=== PATIENT | female | born 1975 | race Caucasian/White ===

== ENCOUNTER 2021-12-07 13:02 | Inpatient (IN) | payer OTHER, BC ==
--- OUTSIDE RECORDS SUMMARY | 2021-12-07 13:08 | XMS REPORT | Continuity of Care Document ---
:1975 Author Organization [facility] t Address [address] [place] [address] Dr. Johnson [address] [place] [address] Care Team Providers Name Role Phone Harriet Cortney Primary Care Physician ROMI LANE Attending Clinician Unavailable Romi Lane DO Attending Clinician CATHRYN GARSIA Attending Clinician Unavailable Cathryn Malloy Attending Clinician Doctor Unassigned, [facility] Attending Clinician Unavailable Radiology Attending Clinician Unavailable RADIOLOGY Attending Clinician Unavailable Lorri KHANNA, Magdalena García Attending Clinician Delilah Gresham MD Attending Clinician MELBA ARROYO Attending Clinician Unavailable YONNY HUERTA Admitting Clinician Unavailable Mp SMALL, Delilah Boykin Admitting Clinician MELBA ARROYO Admitting Clinician Unavailable Payers Payer Name Policy Type Policy Number Effective Date Expiration Date S liliana OPEN ACCESS AETNA [id number] 2012 00:00:00 [employer] EPO AET[employer] HMO [id number] 2014 00:00:00 [facility] [place] [facility] - [id number] 2018 00:00:00 OUT OF STATE Problems Condition Condition Condition Status Onset Resolution Last Treating Co mments Source Name Details Category Date Date Treatment Clinician Date Stroke-lik Stroke-lik Disease Active U nivers e symptoms e symptoms 3 it y of 00:00: [place] [facility] Obesity Obesity Disease Active Univers (BMI (BMI 3- ity of 30-39.9) 30-39.9) 00:00: [place] [address] Medical Branch Migraine Migraine Disease Active Unive rs syndrome syndrome 06-02 ity of 00:00: [place] [address] Medical Branch Allergies, Adverse Reactions, Alerts Allergy Allergy Status Severity Reaction(s) Onset Inactive Treating Comm ents Source Name Type Date Date Clinician No Known DA Active U [facility] 8-15 [facility] [address] [place] [address] NO KNOWN Drug Active [facility] ALLERGIE Class ity of [facility] [place] [facility] Social History Social Habit Start Date Stop Date Quantity Comments Source Exposure to 2021-11-26 2021-12-06 Not sure [facility] SARS-CoV-2 (event) 00:00:00 15:28:00 Medica l Branch Sex Ass[birth year] At [birth year] [facility] 00:00:00 00:00:00 Medical Branch Smoking Status Start Date Stop Date Source Tobacco smoking consumption [facility] Branch Medications Ordered Filled Start Stop Current Ordering Indication Dosage Frequency Signature Comments Components Source Medication Medication Date Date Medication? Clinician (SIG) Name Name ketorolac 10mg 10 mg, Unive rs (TORADOL) 12-06 Oral, ity of tablet 10 23:00: 22:18 ONCE, 1 [place] mg [place] :00 dose, On Medical Mon Branch 12/06/21 at 1800, JOE polyethylen Yes [id number] 17g Take 17 g Univers e glycol 9-12 by mouth ity of 3350 17 00:00: in the [place] gram/dose 00 morning. Medica l powder Branch hydrocortis Yes [id number] 1{appli Insert 1 Univers one-pramovi 12-06 cator} Applicator ity of ne 00:00: into [place] (PROCTOFOAM 00 rectum in Med ical HC) rectal the Branch foam morning and 1 Applicator in the evening. LORazepam 2021- No 1mg 1 mg, Univer s (ATIVAN) 16 03-16 Oral, ity of tablet 1 mg 22:45: 22:12 [place]CE[place] 1 [place] :[place] dose, On Medical Mon Branch 06/09/21 at 1745, JOE amoxicillin 2020-03 Yes 1{tbl} 1 tablet, Univers -clavulanat 2-02 Oral, ity of e 14:00: Q12H, [place] (AUGMENTIN) 00 First dose Me dical 875-125 mg on Michelle Branch per tablet 02/25/21 at 1 tablet 0800, Until Discontinu ed, Routine
Reason for Anti-Infec tive: Documented Infection< br>Documen winston Infection Site: HEENT
D uration of Therapy: 10 days NaCl 0.9% 2020-03- No 1000mL at 999 Uni vers (NS) bolus 04-28-02 mL/hr, ity of infusion 00:00: 02:41 1,000 mL, [place] 1,000 mL 00 :00 IV Medical Infusion, Branch ONCE, 1 dose, On Mon02/24/21 at 1800, STAT acetaminoph 2020-03- No 1000mg 1,000 mg, Univers en 2 12-02 Oral, ity of (TYLENOL) 00:00: 00:34 ONCE, 1 [place] tablet 00 :00 dose, On Medical 1,000 mg Mon Branch 02/24/21 at 1800, Routine amoxicillin 2020-03 Yes [id number] 1{tbl} Take 1 Univers -clavulanat 2-01 tablet by ity of e 875-125 00:00: mouth [place] mg per 00 every 12 Medical tablet (twelve) Branch hours. codeine-gua 2020-03 Yes [id number] 5mL Take 5 mL U nivers ifenesin 2-01 by mouth ity of 10-100 mg/5 00:00: every 6 [place] mL oral 00 (six) Medical solution hours as Branch needed for Cough. Indication s: acute pain amoxicillin 2020-03 Yes [id number] 1{tbl} Take 1 Univers -clavulanat 2-01 tablet by ity of e 875-125 00:00: mouth [place] mg per 00 every 12 Medical tablet (twelve) Branch hours. codeine-gua 2020-03 Yes [id number] 5mL Take 5 mL U nivers ifenesin 2-01 by mouth ity of 10-100 mg/5 00:00: every 6 [place] mL oral 00 (six) Medical solution hours as Branch needed for Cough. Indication s: acute pain amoxicillin 2020-03 Yes [id number] 1{tbl} Take 1 Univers -clavulanat 2-01 tablet by ity of e 875-125 00:00: mouth [place] mg per 00 every 12 Medical tablet (twelve) Branch hours. codeine-gua 2020-03 Yes [id number] 5mL Take 5 mL U nivers ifenesin 2-01 by mouth ity of 10-100 mg/5 00:00: every 6 [place] mL oral 00 (six) Medical solution hours as Branch needed for Cough. Indication s: acute pain amoxicillin 2020-03 Yes [id number] 1{tbl} Take 1 Univers -clavulanat 2-01 tablet by ity of e 875-125 00:00: mouth [place] mg per 00 every 12 Medical tablet (twelve) Branch hours. codeine-gua 2020-03 Yes [id number] 5mL Take 5 mL U nivers ifenesin 2-01 by mouth ity of 10-100 mg/5 00:00: every 6 [place] mL oral 00 (six) Medical solution hours as Branch needed for Cough. Indication s: acute pain aspirin Yes 81mg 81 mg, Univers chewable 3-10 Oral, ity of tablet 81 15:00: DAILY, [place] mg 00 First dose Medical on Mon Branch 06/03/20 at 0900, Until Discontinu ed, Routine atorvastati Yes 20mg 20 mg, Univ ers n (LIPITOR) 3-10 Oral, QHS, it y of tablet 20 03:00: First dose [place] mg 00 on [facility] 06/02/20 at Branch 2100, Until Discontinu ed, Routine aspirin 81 0 Yes [id number] 81mg Take 1 Univers mg chewable 3-10 tablet by ity of tablet 00:00: mouth [place] 00 daily. [facility] aspirin 81 2020-0 Yes [id number] 81mg Take 1 Univers mg chewable 3-10 tablet by ity of tablet 00:00: mouth [place] 00 daily. [facility] aspirin 81 2020-0 Yes [id number] 81mg Take 1 Univers mg chewable 3-10 tablet by ity of tablet 00:00: mouth [place] 00 daily. [facility] aspirin 81 2020-0 Yes [id number] 81mg Take 1 Univers mg chewable 3-10 tablet by ity of tablet 00:00: mouth [place] 00 daily. [facility] aspirin 81 0 Yes [id number] 81mg Take 1 Univers mg chewable 3-10 tablet by ity of tablet 00:00: mouth [place] 00 daily. [facility] aspirin 81 0 Yes [id number] 81mg Take 1 Univers mg chewable 3-10 tablet by ity of tablet 00:00: mouth [place] 00 daily. [facility] aspirin 81 0 Yes [id number] 81mg Take 1 Univers mg chewable 3-10 tablet by ity of tablet 00:00: mouth [place] 00 daily. [facility] paroxetine Yes 10mg Take 10 mg U nivers 10 mg 3-09 by mouth ity of tablet 21:20: daily. [address] paroxetine 0 Yes 10mg Take 10 mg U nivers 10 mg 3-09 by mouth ity of tablet 21:20: daily. [address] paroxetine 0 Yes 10mg Take 10 mg U nivers 10 mg 3-09 by mouth ity of tablet 21:20: daily. [address] perflutren 2020- No [id number] 2mL 2 mL, IV Univers lipid 06-02 03-09 Push, ity of microsphere 21:00: 16:28 ONCE, 1 [place] 00 :00 dose, [facility] (DEFINITY) 06/02/20 at [facility] ch injection 2 1500, mL Routine Saline Yes [id number] 6mL 6 mL, Unive rs Bubble 3 Injection, ity of Study 20:47: SEE-INSTRU [place] 02 CTIONS, Medical Starting Branch [facility] 06/02/20 at 1447, Until Discontinu ed, Routine paroxetine Yes 10mg Take 10 mg U nivers 10 mg -09 by mouth ity of tablet 15:20: daily. [address] paroxetine Yes 10mg Take 10 mg U nivers 10 mg - by mouth ity of tablet 15:20: daily. [address] paroxetine Yes 10mg Take 10 mg U nivers 10 mg -09 by mouth ity of tablet 15:20: daily. [address] paroxetine Yes 10mg Take 10 mg U nivers 10 mg - by mouth ity of tablet 15:20: daily. [address] Sliding Yes Subcutaneo Univ ers Scale 3-09 us, TID ity of Insulin - 14:00: MEALS+HS, [place] Lispro 00 First dose Medical (HumaLOG) + on [facility] 06/02/20 at Testing 0800, Until Discontinu ed, Routine famotidine Yes 20mg 20 [facility], [facility] 3 Oral, BID, it y of tablet 20 14:00: First dose [place] mg 00 on [facility] 06/02/20 at Branch 0800, Until Discontinu ed, Routine heparin Yes 5000U 5,000 Univers (porcine) 06-02 Units, ity of injection 14:00: Subcutaneo [place] 5,000 Units 00 us, Q12H, Med ical First dose Branch on [facility] 06/02/20 at 0800, Until Discontinu ed, Routine aspirin 0 2020- No 325mg 325 mg, [facility] rs E.C. 06-02 Oral, ONCE ity of (ECOTRIN) 07:45: 10:15 NOW, 1 [place] tablet 325 00 :00 dose, [facility] alexa mg 06/02/20 at Branch 0145, STAT LORazepam 0 2020- No 1mg 1 mg, Slow U nivers (ATIVAN) 06-02 IV Push, ity of injection 1 04:45: 04:00 ONCE, 1 [place] mg 00 :00 dose, Mon Medical 06/01/20 at Branch 2245, STAT iohexol 2020-0 2020- No [id number] 100mL 100 mL, U nivers (OMNIPAQUE 06-02-09 Intravenou it y of 350 03:00: 02:49 s, ONCE, 1 [place] BULK-100 00 :00 dose, Mon Medica l mL) 06/01/20 at Branch injection 2100, 100 mL Routine paroxetine 2018-0 Yes 10mg Take 10 mg U nivers 10 mg 9-04 by mouth ity of tablet 23:20: daily. [address] Branch naproxen 2018-0 Yes 500mg Take 1 Univer s (NAPROSYN) 9-04 tablet by ity of 500 mg 00:00: mouth 2 [place] tablet 00 (two) Medical times Branch daily with meals. naproxen 2018-0 Yes 500mg Take 1 Univer s (NAPROSYN) 9-04 tablet by ity of 500 mg 00:00: mouth 2 [place] tablet 00 (two) Medical times Branch daily with meals. naproxen 2018-0 Yes 500mg Take 1 Univer s (NAPROSYN) 9-04 tablet by ity of 500 mg 00:00: mouth 2 [place] tablet 00 (two) Medical times Branch daily with meals. naproxen 2018-0 Yes 500mg Take 1 Univer s (NAPROSYN) 9-04 tablet by ity of 500 mg 00:00: mouth 2 [place] tablet 00 (two) Medical times Branch daily with meals. naproxen 2018-0 Yes 500mg Take 1 Univer s (NAPROSYN) 9-04 tablet by ity of 500 mg 00:00: mouth 2 [place] tablet 00 (two) Medical times Branch daily with meals. naproxen 2018-0 Yes 500mg Take 1 Univer s (NAPROSYN) 9-04 tablet by ity of 500 mg 00:00: mouth 2 [place] tablet 00 (two) Medical times Branch daily with meals. naproxen 2018-0 Yes 500mg Take 1 Univer s (NAPROSYN) 9-04 tablet by ity of 500 mg 00:00: mouth 2 [place] tablet 00 (two) Medical times Branch daily with meals. naproxen 2018-0 Yes 500mg Take 1 Univer s (NAPROSYN) 9-04 tablet by ity of 500 mg 00:00: mouth 2 [place] tablet 00 (two) Medical times Branch daily with meals. Vital Signs Vital Name Observation Time Observation Value Comments Source Systolic blood 2021-12-06 22:20:00 107 mm[Hg] Univer sity of pressure [place] [facility] Diastolic blood 2021-12-06 22:20:00 78 mm[Hg] Unive rsity of pressure [place] [facility] Heart rate 2021-12-06 22:20:00 105 /min Universi ty of [place] [facility] Respiratory rate 2021-12-06 22:20:00 17 /min Univ ersity of [place] [facility] Oxygen saturation in 2021-12-06 22:20:00 98 /min University of Arterial blood by [facility] Pulse oximetry Branch Body temperature 2021-12-06 20:29:00 36.56 Alexandra [facility] ersity of [place] [facility] Body height 2021-12-06 20:29:00 167.6 cm Universi ty of [place] [facility] Body weight 2021-12-06 20:29:00 83.915 kg Universi ty of [place] [facility] BMI 2021-12-06 20:29:00 29.86 kg/m2 Universi ty of [place] [facility] Systolic blood 2021-06-09 22:45:00 120 mm[Hg] Univer sity of pressure [place] [facility] Diastolic blood 2021-06-09 22:45:00 86 mm[Hg] Unive rsity of pressure [place] [facility] Heart rate 2021-06-09 22:45:00 67 /min Universi ty of [place] [facility] Respiratory rate 2021-06-09 22:45:00 18 /min Univ ersity of [place] [facility] Oxygen saturation in 2021-06-09 22:45:00 100 /min University of Arterial blood by [place] [employer] alexa Pulse oximetry Branch Body temperature 2021-06-09 18:42:00 37.11 Alexandra [facility] ersity of [place] [facility] Body height 2021-06-09 18:42:00 167.6 cm Universi ty of [place] [facility] Body weight 2021-06-09 18:42:00 90.719 kg Universi ty of [place] [facility] BMI 2021-06-09 18:42:00 32.28 kg/m2 Universi ty of [place] [facility] Systolic blood 2021-02-25 02:00:00 127 mm[Hg] Univer sity of pressure [place] [facility] Diastolic blood 2021-02-25 02:00:00 85 mm[Hg] Unive rsity of pressure [place] [facility] Heart rate 2021-02-25 02:00:00 104 /min Universi ty of [place] [facility] [place] Body temperature 2021-02-25 02:00:00 37.44 Alexandra Univ ersity of [place] [facility] [place] Respiratory rate 2021-02-25 02:00:00 21 /min Univ ersity of [place] [facility] Oxygen saturation in 2021-02-25 02:00:00 94 /min University of Arterial blood by [place] [employer] alexa Pulse oximetry Branch Body height 2021-02-24 21:34:00 165.1 cm Universi ty of [place] [facility] [place] Body weight 2021-02-24 21:34:00 92.987 kg Universi ty of [place] [facility] [place] BMI 2021-02-24 21:34:00 34.11 kg/m2 Universi ty of [place] [facility] Systolic blood 2020-06-02 17:44:00 125 mm[Hg] Univer sity of pressure [place] [facility] Diastolic blood 2020-06-02 17:44:00 73 mm[Hg] Unive rsity of pressure [place] [facility] [place] Heart rate 2020-06-02 17:44:00 69 /min Universi ty of [place] [facility] [place] Body temperature 2020-06-02 17:44:00 36.94 Alexandra Univ ersity of [place] [facility] Oxygen saturation in 2020-06-02 17:44:00 97 /min University of Arterial blood by [place] [employer] alexa Pulse oximetry Branch Respiratory rate 2020-06-02 13:30:00 15 /min Univ ersity of [place] [facility] Body height 2020-06-02 07:07:00 167.6 cm Universi ty of [place] [facility] Body weight 2020-06-02 07:07:00 92.08 kg Universi ty [facility] [place] [facility] BMI 2020-06-02 07:07:00 32.77 kg/m2 [facility]i ty [facility] [place] [facility] Procedures Procedure Date / Time Performing Source Performed Clinician VILLA FARLEY 2021-12-[address] [facility] 21:01:00 Medical Branch CONSENT/REFUSAL FOR DIAGNOSIS 2021-12-06 Doctor Unassigned, [facility] AND TREATMENT 20:03:29 [facility] [place] POCT TEST 2021-06-09 Singer [facility] 19:19:00 Medical Branch XR CHEST 1 VW 2021-06-09 Singer [facility] [place] 19:15:07 Medical Branch LIPASE 2021-06-09 Singer [facility] [place] 18:57:00 Medical Branch TROPONIN I 2021-06-09 Singer [facility] [place] 18:57:00 Medical Branch COMP. METABOLIC PANEL ([id number]) 2021-06-09 Yonny Huerta [facility] 18:57:00 Medical Branch CBC WITH DIFF 2021-06-09 Singer [facility] [place] 18:57:00 Medical Branch PROTHROMBIN TIME / INR 2021-06-09 [facility] 18:57:00 Medical Branch ACTIVATED PARTIAL THRMPLAS 2021-06-09 Singer Yonny [facility] [place] 18:57:00 Medical Branch HB ECG ROUTINE & RHYTHM STRIP 2021-06-09 [facility] 18:49[facility]53 Medical Branch NOTICE OF PRIVACY PRACTICES 2021-06-09 Doctor Unasspavel, [facility] 18:40:08 [facility] [place] CONSENT/REFUSAL FOR DIAGNOSIS 2021-06-09 Doctor Unassigned, [facility] AND TREATMENT 18:38:49 [facility] [place] BASIC METABOLIC PANEL (NA, K, 2021-02-25 Cathryn Garsia [facility] CL, CO2, GLUCOSE, BUN, 00:25:00 Medical B ran CREATININE, CA) CBC WITH DIFF 2021-02-25 Cathryn Garsia [facility] 00:25:00 Medical Branch D-DIMER 2021-02-25 Cathryn Garsia [facility] 00:25:00 Medical Branch XR CHEST 2 VW 2021-02-24 Singer [facility] [place] 21:56:15 Medical Branch COVID-19 (ID NOW RAPID 2021-02-24 Singer [facility] TESTING) 21:40:00 Medical Branch CONSENT/REFUSAL FOR DIAGNOSIS 2021-02-24 Doctor Unassigned, [facility] AND TREATMENT 21:21:56 [facility] Medical Branch ASSIGNMENT OF BENEFITS 2020-08-11 Doctor Unassigned, [facility] 21:10:39 [facility] POCT GLUCOSE (AUTOMATED) 2020-06-02 Delilah Gresham [facility] 19:11:00 [facility] TRANSTHORACIC ECHO (TTE) 2020-06-02 [facility] COMPLETE W/ CONTRAST 16:35:00 [facility] POCT GLUCOSE (AUTOMATED) 2020-06-02 Delilah Gresham [facility] 15:45:00 [facility] MR STROKE BRAIN WO CONTRAST 2020-06-02 [facility] 11:33:13 [facility] VITAMIN B12, LEVEL 2020-06-02 [facility] 10:22:00 [facility] TEST, SERUM 2020-06-02 [facility] 10:22:00 [facility] FREE T4 2020-06-02 [facility] 10:22:00 [facility] LIPID PANEL ([id number])(TOTAL 2020-06-02 [facility] CHOLESTEROL, TRIGLYCERIDES, 10:22:00 [facility] HDL) ANTI-NUCLEAR ANTIBODY SCREEN 2020-06-02 [facility] 10:22:00 [facility] HOMOCYSTEINE 2020-06-02 [facility] 10:22:00 [facility] FACTOR 5 LEIDEN 2020-06-02 [facility] 10:22:00 [facility] COVID-19 (ID NOW RAPID 2020-06-02 Magdalena Blackmon [facility] TESTING) 03:31:[address] [facility] [address] STROKE ANGIOGRAM HEAD 2020-06-02 Magdalena Blackmon [facility] 02:59:[address] [facility] [address] STROKE ANGIOGRAM NECK 2020-06-02 Magdalena Blackmon [facility] 02:59:[address] [facility] [address] STROKE HEAD WO CONTRAST 2020-06-02 Magdalena Blackmon [facility] 02:41:00 [facility] Branch POCT TEST 2020-06-02 Lorri [facility] [address] 02:26:00 [facility] POCT GLUCOSE (AUTOMATED) 2020-06-02 Magdalena Blackmon [facility] 02:21:00 Medical Branch LIPASE 2020-06-02 Magdalena Blackmon [facility] [place]as 01:40:00 [facility] TROPONIN I 2020-06-02 Zena Blackmonala [facility] ex 01:40:00 [facility] THYROID STIMULATING HORMONE 2020-06-02 Magdalena Blackmon [facility] 01:40:00 [facility] HEPATIC FUNCTION PANEL 2020-06-02 Magdalena Blackmon [facility] ([id number]) (ALB,T.PRO,BILI 01:40:00 [facility] Branch T,BU/BC,ALT,AST,ALK PHOS) BASIC METABOLIC PANEL (NA, K, 2020-06-02 Magdalena Blackmon [facility] CL, CO2, GLUCOSE, BUN, 01:40:00 [facility] ranch CREATININE, [place]) CBC WITH DIFF 2020-06-02 [facility] 01:40:00 [facility] GLYCOSYLATED HEMOGLOBIN (A1C) 2020-06-02 [facility] 01:40:00 [facility] PROTHROMBIN TIME / INR 2020-06-02 Magdalena Blackmon [facility] 01:40:00 [facility] Branch D-DIMER 2020-06-02 [facility] 01:40:00 [facility] Branch ACTIVATED PARTIAL THRMPLAS 2020-06-02 Magdalena Blackmon [facility] ELENITA 01:40:00 [facility] Branch URINALYSIS 2020-06-02 [facility] [place] 01:40:00 [facility] N-TERMINAL PRO-BNP 2020-06-02 Zena Blackmonala Teresita [facility] 01:40:00 [facility] ADC / LCC - DRUG SCREEN 2020-06-02 Magdalena Blackmon [facility] TRIAGE 01:40:00 [facility] HB ECG ROUTINE & RHYTHM STRIP 2020-06-02 Magdalena Blackmon [facility] 01:34:59 Medical Branch CONSENT/REFUSAL FOR DIAGNOSIS 2020-06-02 Doctor Unassigned, [facility] AND TREATMENT 01:17:58 [facility] ELECTROENCEPHALOGRAM 2020-06-02 Shayan Cespedes, [facility] 00:00:00 [facility] AGREEMENTS AUTHORIZATIONS AND 2020-06-01 Doctor Unasspavel, [facility] IRREVOCABLE ASSIGNMENTS (FORM 06:01:00 [facility] Wi dical Branch 2000) HOSPITAL ADMISSION 2020-06-01 Doctor Unassigned, [facility] 06:01:00 [facility] XR CHEST 2 VW COVID 2020-04-07 Requisition, Paper [facility] 20:02:22 Medical Branch Encounters Start End Encounter Admission Attending Care Care Encounter Source Date/Time Date/Time Type Type Clinicians Facility Department ID 2021-07-15 Outpatient [facility] [id number] [place] 09:44:36 [id number] [facility] 2021-01-[address] [facility] [id number] Univers 04:18:07 ity [facility] 2021-12-06 2021-12-06 Emergency [facility] [id number] Univers 15:32:00 17:39:00 ROMI [facility] 2021-12-06 2021-12-06 Emergency [facility] [id number] Univers 15:32:00 17:39:00 Romi GOODWIN [id number] i ty of [place] [id number] [facility] [id number] [address] 2021-06-09 2021-06-09 Emergency X [facility] [id number] Univers 13:46:00 18:36:00 CATHRYN ity [facility] 2021-06-09 2021-06-09 Emergency [facility] [id number] Univers 13:46:00 18:36:00 Cathryn Velázquez BUDDY [id number] i ty of [place] [id number] [facility] [id number] [address] 2021-06-09 2021-06-09 Orders Doctor BRAVO [id number] Univers 00:00:00 00:00:00 Only Unassigned, [place] [id number] ity of [facility]amo [facility] [id number] [place] [id number] [address] 2021-02-24 2021-02-24 Emergency X [facility] ERT [id number] Univers 15:46:00 20:45:00 CATHRYN ity [facility] 2021-02-24 2021-02-24 Emergency [facility] [id number] Univers 15:46:00 20:45:00 Cathryn S BUDDY [id number] i ty [facility] [id number] [facility] [id number] [facility] 084 [place] 2020-08-11 2020-08-11 Hospital Radiology [facility] [id number] Univers 16:12:09 23:59:00 Encounter Buddy [id number] ity [facility] [id number] [facility] [id number] [facility] 807 Branch 2020-08-11 2020-08-[address] [facility] [id number] Univers 16:15:00 16:15:[id number] [facility] 2020-08-11 2020-08-[address] [facility] [id number] Univers 00:00:00 00:00:[address] [facility] 2020-08-11 2020-08-11 Orders Doctor BRAVO [id number] Univers 00:00:00 00:00:00 Only UnassignedFEDERICO [id number] ity of Vamo [facility] [id number] [place] as [id number] [address] 2020-06-01 2020-06-02 [facility] Magdalena Blackmon [id number] Univers 19:27:00 15:00:00 Encounter Delilah Gresham [id number] ity of Hospital [id number] [facility] [id number] [facility] 098 Branch 2020-05-05 2020-05-05 Emergency X ADY [facility] ERT [id number] Univers 12:19:00 12:19:00 CATHRYN [facility] 2020-04-07 2020-04-07 Hospital Radiology [facility] [id number] Univers 13:50:35 23:59:00 Encounter Buddy [id number] [facility] [id number] [facility] [id number] [facility] 807 Branch 2020-04-07 2020-04-[address] [facility] [id number] [facility] 00:00[facility]00 00:00:00 [facility] 2020-01-23 2020-01-24 Outpatient E [facility] MED [address] [facility] 10:33:00 12:44:00 PETER Results Test Description Test Time Test Comments Results Result Comments Source TROPONIN I 2021-06-09 19:59:02 Test Item Value Reference Range Interpretation Comme nts TROPONIN I (test code = 0.001 ng/mL See_Comment [Au tomated message] The 5203338212) system which ge nerated this result tra nsmitted reference range : <=0.034. The reference r belkis was not used to int erpret this result as normal/abnormal . MARIAM (test code = MARIAM) Reference (Normal) Range (defined by the 99th percentile reference limit): <= 0.034 ng/mL Note: Cardiac troponin begins to rise 3-4 hours after the onset of ischemia. Repeat in 4-6 hours if the sample was drawn within 3-4 hours of the onset of the symptom and found normal. Diagnosis of myocardial injury is made with acute changes in cTn concentrations with at least one serial sample above the 99th percentile upper reference limit (URL), taken together with the patient's clinical presentation. Biotin has been reported to cause a negative bias, interpret results relative to patient's use of biotin. Lab Interpretation Normal (test code = 30783-3) [facility]OL[facility] (88127)2021-06-09 19:48:18 Test Item Value Reference Range Interpretation Comments NA (test code = 138 mmol/L 135-145 1062928221) K (test code = 4.1 mmol/L 3.5-5.0 1375346875) CL (test code = 102 mmol/L 98-108 7584842099) CO2 TOTAL (test code 27 mmol/L 23-31 = 2338473146) AGAP (test code = 2-16 8673491430) BUN (test code = 10 mg/dL 7-23 1438324095) GLUCOSE (test code = 83 mg/dL 70-110 6738543104) CREATININE (test code 0.71 mg/dL 0.50-1.04 = 1213804149) TOTAL BILI (test code 0.5 mg/dL 0.1-1.1 = 7738464726) CALCIUM (test code = 9.1 mg/dL 8.6-10.6 3591609251) T PROTEIN (test code 7.4 g/dL 6.3-8.2 = 4621222780) ALBUMIN (test code = 4.6 g/dL 3.5-5.0 7277154227) ALK PHOS (test code = 78 U/L 34-122 7155317610) ALTv (test code = 14 U/L 5-35 1742-6) AST(SGOT) (test code 23 U/L 13-40 = 4865986857) eGFR (test code = mL/min/1.73m2 4316770078) MARIAM (test code = MARIAM) Association of Glomerular Filtration Rate (GFR) and Staging of Kidney Disease* + + +- +| GFR (mL/min/1.73 m2) ?| With Kidney Damage ?| ?Without Kidney Damage+ ------+ ----+ ------+| ?>90 ?| ?Stage one ?| ? Normal ?+ -+ + -+| ?60-89 ?| ?Stage two ?| ? Decreased GFR ? + + +- +| ?30-59 ?| ?Stage three ?| ? Stage three ? + + +- +| ?15-29 ?| ?Stage four ? | ? Stage four ?+ -+ + -+| ?<15 (or dialysis) ? ?| ?Stage five ? | ? Stage five ?+ -+ + -+ *Each stage assumes the associated GFR level has been in effect for at least three months. ?Stages 1 to 5, with or without kidney disease, indicate chronic kidney disease. Notes: Determination of stages one and two (with eGFR >59mL/min/1.73 m2) requires estimation of kidney damage for at least three months as defined by structural or functional abnormalities of the kidney, manifested by either:Pathological abnormalities or Markers of kidney damage (including abnormalities in the composition of the blood or urine or abnormalities in imaging tests). [facility] CenterLIPASE, [id number] 19:47:42 Test Item Value Reference Range Interpretation Comments LIPASE (test code = 2147655517) 83 U/L 0-220 Lab Interpretation (test code = Normal 17195-6) [facility]eraPTT2022-[facility]-16 19:45:01 Test Item Value Reference Range Interpretation Comments APTT Patient (test See_Comment [Automat ed code = 3173-2) message] The system which generated this result transmitted reference range : 23 - 38 Seconds . The reference range was not used to interpr et this result as normal/abnormal . MARIAM (test code = MARIAM) The [facility] patient population mean normal value for aPTT is 30 seconds. Lab Interpretation Normal (test code = 04439-1) [facility] CenterPROTHROMBIN TIME / [id number] 19:42:59 Test Item Value Reference Range Interpretation Comments PROTIME PATIENT (test See_Comment [Auto mated message] code = 5964-2) The system [facility] generated this result transmitted ref erence range: 12.0 - 1 4.7 Seconds. The re ference range was not u sed to interpret this result as normal/abnor mal. INR (test code = 6301-6) Nor mal INR <1.1; Warfarin Therap eutic range 2.0 to 3. 0 or 2.5 to 3.5, dep ending upon the indica tions. Lab Interpretation (test Normal code = 17083-0) [facility] CenterCBC WITH [id number] 19:35:16 Test Item Value Reference Range Interpretation Comments WBC (test code = See_Comment [Automated message] 6690-2) The system whic h generated this result transmitted ref erence range: 4.30 - 1 1.10 10*3/?L. The re ference range was not u sed to interpret this result as normal/abnor mal. RBC (test code = See_Comment [Automated message] 789-8) The system [employer] generated this result transmitted ref erence range: 3.93 - 5 .25 10*6/?L. The re ference range was not u sed to interpret this result as normal/abnor mal. HGB (test code = 12.4 g/dL 11.6-15.0 718-7) HCT (test code = 37.4 % 35.7-45.2 4544-3) MCV (test code = 94.7 fL 80.6-95.5 787-2) MCH (test code = 31.4 pg 25.9-32.8 785-6) MCHC (test code = 33.2 g/dL 31.6-35.1 786-4) RDW-SD (test code 44.7 fL 39.0-49.9 = 03048-2) RDW-CV (test code 12.8 % 12.0-15.5 = 788-0) PLT (test code = See_Comment [Automated message] 777-3) The system [employer] generated this result transmitted ref erence range: 166 - 35 8 10*3/?L. The re ference range was not u sed to interpret this result as normal/abnor mal. MPV (test code = 9.7 fL 9.5-12.9 77249-5) NRBC/100 WBC (test See_Comment [Automat ed message] code = 5061368616) The [employer] which generated this result transmitted ref erence range: 0.0 - 10 .0 /100 WBCs. The refer ence range was not u sed to interpret this result as normal/abnor mal. NRBC x10^3 (test <0.01 See_Comment [Automated message] code = 4830267321) The syste m which generated this result transmitted ref erence range: 10*3/?L. The reference range was not used to interpr et this result as normal/abnormal . GRAN MAT (NEUT) % 57.6 % (test code = 123-8) IMM GRAN % (test 0.20 % code = 6424853538) LYMPH % (test code 32.6 % = 736-9) MONO % (test code 7.7 % = 5905-5) EOS % (test code = 1.3 % 713-8) BASO % (test code 0.6 % = 706-2) GRAN MAT 3.08 10*3/uL 1.88-7.09 x10^3(ANC) (test code = 2994710124) IMM GRAN x10^3 <0.03 0.00-0.06 (test code = 2848219350) LYMPH x10^3 (test 1.74 10*3/uL 1.32-3.29 code = 731-0) MONO x10^3 (test 0.41 10*3/uL 0.33-0.92 code = 742-7) EOS x10^3 (test 0.07 10*3/uL 0.03-0.39 code = 711-2) BASO x10^3 (test 0.03 10*3/uL 0.01-0.07 code = 704-7) [facility] CenterPOCT [id number] 19:19:00 Test Item Value Reference Range Interpretation Comments POCT PREG (test code = 1605) Negative On board controls acceptable with Postive C Line (test code = 3574) POCT PREG LOT # (test code = 3575) [id number] POCT PREG TEST DATE (test 05/24/2022 code = 3576) Lab Interpretation (test code = Normal 98806-9) [facility] CenterD-[id number] 01:07:30 Test Item Value Reference Interpretation Comments Range D-DIMER (test code = See_Comment [Autom ated 1059250716) message] The system which generated this result transmitted reference range : <0.41 ?g/mL (FEU). The reference range was not used to interpret this result as normal/abnormal . MARIAM (test code = This test may be MARIAM) used in conjunction with a clinical pretest probability (PTP) assessment model to exclude venous thromboembolism (VTE) in patients suspected of deep venous thrombosis (DVT) and pulmonary embolism (PE) A D-Dimer value less than 0.50 ?g/ml (FEU) has a negative predicative value of 96 to 100% (95% CI)and 97 to 100% (95% CI) as an aid in the diagnosis of deep vein thrombosis (DVT) and pulmonary embolism when there is low or moderate pretest probability of PE or DVT. D-Dimer values are expressed in initial fibrinogen equivalent units (FEU)" The assay results should be used with other information, including the clinical context, in forming a diagnosis. Lab Interpretation Normal (test code = 19876-7) [facility] METABOLIC PANEL (NA, K, CL, CO2, GLUCOSE, BUN, CREATININE, CA)2021-02-25 01:06:48 Test Item Value Reference Range Interpretation Comments NA (test code = 131 mmol/L 135-145 L 4858242429) K (test code = 4.3 mmol/L 3.5-5.0 0915366298) CL (test code = 100 mmol/L 98-108 3593187520) CO2 TOTAL (test code = 22 mmol/L 23-31 L 1077629427) AGAP (test code = 2-16 8148325183) BUN (test code = 9 mg/dL 7-23 8554428196) GLUCOSE (test code = 95 mg/dL 70-110 1024978877) CREATININE (test code = 0.78 mg/dL 0.50-1.04 8027473003) CALCIUM (test code = 9.3 mg/dL 8.6-10.6 9941493414) eGFR (test code = mL/min/1.73m2 3210938549) MARIAM (test code = MARIAM) Association of Glomerular Filtration Rate (GFR) and Staging of Kidney Disease* + --+ --+ ------+| GFR (mL/min/1.73 m2) ?| With Kidney Damage ?| ?Without Kidney Damage+ --------+ --------+ +| ?>90 ?| ?Stage one ?| ? Normal ?+ ---+ ---+ -------+| ?60-89 ?| ?Stage two ?| ? Decreased GFR ? + --+ --+ ------+| ?30-59 ?| ?Stage three ?| ? Stage three ? + --+ --+ ------+| ?15-29 ?| ?Stage four ? | ? Stage four ?+ ---+ ---+ -------+| ?<15 (or dialysis) ? ?| ?Stage five ? | ? Stage five ?+ ---+ ---+ -------+ *Each stage assumes the associated GFR level has been in effect for at least three months. ?Stages 1 to 5, with or without kidney disease, indicate chronic kidney disease. Notes: Determination of stages one and two (with eGFR >59mL/min/1.73 m2) requires estimation of kidney damage for at least three months as defined by structural or functional abnormalities of the kidney, manifested by either:Pathological abnormalities or Markers of kidney damage (including abnormalities in the composition of the blood or urine or abnormalities in imaging tests). Lab Interpretation Abnormal (test code = 05998-8) [facility] WITH [id number] 00:59:51 Test Item Value Reference Range Interpretation Comments WBC (test code = See_Comment [Automated 5295-2) message] The sy stem which generated this result transmitted reference range : 4.30 - 11.10 10*3/?L. The reference range was not used to interpret this result as normal/abnormal . RBC (test code = See_Comment [Automated 843-8) message] The sy stem which generated this result transmitted reference range : 3.93 - 5.25 10*6/?L. The reference range was not used to interpret this result as normal/abnormal . HGB (test code = 13.1 g/dL 11.6-15.0 718-7) HCT (test code = 39.6 % 35.7-45.2 4544-3) MCV (test code = 93.6 fL 80.6-95.5 787-2) MCH (test code = 31.0 pg 25.9-32.8 785-6) MCHC (test code = 33.1 g/dL 31.6-35.1 786-4) RDW-SD (test code = 42.3 fL 39.0-49.9 50576-2) RDW-CV (test code = 12.3 % 12.0-15.5 788-0) PLT (test code = See_Comment [Automated 127-3) message] The sy stem which generated this result transmitted reference range : 166 - 358 10*3/ ?L. The reference r belkis was not used to interpret this result as normal/abnormal . MPV (test code = 9.6 fL 9.5-12.9 88379-1) NRBC/100 WBC (test See_Comment [Automat ed code = 4225943263) message] The system which generated this result transmitted reference range : 0.0 - 10.0 /100 WBCs. The refer ence range was not u sed to interpret th is result as normal/abnormal . NRBC x10^3 (test code <0.01 See_Comment [Auto mated = 8515680516) message] The s ystem which generated this result transmitted reference range : 10*3/?L. The reference range was not used to interpret this result as normal/abnormal . GRAN MAT (NEUT) % 76.7 % (test code = 770-8) IMM GRAN % (test code 0.50 % = 1849108415) LYMPH % (test code = 12.0 % 736-9) MONO % (test code = 8.9 % 5905-5) EOS % (test code = 1.4 % 713-8) BASO % (test code = 0.5 % 706-2) GRAN MAT x10^3(ANC) 5.00 10*3/uL 1.88-7.09 (test code = 6442238519) IMM GRAN x10^3 (test 0.03 10*3/uL 0.00-0.06 code = 9061527245) LYMPH x10^3 (test code 0.78 10*3/uL 1.32-3.29 L = 731-0) MONO x10^3 (test code 0.58 10*3/uL 0.33-0.92 = 742-7) EOS x10^3 (test code = 0.09 10*3/uL 0.03-0.39 711-2) BASO x10^3 (test code 0.03 10*3/uL 0.01-0.07 = 704-7) Lab Interpretation Abnormal (test code = 96234-7) [facility] CenterSCR [facility] PATY CAD [id number] 14:36:56Name: Jelena : 1975 Sex: F - SCR MAMM BILATERAL PATY CAD DIGITALBILATERAL DIGITAL SCREENING MAMMOGRAM 3D/2D WITH CAD: 09/16/2020LINICAL: Asymptomatic. Digital breast tomosynthesis was performed in addition to routine CC and MLO views. Current mammographic images were evaluated by [employer] CAD (computer-aided detection) software. Comparison is made to exams dated 06/28/2016 mammogram - [facility], 07/30/2013 mammogram, and 07/02/2012 mammogram - [facility]. There are scattered fibroglandular tissues in both breasts. There are benign calcifications in the right breast. No suspicious mass, architectural distortion, malignant type calcification, or lymph node abnormality detected. Breast architecture is stable compared to prior exams.IMPRESSION: BENIGNThere is no mammographic evidence of malignancy. Resume annual screening mammography in one year. Jennifer Park M.D. scteresita/penrad:09/21/2020 14:36:56 Clerk Travel Reservations: Jessica Gomez MM, [facility]ammographyletter sent: BIRADS 1-2 Normal Mammogram BI-RADS: 2 BenignAnti-Nuclear Antibody [id number] 19:38:26 Test Item Value Reference Range Interpretation Comments RADHA (test code = Positive Negative A 0271035767) MARIAM (test code = MARIAM) Negative - No Anti-Nuclear Antibodies detected by IFA.Positive - RADHA IFA screen performed with a 1:80 dilution in adults and a 1:40 dilution in pediatrics. Any RADHA "Positive" will have titer performed and reported separately.Negative - No Anti-Nuclear Antibodies detected by IFA.Positive - RADHA IFA screen performed with a 1:80 dilution in adults and a 1:40 dilution in pediatrics. Any RADHA "Positive" will have titer performed and reported separately. Lab Interpretation (test Abnormal code = 99046-8) [facility] GLUCOSE (AUTOMATED)2020-06-02 19:12:26 Test Item Value Reference Range Interpretation Comments POCT GLU (test code = 0061819292) 89 mg/dL 70-110 Lab Interpretation (test code = Normal 90616-9) [facility] GLUCOSE (AUTOMATED)2020-06-02 15:51:17 Test Item Value Reference Range Interpretation Comments POCT GLU (test code = 0920223110) 183 mg/dL 70-110 H Lab Interpretation (test code = Abnormal 37376-4) [facility] CenterFACTOR 5 [id number] 15:43:58 Test Item Value Reference Range Interpretation Comments FACTOR 5 LEIDEN Normal Normal (test code = 9244440058) MARIAM (test code = Phenotype Characteristics: MARIAM) 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 Incidence: Between 3 and 8 percent of people with ancestry are heterozygous and about 1 in 5000 individuals are homozygous with two copies of the mutation. The mutation is less common in other population.Inheritance: Autosomal dominant. Penetrance: Lifetime risk of thrombosis is 10 percent for heterozygotes and 80 percent for homozygotes. 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 Note: Standardized nomenclature for the Factor 5 Leiden mutation is c.1601G>A (p.Vcr463Pqb). Methodology: Polymerase chain reaction and fluorescence monitoring. Limitations: Rare Factor V mutations (A9047P, S4542X, and Q4546K) and any additional SNPs in the probe binding region may interfere with the target detection and yield an INVALID result. The performance of this assay has not been evaluated with samples from pediatric patients. Counseling and informed consent are recommended for genetic testing. References: OMIM: 611493 https://ghr.nlm.nih.gov/co ndition/nvckbp-q-iaedyt- rombophilia [facility] CenterMR STR[facility]KE BRAIN WO [id number] 13:56:06 No acute intracranial abnormality. EXAMINATION: MR STROKE BRAIN WO CONTRAST HISTORY: Stroke COMPARISON: ?06/01/20 CT TECHNIQUE: Multiplanar and multisequence MRI imaging of the brain wasobtained withoutcontrast. FINDINGS: A few nonspecific foci of T2/FLAIR hyperintensities in the frontal whitematter, which can be seen in patients with migraines.No intracranial hemorrhage or mass. The ventricles, sulci and cisterns are normal in size and symmetric. No acute infarct. Left cerebellar tonsillar ectopia.The calvarium is normal. ?The orbits are grossly unremarkable. Leftmaxillary sinus retention cysts. Left sphenoid sinus mucosal thickening. [facility], Radiant Results Inft User - 06/02/2020 7:57 AM CSTEXAMINATION: MR STROKE BRAIN WO CONTRASTHISTORY: Stroke COMPARISON: 06/01/20 CTTECHNIQUE: Multiplanar and multisequence MRI imaging of the brain wasobtained without contrast.FINDINGS:A few nonspecific foci of T2/FLAIR hyperintensities in the frontal whitematter, which can be seen in patients with migraines.No i ntracranial hemorrhage or mass. The ventricles, sulci and cisterns are normal in size and symmetric.No acute infarct. Left cerebellar tonsillar ectopia.The calvarium is normal. The orbits are grossly unremarkable. Leftmaxillary sinus retention cysts. Left sphenoid sinus mucosal thickening.IMPRESSIONNo acute intracranial abnormality.[facility] CenterGLYCOSYLATED HEMOGLOBIN (A1C)2020-06-02 12:28:07 Test Item Value Reference Range Interpretation Comments HGB A1C (test code = 5.5 % 4.0-6.0 4548-4) MARIAM (test code = MARIAM) %A1C (NGSP) Interpretation (ADA)4.8-5.6 ? ? Normal or (Non-Diabetic Range)5.7-6.4 ? ? Increased Risk (Pre-Diabetic)>6.5 ?Diabetes Indicated Lab Interpretation Normal (test code = 00888-3) [facility] CenterVITAMIN B12, [id number] 12:12:36 Test Item Value Reference Range Interpretation Comments VIT B12 (test code = 349 pg/mL 240-930 0637658039) MARIAM (test code = MARIAM) Biotin has been reported to cause a positive bias, interpret results relative to patient's use of biotin. Lab Interpretation (test Normal code = 93085-0) [facility] CenterFREE [id number] 11:40:12 Test Item Value Reference Range Interpretation Comments FREE T4 (test code = See_Comment [Autom ated message] 4768088370) The system [employer] generated this result transmitted ref erence range: 0.78 - 2 .20 ng/dL:. The ref erence range was not u sed to interpret this result as normal/abnor mal. Lab Interpretation (test Normal code = 09918-1) [facility] CenterHOMOCYSTEINE2021-03-09 11:29:55 Test Item Value Reference Range Interpretation Comments Homocysteine (test code = 6.2 umol/L 4.7-12.6 7307645498) Lab Interpretation (test code = Normal 95326-7) [facility] LIPID PANEL (72705)(TOTAL CHOLESTEROL, TRIGLYCERIDES, HDL)2020-06-02 11:12:32 Test Item Value Reference Range Interpretation Comments CHOL (test code = 160 mg/dL 120-200 0343162029) HDL (test code = 41 mg/dL >50 L 8638287127) HDLC RATIO (test code = See_Comment [Au tomated message] 0493229734) The system [employer] generated this result transmit winston reference range : <=4.5. The refe rence range was not u sed to interpret th is result as normal/abnormal . TRIG (test code = 67 mg/dL 30-170 6891546817) LDL CHOL (test code = 106 mg/dL See_Comment [Auto mated message] 13725-2) The system [employer] generated this result transmit winston reference range : <=160. The refe rence range was not u sed to interpret th is result as normal/abnormal . VLDL (test code = 13 mg/dL 5-60 0826465076) Lab Interpretation (test Abnormal code = 85974-4) [facility] CenterPregnancy Test, [id number] 11:10:36 Test Item Value Reference Range Interpretation Comments PREG SERUM (test code Negative = 3269533529) MARIAM (test code = MARIAM) Less than 10 IU/L. ?If low titer or ectopic is suspected, resubmit specimen in 48-72 hours. [facility] CenterUrinalysis2021-03-09 09:14:26 Test Item Value Reference Range Interpretation Comments APPEARANCE (test code = Clear Clear 3000211335) COLOR (test code = Straw Yellow A 6589211169) PH (test code = 4.8-8.0 5477478726) SP GRAVITY (test code = 1.003-1.030 7791948734) GLU U QUAL (test code = Normal Normal 5380843101) BLOOD (test code = Negative Negative 6947950889) KETONES (test code = Negative Negative 5596811425) PROTEIN (test code = Negative Negative 2887-8) UROBILIN (test code = Normal Normal 6188134270) BILIRUBIN (test code = Negative Negative 3681432637) NITRITE (test code = Negative Negative 1442043729) LEUK SIENNA (test code = Negative Negative 7605123549) RBC/HPF (test code = <1 See_Comment [Autom ated message] 5204605899) The system [employer] generated this result transmitted ref erence range: 0 - 3 HP F. The reference range was not used to int erpret this result as normal/abnormal . WBC/HPF (test code = See_Comment [Autom ated message] 0420588140) The system [employer] generated this result transmitted ref erence range: 0 - 5 HP F. The reference range was not used to int erpret this result as normal/abnormal . BACTERIA (test code = Few Negative A 1884231257) SQ EPITH (test code = HPF 1020418934) Lab Interpretation (test Abnormal code = 99659-0) [facility] CenterCOVID-19 (ID NOW RAPID TESTING)2020-06-02 03:50:18 Test Item Value Reference Range Interpretation Comments SARS-CoV-2 Rapid ID NOW Not Detected Not Detected (test code = 51698-2) MARIAM (test code = MARIAM) ID NOW COVID-19 Assay is an isothermal nucleic acid amplification test intended for the qualitative detection of nucleic acid from SARS-CoV-2 viral RNA in nasopharyngeal (PROPELLER ENGINEER) specimens. It is used under Emergency Use Authorization (EUA) by FDA. The limit of detection (LOD) of the assay is 125 Genome Equivalents/mL. A positive result is indicative of the presence of SARS-CoV-2 RNA. ?Clinical correlation with patient history and other diagnostic information is necessary to determine patient infection status. A negative (Not Detected) result does not preclude SARS-CoV-2 infection. In patients with clinical symptoms and other tests that are consistent with SARS-CoV-2 infection, negative results should be treated as presumptive negative and a new specimen should be tested with alternative PCR molecular test. Invalid: Please collect a new specimen for repeat patient testing if clinically indicated. Lab Interpretation Normal (test code = 96119-3) [facility] CenterCT STROKE ANGIOGRAM [id number] 03:32:32 CT head and neck angiograms are unremarkable with no high-grade stenosis,aneurysm or vascular malformation. Preliminary Report Dictated by Resident: Gamaliel Monroe I, [place] MD., have reviewed this study and agree with theabove report.CT STROKE ANGIOGRAM NECK, CT STROKE ANGIOGRAM HEAD HISTORY: Neuro deficit, acute, stroke suspected TECHNIQUE: CTA imaging of the head and neck were obtained afteradministration 100 cc IV Omnipaque contrast. Coronal and sagittal MIPSreformats are provided. COMPARISON: ?None KAKE OF BURGOS FINDINGS: The PICA origin is visualized bilaterally. The basilar artery is normal incaliber. The superior cerebellar arteries are unremarkable. The posteriorcerebral arteries are unremarkable. The large and of the right FAMILY PRACTICE PHYSICIAN ASSISTANT isnoted. A small left posterior communicating artery is visualized. The distal cervical, petrous, cavernous and supraclinoid internal carotidarteries are unremarkable. The anterior and middle cerebral arteries areunremarkable. An anterior communicatingartery is visualized. NECK FINDINGS: Aortic arch and arch vessel origins: Conventional three-vessel arch. Innominate and subclavian arteries: Patent with no evidence of aneurysm orstenosis. Common carotids: Patent with no evidence of aneurysm or stenosis. Vertebral arteries: Patent with no evidence ofaneurysm or stenosis. Cervical soft tissues: Unremarkable. Lung apices: Clear. Cervical spine: Thereis straightening of the cervical lordosis. Partial opacification of the left maxillary sinus. [facility], Radiant Results Inft User - 06/01/2020 9:33 PM CSTCT STROKE ANGIOGRAM NECK, CT STROKE ANGIOGRAM HEADHISTORY: Neuro deficit, acute, stroke suspected TECHNIQUE: CTA imaging of the head and neck were obtained afteradministration 100 cc IV Omnipaque contrast. Coronal and sagittal MIPSreformats are provided.COMPARISON: NoneCIRCLE OF [place] FINDINGS:The PICA origin is visualized bilaterally. The basilar artery is normal incaliber. The superior cerebellar arteries are unremarkable. The posteriorcerebral arteries are unremarkable. The large and of the right FAMILY PRACTICE PHYSICIAN ASSISTANT isnoted. A small left posterior communicating artery is visualized.The distal cervical, petrous, cavernous and supraclinoid internal carotidarteries are unremarkable. The anterior and middle cerebral arteries areunremarkable. An anterior communicating artery is visualized.NECK FINDINGS:Aortic arch and arch vessel origins: Conventional three-vesselarch.Innominate and subclavian arteries: Patent with no evidence of aneurysm orstenosis.Common carotids: Patent with no evidence of aneurysm or stenosis.Vertebral arteries: Patent with no evidence of aneurysm or stenosis.Cervical soft tissues: Unremarkable.Lung apices: Clear.Cervical spine: There is straightening of the cervical lordosis.Partial opacification of the left maxillary sinus.IMPRESSIONCT head and neck angiograms are unremarkable with no high-grade stenosis,aneurysm or vascular malformation.Preliminary Report Dictated by Resident: South Rothman MD., have reviewed this study and agree with theabove report. [facility] [id number] 03:32:32 CT head and neck angiograms are unremarkable with no high-grade stenosis,aneurysm or vascular malformation. Preliminary Report Dictated by Resident: South Blum MD., have reviewed this study and agree with theabove report.CT STROKE ANGIOGRAM NECK, CT STROKE ANGIOGRAM HEAD HISTORY: Neuro deficit, acute, stroke suspected TECHNIQUE: CTA imaging of the head and neck were obtained afteradministration 100 cc IV Omnipaque contrast. Coronal and sagittal MIPSreformats are provided. COMPARISON: ?None KAKE OF [place] FINDINGS: The PICA origin is visualized bilaterally. The basilar artery is normal incaliber. The superior cerebellar arteries are unremarkable. The posteriorcerebral arteries are unremarkable. The large and of the right FAMILY PRACTICE PHYSICIAN ASSISTANT isnoted. A small left posterior communicating artery is visualized. The distal cervical, petrous, cavernous and supraclinoid internal carotidarteries are unremarkable. The anterior and middle cerebral arteries areunremarkable. An anterior communicatingartery is visualized. NECK FINDINGS: Aortic arch and arch vessel origins: Conventional three-vessel arch. Innominate and subclavian arteries: Patent with no evidence of aneurysm orstenosis. Common carotids: Patent with no evidence of aneurysm or stenosis. Vertebral arteries: Patent with no evidence ofaneurysm or stenosis. Cervical soft tissues: Unremarkable. Lung apices: Clear. Cervical spine: Thereis straightening of the cervical lordosis. Partial opacification of the left maxillary sinus. [facility], Radiant Results Inft User - 06/01/2020 9:33 PM CSTCT STROKE ANGIOGRAM NECK, CT STROKE ANGIOGRAM HEADHISTORY: Neuro deficit, acute, stroke suspected TECHNIQUE: CTA imaging of the head and neck were obtained afteradministration 100 cc IV Omnipaque contrast. Coronal and sagittal MIPSreformats are provided.COMPARISON: NoneCIRCLE OF [place] FINDINGS:The PICA origin is visualized bilaterally. The basilar artery is normal incaliber. The superior cerebellar arteries are unremarkable. The posteriorcerebral arteries are unremarkable. The large and of the right FAMILY PRACTICE PHYSICIAN ASSISTANT isnoted. A small left posterior communicating artery is visualized.The distal cervical, petrous, cavernous and supraclinoid internal carotidarteries are unremarkable. The anterior and middle cerebral arteries areunremarkable. An anterior communicating artery is visualized.NECK FINDINGS:Aortic arch and arch vessel origins: Conventional three-vesselarch.Innominate and subclavian arteries: Patent with no evidence of aneurysm orstenosis.Common carotids: Patent with no evidence of aneurysm or stenosis.Vertebral arteries: Patent with no evidence of aneurysm or stenosis.Cervical soft tissues: Unremarkable.Lung apices: Clear.Cervical spine: There is straightening of the cervical lordosis.Partial opacification of the left maxillary sinus.IMPRESSIONCT head and neck angiograms are unremarkable with no high-grade stenosis,aneurysm or vascular malformation.Preliminary Report Dictated by Resident: South Rothman MD., have reviewed this study and agree with theabove report. [facility] CenterACTIVATED PARTIAL THRMPLAS [id number] 03:13:16 Test Item Value Reference Range Interpretation Comments APTT Patient (test See_Comment [Automat ed code = 3173-2) message] The system which generated this result transmitted reference range : 23 - 38 Seconds . The reference range was not used to interpr et this result as normal/abnormal . MARIAM (test code = MARIAM) The [facility] patient population mean normal value for aPTT is 30 seconds. Lab Interpretation Normal (test code = 30756-8) [facility] CenterPROTHROMBIN TIME / [id number] 03:11:16 Test Item Value Reference Range Interpretation Comments PROTIME PATIENT (test See_Comment [Auto mated message] code = 5964-2) The system wh ich generated this result transmitted ref erence range: 12.0 - 1 4.7 Seconds. The re ference range was not u sed to interpret this result as normal/abnor mal. INR (test code = 6301-6) Nor mal INR <1.1; Warfarin Therap eutic range 2.0 to 3. 0 or 2.5 to 3.5, dep ending upon the indica tions. Lab Interpretation (test Normal code = 49624-5) [facility] CenterTHYROID STIMULATING [id number] 02:57:31 Test Item Value Reference Range Interpretation Comments TSH (test code = See_Comment H [Automated message] [id number]) The system [employer] generated this result transmitted ref erence range: 0.45 - 4 .70 mIU/L. The refe rence range was not u sed to interpret this result as normal/abnor mal. Lab Interpretation (test Abnormal code = 00023-9) [facility] CenterCT [facility]KE HEAD WO [id number] 02:52:[address] STROKE HEAD WO CONTRAST HISTORY: Female 45 years Neuro deficit, acute, stroke suspected COMPARISON: CT head dated 11/02/2016 TECHNIQUE: Routine CT head without contrast FINDINGS: The ventricles and cerebral sulci are normal in caliber and configuration.No hydrocephalus, midline shift or pathological extra- axial fluidcollection is present. The basal cisterns are unremarkable. No acute intracranial hemorrhage or mass effect is present. The mazariegos-whitematter differentiation is preserved.No parenchymal attenuation abnormalityis present. The calvarium and skull base are unremarkable. Themastoid air cells areclear. Scattered mild mucoperiosteal thickening is seen in the visualizedparanasal air sinuses. [facility], Radiant Results Inft User - 06/01/2020 8:53 PM CSTCT STROKE HEAD WO CONTRASTHISTORY: Female 45 years Neuro deficit, acute, stroke suspected COMPARISON: CT head dated 11/02/2016TECHNIQUE: Routine CT head without contrastFINDINGS:The ventricles and cerebral sulci are normal in caliber and configuration.No hydrocephalus, midline shift or pathological extra-axial fluidcollection is present. The basal cisterns are unremarkable.No acute intracranial hemorrhage or mass effect is present. The mazariegos-whitematter differentiation is preserved. No parenchymal attenuation abnormalityis present. The calvarium and skull base are unremarkable. The mastoid air cells areclear. Scattered mild mucoperiosteal thickening is seen in the visualizedparanasal air sinuses.IMPRESSIONNormal CT headUnMemorial Hermann [facility] Hospital KingwoodUrinalysis 2020-06-02 02:51:32 Test Item Value Reference Range Interpretation Comments APPEARANCE (test code = Clear Clear 6533278382) COLOR (test code = Straw Yellow A 7177172650) PH (test code = 4.8-8.0 0800339288) SP GRAVITY (test code = 1.003-1.030 1246782115) GLU U QUAL (test code = Normal Normal 3211000990) BLOOD (test code = Negative Negative 3952132617) KETONES (test code = Negative Negative 3399882707) PROTEIN (test code = Negative Negative 2887-8) UROBILIN (test code = Normal Normal 9890691736) BILIRUBIN (test code = Negative Negative 0575691797) NITRITE (test code = Negative Negative 4697412039) LEUK SIENNA (test code = Negative Negative 5320313693) RBC/HPF (test code = See_Comment [Autom ated message] 9510377430) The system [employer] generated this result transmitted ref erence range: 0 - 3 HP F. The reference range was not used to int erpret this result as normal/abnormal . WBC/HPF (test code = <1 See_Comment [Autom ated message] 4272650776) The system [employer] generated this result transmitted ref erence range: 0 - 5 HP F. The reference range was not used to int erpret this result as normal/abnormal . BACTERIA (test code = Few Negative A 2650523131) SQ EPITH (test code = HPF 6949360801) HYAL CAST (test code = See_Comment [Aut omated message] 0594662593) The system [employer] generated this result transmitted ref erence range: <=2 LPF. The reference range was not used to int erpret this result as normal/abnormal . Lab Interpretation (test Abnormal code = 11098-2) [facility] CenterTroponin [id number] 02:39:06 Test Item Value Reference Range Interpretation Comments TROPONIN I (test 0.002 ng/mL See_Comment [Automated code = 7023593941) message] The system which generated this result transmitted reference range : <=0.034. The reference range was not used to interpret this result as normal/abnormal . MARIAM (test code = Equal or Less than MARIAM) 0.034 ng/ml---Normal ?Note: Cardiac troponin begins to rise 3-4 hours after the onset of ischemia. Repeat in 4-6 hours if the sample was drawn within 3-4 hours of the onset of the symptom and found normal. Between 0.035 and 0.120 ng/mL--- Borderline. Questionable myocardial injury or necrosis ? ?Note: Serial measurement may be necessary to confirm or exclude the diagnosis of myocardial injury or necrosis; Clinical correlation (symptoms, EKGs, imaging studies, and others) required; Repeat in 4-6 hours if clinically indicated. ? Equal or Higher than 0.121 ng/mL---Abnormal. Myocardial Injury or Necrosis Likely ? Biotin has been reported to cause a negative bias, interpret results relative to patient's use of biotin. ? Lab Interpretation Normal (test code = 13551-7) [facility] CenterN-TERMINAL [id number] 02:35:47 Test Item Value Reference Range Interpretation Comments NT-proBNP (test code 41 pg/mL See_Comment [Autom ated = 1501544573) message] The system which generated this result transmitted reference range : <=125. The reference range was not used to interpret this result as normal/abnormal . MARIAM (test code = MARIAM) Biotin has been reported to cause a negative bias, interpret results relative to patient's use of biotin. Lab Interpretation Normal (test code = 98241-2) [facility] CenterPOCT GLUCOSE (AUTOMATED)2020-06-02 02:35:07 Test Item Value Reference Range Interpretation Comments POCT GLU (test code = 0277861276) 90 mg/dL 70-110 Lab Interpretation (test code = Normal 65263-2) [facility] CenterBasi Metabolic Panel (NA, K, CL, CO2, GLUCOSE, BUN, CREATININE, CA)2020-06-02 02:27:04 Test Item Value Reference Range Interpretation Comments NA (test code = 137 mmol/L 135-145 9288224644) K (test code = 3.5 mmol/L 3.5-5.0 7975088153) CL (test code = 100 mmol/L 98-108 0975136307) CO2 TOTAL (test code = 27 mmol/L 23-31 7275150062) AGAP (test code = 2-16 0601660041) BUN (test code = 12 mg/dL 7-23 3566196767) GLUCOSE (test code = 92 mg/dL 70-110 4481709016) CREATININE (test code 0.70 mg/dL 0.50-1.04 = 2025882505) CALCIUM (test code = 9.1 mg/dL 8.6-10.6 6772983756) eGFR Calculation mL/min/1.73m2 (Non-) (test code = 1828730782) eGFR Calculation mL/min/1.73m2 () (test code = 3533493303) MARIAM (test code = MARIAM) Association of Glomerular Filtration Rate (GFR) and Staging of Kidney Disease* + -+ + ---+| GFR (mL/min/1.73 m2) ?| With Kidney Damage ?| ?Without Kidney Damage+ -------+ ------+ ---------+| ?>90 ?| ?Stage one ?| ? Normal ?+ --+ -+ ----+| ?60-89 ?| ?Stage two ?| ? Decreased GFR ? + -+ + ---+| ?30-59 ?| ?Stage three ?| ? Stage three ? + -+ + ---+| ?15-29 ?| ?Stage four ? | ? Stage four ?+ --+ -+ ----+| ?<15 (or dialysis) ? ?| ?Stage five ? | ? Stage five ?+ --+ -+ ----+ *Each stage assumes the associated GFR level has been in effect for at least three months. ?Stages 1 to 5, with or without kidney disease, indicate chronic kidney disease. Notes: Determination of stages one and two (with eGFR >59mL/min/1.73 m2) requires estimation of kidney damage for at least three months as defined by structural or functional abnormalities of the kidney, manifested by either:Pathological abnormalities or Markers of kidney damage (including abnormalities in the composition of the blood or urine or abnormalities in imaging tests). [facility] CenterHepatic Function Panel (ALB, T.PRO, BILI T, BU/BC, ALT, AST, ALK PHOS)2020-06-02 02:27:04 Test Item Value Reference Range Interpretation Comments TOTAL BILI (test code = 0968929539) 0.5 mg/dL 0.1-1.1 BILI UNCON (test code = 6471106005) 0.4 mg/dL 0.1-1.1 BILI CONJ (test code = 6822495115) 0.0 mg/dL 0.0-0.3 T PROTEIN (test code = 8976545119) 7.8 g/dL 6.3-8.2 ALBUMIN (test code = 2997116104) 4.8 g/dL 3.5-5.0 ALK PHOS (test code = 1122479514) 85 U/L 34-122 ALTv (test code = 1742-6) 24 U/L 5-35 AST(SGOT) (test code = 8975694878) 27 U/L 13-40 Lab Interpretation (test code = Normal 04401-5) [facility] CenterLipase [id number] 02:26:49 Test Item Value Reference Range Interpretation Comments LIPASE (test code = 6519724298) 72 U/L 0-220 Lab Interpretation (test code = Normal 28991-9) [facility] CenterPOCT [id number] 02:26:00 Test Item Value Reference Range Interpretation Comments POCT PREG (test code = 1605) negative On board controls acceptable with present C Line (test code = 3574) POCT PREG LOT # (test code = 3575) [id number] POCT PREG TEST DATE (test 2021-12-24 code = 3576) Lab Interpretation (test code = Normal 31531-3) [facility] CenterD-[id number] 02:23:46 Test Item Value Reference Interpretation Comments Range D-DIMER (test code = See_Comment H [Autom ated 0626299106) message] The system which generated this result transmitted reference range : <0.41 ?g/mL (FEU). The reference range was not used to interpret this result as normal/abnormal . MARIAM (test code = This test may be MARIAM) used in conjunction with a clinical pretest probability (PTP) assessment model to exclude venous thromboembolism (VTE) in patients suspected of deep venous thrombosis (DVT) and pulmonary embolism (PE) A D-Dimer value less than 0.50 ?g/ml (FEU) has a negative predicative value of 96 to 100% (95% CI)and 97 to 100% (95% CI) as an aid in the diagnosis of deep vein thrombosis (DVT) and pulmonary embolism when there is low or moderate pretest probability of PE or DVT. D-Dimer values are expressed in initial fibrinogen equivalent units (FEU)" The assay results should be used with other information, including the clinical context, in forming a diagnosis. Lab Interpretation Abnormal (test code = 81092-5) [facility] / [facility] - DRUG SCREEN [id number] 02:21:13 Test Item Value Reference Range Interpretation Comments BENZO U (test code = Negative Negative 8009375674) KAYLEE U (test code = Negative Negative 1275189582) AMPHET (test code = Negative Negative 6228990480) THC (test code = Negative Negative 1510018839) METHADONE (test code = Negative Negative 6316834615) Meth U (test code = Negative Negative 5864330552) OPIATES (test code = Negative Negative 4651100123) Cocaine Metabolite (test Negative Negative code = 8873982258) PROPOXY (test code = Negative Negative 0247044841) Tric U (test code = Negative Negative 2350105183) PCP (test code = Negative Negative 9169515052) OXYCOD (test code = Negative Negative 8614668995) MARIAM (test code = MARIAM) Urine Drug Cutoff Ranges Benzodiazepines: ? ? 150 ng/mLBarbiturates: ?200 ng/mLAmphetamine: ? 500 ng/mLCannabinoids: ?50 ?ng/mLMethadone: ? 200 ng/mLMethamphetamine: ? ? 500 ng/mL Opiates: ? 100 ng/mL or 2000 ng/mLCocaine: ? 150 ng/mLPropoxyphene: ?300 ng/mLTricyclics: ?300 ng/mLOxycodone: ? 100 ng/mLPCP: ? 25 ?ng/mL The results are to be used only for medical (i.e., treatment) purposes. Unconfirmed screening results must not be used for non-medical purposes (e.g., employment testing, legal testing). Lab Interpretation (test Normal code = 95398-7) [facility] with [id number] 02:16:05 Test Item Value Reference Range Interpretation Comments WBC (test code = See_Comment [Automated 6690-2) message] The sy stem which generated this result transmitted reference range : 4.30 - 11.10 10*3/?L. The reference range was not used to interpret this result as normal/abnormal . RBC (test code = See_Comment [Automated 789-8) message] The sy stem which generated this result transmitted reference range : 3.93 - 5.25 10*6/?L. The reference range was not used to interpret this result as normal/abnormal . HGB (test code = 13.6 g/dL 11.6-15.0 718-7) HCT (test code = 41.6 % 35.7-45.2 4544-3) MCV (test code = 96.3 fL 80.6-95.5 H 787-2) MCH (test code = 31.5 pg 25.9-32.8 785-6) MCHC (test code = 32.7 g/dL 31.6-35.1 786-4) RDW-SD (test code = 41.4 fL 39.0-49.9 56156-8) RDW-CV (test code = 11.9 % 12.0-15.5 L 788-0) PLT (test code = See_Comment [Automated 777-3) message] The sy stem which generated this result transmitted reference range : 166 - 358 10*3/ ?L. The reference r belkis was not used to interpret this result as normal/abnormal . MPV (test code = 9.9 fL 9.5-12.9 39891-0) NRBC/100 WBC (test See_Comment [Automat ed code = 3397968429) message] The system which generated this result transmitted reference range : 0.0 - 10.0 /100 WBCs. The refer ence range was not u sed to interpret th is result as normal/abnormal . NRBC x10^3 (test code <0.01 See_Comment [Auto mated = 4951716911) message] The s ystem which generated this result transmitted reference range : 10*3/?L. The reference range was not used to interpret this result as normal/abnormal . GRAN MAT (NEUT) % 58.1 % (test code = 770-8) IMM GRAN % (test code 0.40 % = 1399056609) LYMPH % (test code = 31.9 % 736-9) MONO % (test code = 8.1 % 5905-5) EOS % (test code = 1.0 % 713-8) BASO % (test code = 0.5 % 706-2) GRAN MAT x10^3(ANC) 4.66 10*3/uL 1.88-7.09 (test code = 8170053572) IMM GRAN x10^3 (test 0.03 10*3/uL 0.00-0.06 code = 1924927843) LYMPH x10^3 (test code 2.56 10*3/uL 1.32-3.29 = 731-0) MONO x10^3 (test code 0.65 10*3/uL 0.33-0.92 = 742-7) EOS x10^3 (test code = 0.08 10*3/uL 0.03-0.39 711-2) BASO x10^3 (test code 0.04 10*3/uL 0.01-0.07 = 704-7) Lab Interpretation Abnormal (test code = 89005-8) [facility] CenterElectroencephalogram (EEG) - Duration of test: 20-60 [id number] 00:00:00Date and Time of Procedure: 06/02/2020, 11:11:39- 11:31:38 REPORT TECHNICAL SUMMARY: The EEG was recorded digitally. Electrodes were applied using the International 10/20 System of electrode placement. Eye movements and rhythm strip ECG were monitored on separate channels of the ongoing EEG recording. The occipital dominant rhythm consists of moderate amplitude 9-10 Hz activity. More anteriorly, similaras well as faster frequencies are present, including low amplitude 18-22 Hz activities in the anterior leads. Drowsiness does not reveal any abnormalities. Sleep is not seen. Photic stimulation does not elicit any abnormalities. Hyperventilation is not employed as activation technique. No electrographic seizures or epileptiform abnormalities are seen. IMPRESSION: This EEG is normal in wakefulness and drowsiness. Sleep is not seen. An EMU (epilepsy monitoring unit) referral or long-term (24-96 hours)EEG might be beneficial in this case if clinically indicated, as they have significantly greater sensitivity than a 20-60 minute EEG, which has low sensitivity for detecting epileptiform abnormalities e specially when sleep is not seen. The absence of epileptiform abnormalities in a 20-60 minute EEG does not necessarily rule out a diagnosis of epilepsy or the potential for epileptic seizures to occur. Marie Ayala MD Date of interpretation: 06/02/2020Un[facility] KingwoodXR CHEST 2 VW COVID 2020-04-07 20:06:04No signs of acute cardiopulmonary disease. Disclaimer: Generally, the findings on chest imaging in COVID-19 are notspecific, and overlap with other infections, including influenza, H1N1,SARS and MERS.According to the Centers for Disease Control (CDC) and the [employer], viral testingremains the only specific method of diagnosiseven if CXR or CT findings are suggestive of COVID-19. PROCEDURE: CHEST XRAY CLINICAL INDICATION: Bronchitis, not specified as acute or chronic COMPARISON:Previous study of 03/09/2015. FINDINGS: Lungs: Clear Pleura: No pleural effusion or pneumothorax is seen. The heart is normal insize. Cardiothoracic ratio is 12.4/29.0 cm. No acute bony abnormality. [facility], Radiant Results Inft User - 04/07/2020 2:07 PM CSTPROCEDURE: CHEST XRAY CLINICAL INDICATION: Bronchitis, not specified as acute or chronic COMPARISON: Previous study of 03/09/2015.FINDINGS:Lungs: ClearPleura: No pleural effusion or pneumothorax is seen. The heart is normal insize. Cardiothoracic ratio is 12.4/29.0 cm.No acute bony abnormality.IMPRESSIONNo signs of acute cardiopulmonary disease.Disclaimer: Generally, the findings on chest imaging in COVID-19 are notspecific, and overlap with otherinfections, including influenza, H1N1,SARS and MERS.According to the Centers for Disease Control (CDC) and the [employer], viral testing remains the only specific method of diagnosiseven if CXR or CT findings are suggestive of COVID-19.[facility] 17:07:00 RUN DATE: 11/29/18 [facility] PAGE 1 RUN TIME: 1820 Specimen Inquiry RUN USER: INTERFACE --------- ---PATIENT: JELENA US LOC: U #: [id number] AGE/SX: 43/F ROOM: [facility] RE11/27/18REG DR: Nicolle Draper MD : 77 BED: A DIS: 11/28/18 STATUS: DIS Jr TLOC: SPEC #: [id number] RECD: 11/27/18 STATUS: KIM ARREDONDO #: [id number] CHRISTINA: 11/27/18- SUBM DR: Nicolle Draper MD ENTERED: 11/28/18 SP TYPE: PELVIC DEBBY OTHR DR: ORDERED: LEVEL IV/4 CODES: [id number] - UTERUS, NOS [id number] - FALLOPIAN TUBE [id number] - PELVIC GENITAL PROCEDURES: LEVEL IV (Incomplete) TISSUES: PELVIC GENITAL STRUCTURES, NOS - RIGHT PELVIC SIDEWALL ENDOMETRIOSIS, POSTERIOR CUL DE SAC ENDOMET UTERUS, NOS - UTERUS, CERVIX AND BILATERAL FALLOPIAN TUBES FALLOPIAN TUBE, NOS - RIGHT PARATUBAL CYST CLINICAL HISTORY 43 year old, pelvic pain (wpd) FINAL DIAGNOSIS Right pelvic sidewall endometriosis, excision: - peritoneal tissue with focal fibrosis Right paratubal cyst, excision: - benign paratubal cyst Posterior culdesac endometriosis, excision: - endometriosis Uterus, bilateral fallopian tubes, hysterectomy and bilateral salpingectomy: - cervix - no significant pathologic alteration - endometrium - benign, secretory phase - myometrium - no significant pathologic alteration - uterine serosa - endosalpingiosis - right and left fallopian tubes - previously ligated with focal benign endometrial replacement CPT code(s): 64061 x3,00631 [facility] 11/29/18 CONTINUED ON NEXT PAGE RUN DATE: 11/29/18 [facility] PAGE 2 RUN TIME: 1819 Specimen Inquiry RUN USER: INTERFACE SPEC #: [id number] PATIENT: ABEBAJELENA #[id number] (Continued)--- --------- GROSS DESCRIPTION ANATOMIC SOURCE OF TISSUE (per Requisition): 1. Right pelvic sidewall endometriosis 2. Right paratubal cyst 3. Posterior culdesac endometriosis 4. Uterus, cervix, bilateral fallopian tubes Each specimen is labeled with the patient's name and medical record number. Specimen #1 is designated "right pelvic sidewall endometriosis" and consists of a 1.2 x 0.6 x 0.2 cm rankin-pink, cauterized, firm tissue, entirely submitted as A1. Specimen #2 is designated "right paratubal cyst" and consists of a 4.0 x 3.0 x 0.8 cm disrupted, unilocular cystic structure with attached soft tissue. The cyst lining istrabeculated. There are no identifiable excrescences. Slurry Plant Operator sections submitted as B1. Specimen #3 is designated "posterior culdesac endometriosis" and consists of a 1.5 x 0.8 x 0.2 cm rankin-pink, cauterized, rubbery tissue, bisected, entirely submitted as C1. Specimen #4 is designated "uterus, cervix, bilateral fallopian tubes". The specimen consists of a 180 gm, 11.5 x 9.0 x 6.0 cm intact uterus with an attached cervix and previously ligated fimbriated fallopian tubes (right 6.5 cm in lengthand left 6.5 cm in length). The uterine serosa is rankin-pink and slightly nodular with a few adhesions. The 4 cm ectocervix displays a central 1 cm slit-like os. The endometrium is rankin-red, hemorrhagic,slightly nodular and lush with a thickness measuring up to 0.4 cm. The myometrium is trabeculated with a wall thickness measuring up to 3.5 cm. There is no nodule. The fallopian tubes are pink-purple and hyperemic with a few possible adhesions. The lumens are dilated and contain blood-tinged viscus fluid. Section code: D1 - cervix, D2 - anterior endomyometrium, D3 - posterior endomyometrium, D4 - additional endometrium and serosal adhesions, D5 - senior customer service representative sections of right fallopian tube, D6 - senior customer service representative sections of left fallopian tube. alex/wpd 11/28/18 @ 1207 Signed Ethel Lopez MD 11/29/18 1707 END OF REPORT HGB [id number] 05:12:00 Test Item Value Reference Range Interpretation Comments HEMOGLOBIN (test code = HGB) 11.7 g/dL 10.7-13.9 N HEMATOCRIT (test code = HCT) 34.6 % 32.1-42.1 N AG HEPATITIS B [id number] 14:24:00 Test Item Value Reference Range Interpretation Comments AG HEPATITIS B SURFACE (test code NONREACTIVE NONREACTIVE = HBSAG) IS CONSENT FORM SIGNED FOR HIV TESTING? YAB HEPATITIS C [id number] 14:24:00 Test Item Value Reference Range Interpretation Comments AB HEPATITIS C (test code = NONREACTIVE NONREACTIVE HCVAB) SIGNAL TO CUTOFF (test code = <0.02 <0.80 N CUTOFF) IS CONSENT FORM SIGNED FOR HIV TESTING? YAB HIV 1 14:24:00 Test Item Value Reference Range Interpretation Comments AB HIV 1 2 (test NONREACTIVE NONREACTIVE Done by [employer] code = [id number]) 4th Gen HIV Ag/Ab Combo Screen IS CONSENT FORM SIGNED FOR HIV TESTING? YAG HEPATITIS B [id number] 13:50:00 Test Item Value Reference Range Interpretation Comments AG HEPATITIS B SURFACE (test code NONREACTIVE NONREACTIVE = HBSAG) IS CONSENT FORM SIGNED FOR HIV TESTING? YAB HEPATITIS C [id number] 13:50:00 Test Item Value Reference Range Interpretation Comments AB HEPATITIS C (test code = HCVAB) NONREACTIVE SIGNAL TO CUTOFF (test code = CUTOFF) <0.80 IS CONSENT FORM SIGNED FOR HIV TESTING? YAB HIV 1 13:50:00 Test Item Value Reference Range Interpretation Comments AB HIV 1 2 (test code = [id number]) NONREACTIVE IS CONSENT FORM SIGNED FOR HIV TESTING? YHCG SERUM [id number] 13:22:00 Test Item Value Reference Range Interpretation Comments HCG SERUM QUAL (test code = HCGQL) NEGATIVE CBC W/AUTO [id number] 13:06:00 Test Item Value Reference Range Interpretation Comments WHITE BLOOD CELL (test code = WBC) 5.6 K/mm3 6.6-12.1 L RED BLOOD CELL (test code = RBC) 4.24 M/mm3 3.45-5.01 N HEMOGLOBIN (test code = HGB) 13.5 g/dL 10.7-13.9 N HEMATOCRIT (test code = HCT) 40.3 % 32.1-42.1 N MEAN CELL VOLUME (test code = MCV) 95 fL 84.1-94.8 H MEAN CELL HGB (test code = MCH) 31.8 pg 27-35 N MEAN CELL HGB CONCETRATION (test 33.5 gm/dL 32.2-34.1 N code = MCHC) RED CELL DISTRIBUTION WIDTH (test 12.1 % 12.4-16.5 L code = RDW) PLATELET COUNT (test code = PLT) 220 K/mm3 133-385 N IMMATURE PLATELET FRACTION (test 0.0 % 0.0-10.8 N code = IPF) MEAN PLATELET VOLUME (test code = 10.0 fl 9.1-12.7 N MPV) NEUTROPHIL % (test code = NT%) 59.2 % 56.5-79.4 N LYMPHOCYTE % (test code = LY%) 29.4 % 14.3-34.3 N MONOCYTE % (test code = MO%) 9.2 % 5.1-10.4 N EOSINOPHIL % (test code = EO%) 1.3 % 0.1-3.0 N BASOPHIL % (test code = BA%) 0.5 % 0.1-1.0 N NEUTROPHIL # (test code = NT#) 3.3 K/mm3 LYMPHOCYTE # (test code = LY#) 1.6 K/mm3 MONOCYTE # (test code = MO#) 0.5 K/mm3 EOSINOPHIL # (test code = EO#) 0.07 K/mm3 BASOPHIL # (test code = BA#) 0.0 K/mm3 RBC MORPHOLOGY REQUIRED (test code NORMAL NORMAL = RBCM) PLATELET MORPHOLOGY REQUIRED (test NORMAL NORMAL code = PLTMR) URINALYSIS [id number] 13:05:00 Test Item Value Reference Range Interpretation Comments UA COLOR (test code = COLU) YELLOW YELLOW UA APPEARANCE (test code = CLEAR CLEAR APPU) UA GLUCOSE DIPSTICK (test code NEGATIVE NEG = DGLUU) UA BILIRUBIN DIPSTICK (test NEGATIVE NEG code = BILU) UA KETONE DIPSTICK (test code NEGATIVE NEG = KETU) UA SPECIFIC GRAVITY (test code 1.014 1.001-1.035 N = SGU) UA BLOOD DIPSTICK (test code = NEG NEG JILLIAN) UA PH DIPSTICK (test code = 5.0 5-9 SAPPHIRE) UA PROTEIN DIPSTICK (test code NEGATIVE NEG = PROU) UA UROBILINIOGEN DIPSTICK NEGATIVE mg/dL NEG (test code = URO) UA NITRITE DIPSTICK (test code NEG NEG = JAMAL) UA LEUKOCYTE ESTERASE DIPSTICK NEG NEG (test code = LEUU) UA WBC (test code = WBCU) 0-2 #/hpf NONE SEEN UA RBC (test code = RBCU) 0-2 #/hpf NONE SEEN UA EPITHELIAL CELLS (test code RARE #/HPF RARE-FEW = EPIU) UA BACTERIA (test code = BACU) FEW /HPF RARE-FEW UA MUCUS (test code = MUCU) RARE NONE SEEN URINE SAMPLE: CLEAN CATCH- US TRANSVAGINAL [id number] 14:06:00 Patient Name: JELENA US Unit No: [id number] EXAMS: CPT CODE: [id number] US TRANSVAGINAL W/PELVIS 02163 Pelvic US performed November 08, 2018. COMPARISON: None. CLINICAL HISTORY: Pelvic pain. DISCUSSION: Real-time mazariegos scale sonography performed of the pelvis via the transabdominal and transvaginal approach. The uterus measures 97 x 50 x 65 mm and contains no focal myometrial abnormalities. The endometrium is homogenous and measures 4 mm in thickness. The ovaries are sonographically normal in appearance with the right measuring 33 x 19 x 17 mm and the left measuring 36 x 21 x 15 mm. Subcentimeter follicles are seen bilaterally. Normal flow seen in both ovaries. Simple appearing right periovarian cyst is seen measuring 4.6 x 2.3 x 3.3 cm. No significant free fluid in seen in the cul de sac. IMPRESSION: 1. Simple appearing 4.6 x 2.3 x 3.3 cm right periovarian cyst at 1406 Reported and signed by: Katerine Menchaca MD CC: Irma Gan MD Technologist: Scarlet Flowers RDMS Probe: [id number] Trnscrbd D/ (1406) [email or web address] Orig Print D/T: S: 11/08/2018 (1402) [facility] NAME: JELENA US Radiology Department [facility] Irma Gan [address] : 1975 AGE: 43 SEX: F [place] [address] LOC: [facility] PHONE #: [phone] EXAM DATE: 11/08/2018 STATUS: [facility] FAX #: [phone] RAD NO: Page 1 Signed Report Patient Name: JELENA US Unit No: [id number] EXAMS: CPT CODE: [id number] US TRANSVAGINAL W/PELVIS 20056 <Continued> [facility] NAME: JELENA US Radiology Department PHYS: ANNY. - Irma Gan [address] : 1975 AGE: 43 SEX: F [place] [address] LOC: ANA PHONE #: [phone] EXAM DATE: 11/08/2018 STATUS: [facility] ER FAX #: [phone] RAD NO: Page 2 Signed Report- US TRANSVAGINAL [id number] 14:06:00 Patient Name: JELENA US Unit No: [id number] EXAMS: CPT CODE: [id number] US TRANSVAGINAL W/PELVIS 11449 Pelvic US performed November 08, 2018. COMPARISON: None. CLINICAL HISTORY: Pelvic pain. DISCUSSION: Real-time mazariegos scale sonography performed of the pelvis via the transabdominal and transvaginal approach. The uterus measures 97 x 50 x 65 mm and contains no focal myometrial abnormalities. The endometrium is homogenous and measures 4 mm in thickness. The ovaries are sonographically normal in appearance with the right measuring 33 x 19 x 17 mm and the left measuring 36 x 21 x 15 mm. Subcentimeter follicles are seen bilaterally. Normal flow seen in both ovaries. Simple appearing right periovarian cyst is seen measuring 4.6 x 2.3 x 3.3 cm. No significant free fluid in seen in the cul de sac. IMPRESSION: 1. Simple appearing 4.6 x 2.3 x 3.3 cm right periovarian cyst at 1406 Reported and signed by: Katerine Menchaca MD CC: Irma Gan MD Technologist: Scarlet Flowers RDMS Probe: [id number] Trnscrbd D/ (1406) Hayley Orig Print D/T: S: 11/08/2018 (9571) [facility] NAME: JELENA US Radiology Department PHYS: Irma Asher [address] : 1975 AGE: 43 SEX: F [place], [place] [address] LOC: ANA PHONE #: [phone] EXAM DATE: 11/08/2018 STATUS: REG ER FAX #: [phone] RAD NO: Page 1 Signed Report Patient Name: JELENA US Unit No: [id number] EXAMS: CPT CODE: [id number] US TRANSVAGINAL W/PELVIS 75938 (Continued) [facility] NAME: JELENA US Radiology Department PHYS: GUTAL. - Irma Gan [address] : 1975 AGE: 43 SEX: F [place] [address] LOC: ANA PHONE #: [phone] EXAM DATE: 11/08/2018 STATUS: REG ER FAX #: [phone] RAD NO: Page 2 Signed Report- US PELVIS [id number] 14:06:00 Patient Name: JELENA US Unit No: [id number] EXAMS: CPT CODE: [id number] US PELVIS COMPLETE 93768 Pelvic US performed November 08, 2018. COMPARISON: None. CLINICAL HISTORY: Pelvic pain. DISCUSSION: Real-time mazariegos scale sonography performed of the pelvis via the transabdominal and transvaginal approach. The uterus measures 97 x 50 x 65 mm and contains no focal myometrial abnormalities. The endometriumis homogenous and measures 4 mm in thickness. The ovaries are sonographically normal in appearance with the right measuring 33 x 19 x 17 mm and the left measuring 36 x 21 x 15 mm. Subcentimeter follicles are seen bilaterally. Normal flow seen in both ovaries. Simple appearing right periovarian cyst isseen measuring 4.6 x 2.3 x 3.3 cm. No significant free fluid in seen in the cul de sac. IMPRESSION: 1. Simple appearing 4.6 x 2.3 x 3.3 cm right periovarian cyst at 1406 Reported and signed by: Katerine Menchaca MD CC: Irma Gan MD Technologist: Scarlet Flowers RDMS Probe: Trnscrbd D/ (1406) Hayley Orig Print D/T: S: 11/08/2018 (1409) [facility] NAME: JELENA US Radiology Department PHYS: POLINAAL. - Polinatrevon anandzHomeIrma [address] : 1975 AGE: 43 SEX: F [place] [address] LOC: ANA PHONE #: [phone] EXAM DATE: 11/08/2018 STATUS: [facility] ER FAX #: [phone] RAD NO: Page 1 Signed Report Patient Name: JELENA US Unit No: [id number] EXAMS: CPT CODE: [id number] US PELVIS COMPLETE 53238 <Continued> [facility] NAME: JELENA US Radiology DepartmentPHYS: Irma Asher [address] : 1975 AGE: 43 SEX: F [place], [place] [address] LOC: ANA PHONE #: [phone] EXAM DATE: 11/08/2018 STATUS: [facility] ER FAX #: [phone] RAD NO: Page 2 Signed Report- US PELVIS [id number] 14:06:00 Patient Name: JELENA US Unit No: [id number] EXAMS: CPT CODE: [id number] US PELVIS COMPLETE 02869 Pelvic US performed November 08, 2018. COMPARISON: None. CLINICAL HISTORY: Pelvic pain. DISCUSSION: Real-time mazariegos scale sonography performed of the pelvis via the transabdominal and transvaginal approach. The uterus measures 97 x 50 x 65 mm and contains no focal myometrial abnormalities. The endometrium is homogenous and measures 4 mm in thickness. The ovaries are sonographically normal in appearance with the right measuring 33 x 19 x 17 mm and the left measuring 36 x 21 x 15 mm. Subcentimeter follicles are seen bilaterally. Normal flow seen in both ovaries. Simple appearing right periovarian cyst isseen measuring 4.6 x 2.3 x 3.3 cm. No significant free fluid in seen in the cul de sac. IMPRESSION:1. Simple appearing 4.6 x 2.3 x 3.3 cm right periovarian cyst at 1406 Reported and signed by: Katerine Menchaca MD CC: Irma Gan MD Technologist: Scarlet Flowers RDMS Probe: Trnscrbd D/ (1406) tPRINCESSG Orig Print D/T: S: 11/08/2018 (1409) [facility] NAME: JELENA US Radiology Department PHYS: POLINAAL. - Home Ganondra [address] : 1975 AGE: 43 SEX: F [place], [place] [address] LOC: BillyERS PHONE #: [phone] EXAM DATE: 11/08/2018 STATUS: REG ER FAX #: [phone] RAD NO: Page 1 Signed Report Patient Name: JELENA US Unit No: [id number] EXAMS: CPT CODE: [id number] US PELVIS COMPLETE 32850 (Continued) [facility] NAME: JELENA US Radiology Department PHYS: ANNY. - Home Ganondra [address] : 1975 AGE: 43 SEX: F [place], [place] [address] LOC: BillyERS PHONE #: [phone] EXAM DATE: 11/08/2018 STATUS: REG ER FAX #: [phone] RAD NO: Page 2 Signed ReportCOMPREHENSIVE METABOLIC PANEL 2018-11-08 13:23:00 Test Item Value Reference Range Interpretation Comments SODIUM (test code = NA) 140 mEq/L 135-145 N POTASSIUM (test code = K) 3.8 mEq/L 3.5-5.0 N CHLORIDE (test code = CL) 105 mEq/L 100-115 N CARBON DIOXIDE (test code = CO2) 29 mEq/L 22-31 N ANION GAP (test code = GAP) 10.00 10-20 N GLUCOSE (test code = GLU) 83 mg/dL 65-110 N BLOOD UREA NITROGEN (test code = 10 mg/dL 7-18 N BUN) GLOMERULAR FILTRATION RATE (test 69 ml/min >60 N code = GFR) CREATININE (test code = CREAT) 0.9 mg/dL 0.5-1.0 N TOTAL PROTEIN (test code = PROT) 7.5 gm/dL 6.3-8.2 N ALBUMIN (test code = ALB) 4.3 gm/dL 3.4-4.8 N CALCIUM (test code = CA) 9.2 mg/dL 8.4-10.2 N BILIRUBIN TOTAL (test code = BILT) 0.6 mg/dL 0.2-1.0 N SGOT/AST (test code = AST) 20 units/L 15-37 N SGPT/ALT (test code = ALT) 21 units/L 12-78 N ALKALINE PHOSPHATASE TOTAL (test 78 units/L 46-116 N code = ALKP) DRUGS OF ABUSE [id number] 13:04:00 Test Item Value Reference Range Interpretation Comments UR COCAINE (test code = NEGATIVE NEGATIVE DETE CTION CUT OFF: COCAU) 150 ng/mL UR CANNABINOIDS (test NEGATIVE NEGATIVE DETECT ION CUT OFF: code = CANU) 50 ng/mL UR AMPHETAMINE (test code NEGATIVE NEGATIVE DE TECTION CUT OFF: = AMPHU) 500 ng/mL UR BARBITURATE QUAL (test NEGATIVE NEGATIVE DE TECTION CUT OFF: code = BARBQLU) 200 ng/mL UR BENZODIAZEPINE (test NEGATIVE NEGATIVE DETE CTION CUT OFF: code = BENZU) 150 ng/mL UR OPIATES QUAL (test NEGATIVE NEGATIVE DETECT ION CUT OFF: code = OPIAQLU) 100 ng/mL UR PHENCYCLIDINE (PCP) NEGATIVE NEGATIVE DETEC TION CUT OFF: (test code = PHENCU) 25 ng/m L CBC W/AUTO [id number] 13:00:00 Test Item Value Reference Range Interpretation Comments WHITE BLOOD CELL (test code = WBC) 4.7 K/mm3 6.6-12.1 L RED BLOOD CELL (test code = RBC) 4.15 M/mm3 3.45-5.01 N HEMOGLOBIN (test code = HGB) 13.2 g/dL 10.7-13.9 N HEMATOCRIT (test code = HCT) 40.2 % 32.1-42.1 N MEAN CELL VOLUME (test code = MCV) 97 fL 84.1-94.8 H MEAN CELL HGB (test code = MCH) 31.8 pg 27-35 N MEAN CELL HGB CONCETRATION (test 32.8 gm/dL 32.2-34.1 N code = MCHC) RED CELL DISTRIBUTION WIDTH (test 12.0 % 12.4-16.5 L code = RDW) PLATELET COUNT (test code = PLT) 245 K/mm3 133-385 N IMMATURE PLATELET FRACTION (test 0.0 % 0.0-10.8 N code = IPF) MEAN PLATELET VOLUME (test code = 10.0 fl 9.1-12.7 N MPV) NEUTROPHIL % (test code = NT%) 56.7 % 56.5-79.4 N LYMPHOCYTE % (test code = LY%) 33.3 % 14.3-34.3 N MONOCYTE % (test code = MO%) 7.7 % 5.1-10.4 N EOSINOPHIL % (test code = EO%) 1.5 % 0.1-3.0 N BASOPHIL % (test code = BA%) 0.6 % 0.1-1.0 N NEUTROPHIL # (test code = NT#) 2.7 K/mm3 LYMPHOCYTE # (test code = LY#) 1.6 K/mm3 MONOCYTE # (test code = MO#) 0.4 K/mm3 EOSINOPHIL # (test code = EO#) 0.07 K/mm3 BASOPHIL # (test code = BA#) 0.0 K/mm3 RBC MORPHOLOGY REQUIRED (test code NORMAL NORMAL = RBCM) PLATELET MORPHOLOGY REQUIRED (test NORMAL NORMAL code = PLTMR) UA RFLX MICR CULT IF [id number] 12:57:00 Test Item Value Reference Range Interpretation Comments UA COLOR (test code = COLU) YELLOW YELLOW UA APPEARANCE (test code = Slightly-Cloudy CLEAR APPU) UA GLUCOSE DIPSTICK (test NEGATIVE NEG code = DGLUU) UA BILIRUBIN DIPSTICK (test NEGATIVE NEG code = BILU) UA KETONE DIPSTICK (test code NEGATIVE NEG = KETU) UA SPECIFIC GRAVITY (test 1.021 1.001-1.035 N code = SGU) UA BLOOD DIPSTICK (test code NEG NEG = JILLIAN) UA PH DIPSTICK (test code = 5.0 5-9 SAPPHIRE) UA PROTEIN DIPSTICK (test NEGATIVE NEG code = PROU) UA UROBILINIOGEN DIPSTICK NEGATIVE mg/dL NEG (test code = URO) UA NITRITE DIPSTICK (test NEG NEG code = JAMAL) UA LEUKOCYTE ESTERASE NEG NEG DIPSTICK (test code = LEUU) UA WBC (test code = WBCU) 0-2 #/hpf NONE SEEN UA RBC (test code = RBCU) 0-2 #/hpf NONE SEEN UA EPITHELIAL CELLS (test RARE #/HPF RARE-FEW code = EPIU) UA MUCUS (test code = MUCU) 2+ NONE SEEN Indication for culture: Suprapubic PainUR HCG [id number] 12:57:00 Test Item Value Reference Range Interpretation Comments UR HCG QUAL (test NEGATIVE 1. Very di lute urine code = HCGQLU) specimens, as indicated by a lowspecific g ravity, may not contain rep resentative levels ofhCG. 2 . False negative result s may occur when the levels of hCGare below the sensi tivity level of the test. If is still suspec winston, a first morningurine sp ecimen should be colle cted 48 hours later and tested. Indication for culture: Suprapubic PainUA RFLX MICR CULT IF [id number] 12:54:00 Test Item Value Reference Range Interpretation Comments UA COLOR (test code = COLU) YELLOW UA APPEARANCE (test code = APPU) CLEAR UA GLUCOSE DIPSTICK (test code = NEGATIVE DGLUU) UA BILIRUBIN DIPSTICK (test code = NEGATIVE BILU) UA KETONE DIPSTICK (test code = KETU) NEGATIVE UA SPECIFIC GRAVITY (test code = SGU) 1.001-1.035 UA BLOOD DIPSTICK (test code = JILLIAN) NEGATIVE UA PH DIPSTICK (test code = SAPPHIRE) 5-9 UA PROTEIN DIPSTICK (test code = PROU) NEGATIVE UA UROBILINIOGEN DIPSTICK (test code = mg/dL NEG URO) UA NITRITE DIPSTICK (test code = JAMAL) NEGATIVE UA LEUKOCYTE ESTERASE DIPSTICK (test NEG code = LEUU) UA WBC (test code = WBCU) #/hpf NONE SEEN UA EPITHELIAL CELLS (test code = EPIU) #/HPF RARE-FEW Indication for culture: Suprapubic PainUR HCG [id number] 12:54:00 Test Item Value Reference Range Interpretation Comments UR HCG QUAL (test NEGATIVE 1. Very di lute urine code = HCGQLU) specimens, as indicated by a lowspecific g ravity, may not contain rep resentative levels ofhCG. 2 . False negative result s may occur when the levels of hCGare below the sensi tivity level of the test. If is still suspec winston, a first morningurine sp ecimen should be colle cted 48 hours later and tested. Indication for culture: Suprapubic Pain
[2021-12-07 14:46] LABS: Absolute Lymphocytes (CBC) 1.4 K/uL (0.7-4.9); Hematocrit 37.1 % (36.0-45.0); Lymphocytes % 22.8 % (15.3-44.8); MCV 91.7 fL (80-100); MPV 8.3 fL (7.6-11.3); RBC Red Blood Cell Count 4.05 M/uL (3.86-4.86)
[2021-12-07 14:50] LABS: Urine Blood Negative (Negative); Urine Glucose Negative (Negative); Urine Protein Negative (Negative); Urine Specific Gravity 1.015 (1.005-1.030); Urine pH 5.5 (5.0-7.0)
[2021-12-07] MEDS ORDERED: BISACODYL 10 MG RECTAL SUPP ONE ×2 (15:02→15:13)
[2021-12-07] MEDS ORDERED: FENTANYL CITR 100 MCG/2 ML ONE ×2 (15:02→16:42)
[2021-12-07] MEDS ORDERED: NA CHLORIDE 0.9% 1,000 ML ONE ×2 (15:03→16:16)
[2021-12-07] MEDS ORDERED: LACTULOSE 20 GM/30 ML UCUP ONE (15:03)
[2021-12-07] MEDS ORDERED: ONDANSETRON 4 MG/2 ML VIAL ONE ×3 (15:03→18:55)
[2021-12-07 15:06] LABS: Albumin 3.9 g/dL (3.4-5.0); Bilirubin Total 0.7 mg/dL (0.2-1.0); Potassium 3.7 mmol/L (3.5-5.1); Protein, Total 7.3 g/dL (6.4-8.2)
--- NOTE | 2021-12-07 16:09 | RAD REPORT ---
EXAM DESCRIPTION: CTAbdomen Pelvis W Contrast - 12/07/2021 3:45 pm CLINICAL HISTORY: Abdominal pain. Abdominal pain, acute, nonlocalized COMPARISON: No comparisonsCT ABD PELVIS W CONTRAST dated 09/21/2012 TECHNIQUE: Biphasic CT imaging of the abdomen and pelvis was performed with 100 ml non-ionic IV cont rast. All CT scans are performed using dose optimization technique as appropriate and may include automated exposure control or mA/KV adjustment according to patient size. FINDINGS: The lung bases are clear.Postsurgical changes about the stomach. The liver, spleen, pancreas, adrenal glands and kidneys are within normal limits. Perirectal fluid collection is noted containing small pockets of air measuring 27 x 21 mm. This may r epresent a perirectal abscess. No bowel obstruction or free air. The appendix is normal. No evidence of significant lymphadenopathy. No suspicious bony findings. IMPRESSION: 21 mm midline perirectal fluid collection anterior to the anus may represent a perirecta l abscess.
[2021-12-07] MEDS ORDERED: metroNIDAZOLE 500 MG TABLET ONE (16:42)
[2021-12-07] MEDS ORDERED: Levofloxacin 750mg IV 750 MG/150 ML BAG IV ONE (16:43)
--- NOTE | 2021-12-07 17:05 | ER ---
Nurse's Notes [facility] [place] Name: Caridad Conn Age: 46 yrs Sex: Female : 1975 Arrival Date: 12/07/2021 Time: 13:04 Bed 18 Private MD: Diagnosis: Anorectal abscess-PERIRECTAL ABSCESS 27 MM X 21 MM ;Lower abdominal pain, unspecified Presentation: 12/07 13:45 Chief complaint: Patient states: I went to the ER in at one yesterday afternoon with bm7 severe rectal and stomach pain. They did an XRAY and said that I was impacted. I followed up with Dr. Alvarez today and they said I have a large external hemorrhoid and sent me here. Coronavirus screen: At this time, the client does not indicate any symptoms associated with coronavirus-19. Ebola Screen: No symptoms or risks identified at this time. Initial Sepsis Screen: Does the patient meet any 2 criteria? No. Patient's initial sepsis screen is negative. Does the patient have a suspected source of infection? No. Patient's initial sepsis screen is negative. Risk Assessment: Do you want to hurt yourself or someone else? Patient reports no desire to harm self or others. Onset of symptoms was December 07, 2021. 13:45 Method Of Arrival: Ambulatory 7 13:45 Acuity: NARESH 3 bm7 13:49 Note pt states that she had gastric sleeve surgery on Nov 08 at the end of triage. bm7 Triage Assessment: 13:49 General: Appears in no apparent distress. uncomfortable, obese, Behavior is calm, bm7 cooperative, appropriate for age. Pain: Complains of pain in right lower quadrant and left lower quadrant. EENT: No deficits noted. No signs and/or symptoms were reported regarding the EENT system. Neuro: No deficits noted. Cardiovascular: No deficits noted. Respiratory: No deficits noted. GI: Abdomen is round Reports lower abdominal pain, cramping, nausea. : No deficits noted. No signs and/or symptoms were reported regarding the genitourinary system. Derm: No deficits noted. No signs and/or symptoms reported regarding the dermatologic system. Musculoskeletal: No deficits noted. No signs and/or symptoms reported regarding the musculoskeletal system. [employer]PER[employer]OR: 13:49 LMP N/A - Hysterectomy bm7 Historical: - Allergies: 13:47 No Known Allergies; bm7 - Home Meds: 13:47 aspirin 81 mg Oral tab daily [Active]; levothyroxine 13 mcg cap 1 cap once daily bm7 [Active]; Linzess 290 mcg oral cap 1 cap once daily [Active]; - PMHx: 13:47 Hyperthyroidism; Heart valve disorder; bm7 - PSHx: 13:47 gastric sleeeve; hyst; bm7 - Immunization history:: Adult Immunizations up to date, Client reports receiving the 2nd dose of the Covid vaccine, Client reports receiving the 1st dose of the Covid vaccine. - Social history:: Smoking status: Patient denies any tobacco usage or history of. - Family history:: not pertinent. Screenin:06 Abuse screen: Denies threats or abuse. Denies injuries from another. Nutritional mb8 screening: No deficits noted. Tuberculosis screening: No symptoms or risk factors identified. Fall Risk None identified. Assessment: 14:06 Pain: Complains of pain in abdomen. GI: Abdomen is round Abdomen is tender to palpation.mb8 16:45 Reassessment: Patient and/or family updated on plan of care and expected duration. Pain mb8 level reassessed. Patient is alert, oriented x 3, equal unlabored respirations, skin warm/dry/pink. Patient reports getting more stool out each bowel movement, still reports pain. Patient states feeling better. Vital Signs: 13:49 BP 120 / 85; Pulse 81; Resp 16; Temp 97.5(O); Pulse Ox 98% on R/A; Weight 83.91 kg (R); 7 Height 5 ft. 6 in. (167.64 cm); Pain 10/10; 16:45 BP 103 / 71; Pulse 86; Resp 22; Pulse Ox 99% ; Pain 8/10; mb8 18:52 BP 116 / 80; Pulse 88; Resp 20; Pulse Ox 97% ; Pain 10/10; mb8 13:49 Body Mass Index 29.86 (83.91 kg, 167.64 cm) 7 ED Course: 13:04 Patient arrived in ED. mr 13:47 Triage completed. bm7 13:49 Arm band placed on right wrist. bm7 13:56 Curt Perla MD is Attending Physician. [facility] 14:06 Bigg Crenshaw RN is Primary Nurse. mb8 14:07 Patient has correct armband on for positive identification. Placed in gown. Bed in low mb8 position. Call light in reach. Side rails up X2. 14:07 No provider procedures requiring assistance completed. mb8 14:42 Inserted saline lock: 20 gauge in left antecubital area, using aseptic technique. Blood jd3 collected. 15:46 CT Abd/Pelvis - PO Contrast Only In Process Unspecified. EDMS 17:03 Prince Young MD is Hospitalizing Provider. chrystal 20:26 SARS RAPID Sent. ja4 21:17 Report given to michelle bronson. nannette Administered Medications: 15:06 Drug: NS 0.9% 1000 ml Route: IV; Rate: 1 bolus; Site: left antecubital; mb8 15:06 Drug: Dulcolax (bisacodyl) Suppository 10 mg Route: UT; mb8 15:06 Drug: Lactulose 60 grams Volume: 45 ml; Route: PO; mb8 15:06 Drug: fentaNYL (PF) 25 mcg Route: IVP; Site: left antecubital; mb8 16:42 Follow up: Response: No adverse reaction; Pain is decreased mb8 15:06 Drug: Zofran (Ondansetron) 4 mg Route: IVP; Site: left antecubital; mb8 16:42 Follow up: Response: No adverse reaction; Nausea is decreased mb8 16:23 Drug: NS 0.9% 1000 ml Route: IV; Rate: 1 bolus; Site: right antecubital; mb8 17:00 Follow up: Response: No adverse reaction; IV Status: Completed infusion mb8 16:41 Drug: levofloxacin 750 mg Volume: 150 ml; Route: IVPB; Infused Over: 90 mins; Site: mb8 left antecubital; 18:00 Follow up: Response: No adverse reaction; IV Status: Completed infusion mb8 16:41 Drug: Flagyl (metroNIDAZOLE) 250 mg Route: PO; mb8 18:52 Follow up: Response: No adverse reaction mb8 16:41 Drug: fentaNYL (PF) 50 mcg Route: IVP; Site: left antecubital; mb8 18:52 Follow up: Response: No adverse reaction mb8 16:41 Drug: Zofran (Ondansetron) 4 mg Route: IVP; Site: left antecubital; mb8 18:51 Follow up: Response: No adverse reaction mb8 18:51 Drug: Dilaudid (HYDROmorphone) 1 mg Route: IVP; Site: left antecubital; mb8 18:51 Drug: Zofran (Ondansetron) 4 mg Route: IVP; Site: left antecubital; mb8 Medication: 14:06 VIS not applicable for this client. mb8 Outcome: 17:05 Decision to Hospitalize by Provider. chrystal 22:21 Patient left the ED. nannette Signatures: Dispatcher [employer] EDMS Curt Perla MD MD cha Rivera, Mary mr Quevedo, LAZ Márquez RN [id number] Susu Robbins RN RN bm7 Garry Bunn RN RN ja4 Bigg Crenshaw RN RN mb8
--- NOTE | 2021-12-07 17:05 | EDPHYS ---
Physician Documentation [facility] Name: Caridad Conn Age: 46 yrs Sex: Female : 1975 Arrival Date: 12/07/2021 Time: 13:04 Bed 18 Private MD: PHILIPPE Physician Curt Perla HPI: 12/07 14:29 This 46 yrs old Female presents to ER via Ambulatory with complaints of chrystal Hemorrhoids, Constipation. 14:29 The patient presents with abdominal pain in the lower abdomen, abdominal distention in chrystal the upper abdomen, in the lower abdomen. Onset: The symptoms/episode began/occurred 3 day(s) ago. The symptoms do not radiate. Associated signs and symptoms: Pertinent positives: constipation. The symptoms are described as constant, crampy. Modifying factors: The symptoms are alleviated by remaining still. Severity of pain: At its worst the pain was moderate in the emergency department the pain is unchanged. The patient has experienced similar episodes in the past, multiple times. CONSULTANT RN: 13:49 LMP N/A - Hysterectomy bm7 Historical: - Allergies: 13:47 No Known Allergies; bm7 - Home Meds: 13:47 aspirin 81 mg Oral tab daily [Active]; levothyroxine 13 mcg cap 1 cap once daily bm7 [Active]; Linzess 290 mcg oral cap 1 cap once daily [Active]; - PMHx: 13:47 Hyperthyroidism; Heart valve disorder; bm7 - PSHx: 13:47 gastric sleeeve; hyst; bm7 - Immunization history:: Adult Immunizations up to date, Client reports receiving the 2nd dose of the Covid vaccine, Client reports receiving the 1st dose of the Covid vaccine. - Social history:: Smoking status: Patient denies any tobacco usage or history of. - Family history:: not pertinent. ROS: 14:29 Constitutional: Negative for fever, chills, and weight loss, Eyes: Negative for injury, chrystal pain, redness, and discharge, ENT: Negative for injury, pain, and discharge, Neck: Negative for injury, pain, and swelling, Cardiovascular: Negative for chest pain, palpitations, and edema, Respiratory: Negative for shortness of breath, cough, wheezing, and pleuritic chest pain, Abdomen/GI: Negative for abdominal pain, nausea, vomiting, diarrhea, and constipation, Back: Negative for injury and pain, : Negative for injury, bleeding, discharge, and swelling, MS/Extremity: Negative for injury and deformity, Skin: Negative for injury, rash, and discoloration, Neuro: Negative for headache, weakness, numbness, tingling, and seizure, Psych: Negative for depression, anxiety, suicide ideation, homicidal ideation, and hallucinations, Allergy/Immunology: Negative for hives, rash, and allergies, Endocrine: Negative for neck swelling, polydipsia, polyuria, polyphagia, and marked weight changes, Hematologic/Lymphatic: Negative for swollen nodes, abnormal bleeding, and unusual bruising. 14:29 Abdomen/GI: Positive for constipation, rectal pain. Exam: 14:29 Constitutional: This is a well developed, well nourished patient who is awake, alert, chrystal and in no acute distress. Head/Face: Normocephalic, atraumatic. Eyes: Pupils equal round and reactive to light, extra-ocular motions intact. Lids and lashes normal. Conjunctiva and sclera are non-icteric and not injected. Cornea within normal limits. Periorbital areas with no swelling, redness, or edema. ENT: Nares patent. No nasal discharge, no septal abnormalities noted. Tympanic membranes are normal and external auditory canals are clear. Oropharynx with no redness, swelling, or masses, exudates, or evidence of obstruction, uvula midline. Mucous membranes moist. Neck: Trachea midline, no thyromegaly or masses palpated, and no cervical lymphadenopathy. Supple, full range of motion without nuchal rigidity, or vertebral point tenderness. No Meningismus. Chest/axilla: Normal chest wall appearance and motion. Nontender with no deformity. No lesions are appreciated. Cardiovascular: Regular rate and rhythm with a normal S1 and S2. No gallops, murmurs, or rubs. Normal PMI, no JVD. No pulse deficits. Respiratory: Lungs have equal breath sounds bilaterally, clear to auscultation and percussion. No rales, rhonchi or wheezes noted. No increased work of breathing, no retractions or nasal flaring. Back: No spinal tenderness. No costovertebral tenderness. Full range of motion. Female : Normal external genitalia. Skin: Warm, dry with normal turgor. Normal color with no rashes, no lesions, and no evidence of cellulitis. MS/ Extremity: Pulses equal, no cyanosis. Neurovascular intact. Full, normal range of motion. Neuro: Awake and alert, GCS 15, oriented to person, place, time, and situation. Cranial nerves II-XII grossly intact. Motor strength 5/5 in all extremities. Sensory grossly intact. Cerebellar exam normal. Normal gait. Psych: Awake, alert, with orientation to person, place and time. Behavior, mood, and affect are within normal limits. 14:29 Abdomen/GI: Inspection: abdomen appears normal, Bowel sounds: normal, Palpation: abdomen is soft and non-tender, Rectal exam: Stool: guaiac negative, hemorrhoid(s), are not appreciated, mass, is not appreciated, swelling, is not appreciated, tenderness, that is mild, fecal impaction, is not appreciated, Liver: is firm, Hernia: not appreciated. Vital Signs: 13:49 BP 120 / 85; Pulse 81; Resp 16; Temp 97.5(O); Pulse Ox 98% on R/A; Weight 83.91 kg (R); bm7 Height 5 ft. 6 in. (167.64 cm); Pain 10/10; 16:45 BP 103 / 71; Pulse 86; Resp 22; Pulse Ox 99% ; Pain 8/10; mb8 18:52 BP 116 / 80; Pulse 88; Resp 20; Pulse Ox 97% ; Pain 10/10; mb8 13:49 Body Mass Index 29.86 (83.91 kg, 167.64 cm) bm7 MDM: 13:56 Patient medically screened. [facility] 14:32 Differential diagnosis: non-specific abd pain, urinary tract infection. Data reviewed: [facility] vital signs, nurses notes, lab test result(s), radiologic studies, CT scan. 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 Counseling: I had a detailed discussion with the patient and/or guardian regarding: the historical points, exam findings, and any diagnostic results supporting the discharge/admit diagnosis, lab results, radiology results. 12/07 14:25 Order name: CBC with Diff; Complete Time: 16:00 [facility] 12/07 14:25 Order name: Comprehensive Metabolic Panel; Complete Time: 16:00 [facility] 12/07 14:25 Order name: Urine Culture [facility] 12/07 14:50 Order name: Urine Dipstick-Ancillary; Complete Time: 16:00 [facility] 12/07 20:13 Order name: SARS RAPID 12/07 20:55 Order name: SARS-COV-2 Antigen Rapid [facility] 12/07 14:25 Order name: CT Abd/Pelvis - PO Contrast Only; Complete Time: 16:23 [facility] 12/07 14:25 Order name: Urine Dipstick-Ancillary (obtain specimen); Complete Time: 15:21 [facility] 12/07 14:25 Order name: Urine Test (obtain specimen); Complete Time: 15:21 [facility] Administered Medications: 15:06 Drug: NS 0.9% 1000 ml Route: IV; Rate: 1 bolus; Site: left antecubital; mb8 15:06 Drug: Dulcolax (bisacodyl) Suppository 10 mg Route: AZ; mb8 15:06 Drug: Lactulose 60 grams Volume: 45 ml; Route: PO; mb8 15:06 Drug: fentaNYL (PF) 25 mcg Route: IVP; Site: left antecubital; mb8 16:42 Follow up: Response: No adverse reaction; Pain is decreased mb8 15:06 Drug: Zofran (Ondansetron) 4 mg Route: IVP; Site: left antecubital; mb8 16:42 Follow up: Response: No adverse reaction; Nausea is decreased mb8 16:23 Drug: NS 0.9% 1000 ml Route: IV; Rate: 1 bolus; Site: right antecubital; mb8 17:00 Follow up: Response: No adverse reaction; IV Status: Completed infusion mb8 16:41 Drug: levofloxacin 750 mg Volume: 150 ml; Route: IVPB; Infused Over: 90 mins; Site: mb8 left antecubital; 18:00 Follow up: Response: No adverse reaction; IV Status: Completed infusion mb8 16:41 Drug: Flagyl (metroNIDAZOLE) 250 mg Route: PO; mb8 18:52 Follow up: Response: No adverse reaction mb8 16:41 Drug: fentaNYL (PF) 50 mcg Route: IVP; Site: left antecubital; mb8 18:52 Follow up: Response: No adverse reaction mb8 16:41 Drug: Zofran (Ondansetron) 4 mg Route: IVP; Site: left antecubital; mb8 18:51 Follow up: Response: No adverse reaction mb8 18:51 Drug: Dilaudid (HYDROmorphone) 1 mg Route: IVP; Site: left antecubital; mb8 18:51 Drug: Zofran (Ondansetron) 4 mg Route: IVP; Site: left antecubital; mb8 Disposition Summary: 12/07/21 17:05 Hospitalization Ordered Hospitalization Status: Inpatient Admission chrystal Provider: Prince chrystal Young Condition: Stable chrystal Problem: new chrystal Symptoms: have improved chrystal Bed/Room Type: Standard [facility] Location: Telemetry/MedSurg (Inpatient)(12/07/21 20:12) Room Assignment: [facility](12/07/21 20:56) Diagnosis - Anorectal abscess - PERIRECTAL ABSCESS 27 MM X 21 MM chrystal - Lower abdominal pain, unspecified chrystal Forms: - Medication Reconciliation Form chrystal - SBAR form chrystal Signatures: Dispatcher [employer] EDJulia Morales RN RN kl Webb, Martha RN Constance Barker RN RN dw Anderson, Corey, MD MD cha McCarthy, Brittany RN LAZ bm7 Bigg Crenshaw RN RN mb8 Corrections: (The following items were deleted from the chart) 18:48 17:05 [facility] 20:12 17:05 Telemetry/MedSurg (Inpatient) [facility] 20:12 18:[address] [place] [address] 20:56 20:12 [facility]
[2021-12-07] MEDS ORDERED: HYDROMORPHONE HCL 1 MG/ML INJ ONE (18:55)
--- NOTE | 2021-12-07 20:03 | P.HP ---
Certification for Inpatient Patient admitted to: Inpatient With expected LOS: >2 Midnights Patient will require the following post-hospital care: None Practitioner: I am a practitioner with admitting privileges, knowledge of patient current condition, hospital course, and medical plan of care. Services: Services provided to patient in accordance with Admission requirements found in Title 42 Section 412.3 of the Code of Federal Regulations Patient History Date of Service: 12/07/21 Reason for admission: Perirectal abscess History of Present Illness: 46-year-old female with history of thyroid disease, previous gastric sleeve presents emergency department with rectal pain. She reports increasing pain over the course of last 24 hours. She was evaluated in the emergency department her labs are unremarkable CT of the abdomen pelvis with IV contrast was performed which revealed a 21 mm midline perirectal fluid collection anterior to the anus which may represent a perirectal abscess. Patient was evaluated by general surgery in the emergency department who plans for operative management of suspected pararectal abscess. Patient was given IV antibiotics in the emergency department limit for further evaluation and management. 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 - Social History Smoking Status: Never smoker Alcohol use: No CD- Drugs: No Caffeine use: Yes Place of Residence: Home Review of Systems Gastrointestinal: Nausea, Abdominal Pain, Other (rectal pain) Physical Examination - Physical Exam General: Alert, In no apparent distress, Oriented x3 HEENT: Atraumatic, PERRLA, Mucous membr. moist/pink, EOMI, Sclerae nonicteric Neck: Supple, 2+ carotid pulse no bruit, No LAD, Without JVD or thyroid abnormality Respiratory: Clear to auscultation bilaterally, Normal air movement Cardiovascular: Regular rate/rhythm, Normal S1 S2 Capillary refill: <2 Seconds Gastrointestinal: Normal bowel sounds, No tenderness Musculoskeletal: No tenderness Integumentary: No rashes Neurological: Normal speech, Normal strength at 5/5 x4 extr, Normal tone, Normal affect - Studies Laboratory Data (last 24 hrs) 12/07/21 14:38: Sodium 139, Potassium 3.7, BUN 11, Creatinine 0.67, Glucose 85, Total Bilirubin 0.7, AST 12 L, ALT 20, Alkaline Phosphatase 62 12/07/21 14:38: WBC 6.00, Hgb 12.6, Hct 37.1, Plt Count 223 Assessment and Plan - Plan Assessment: Perirectal abscess Thyroid disorder Plan: Perirectal abscess: IV antibiotics, n.p.o. after midnight, SCDs in place, [facility] surgery has seen patient plan for operative management tomorrow. As needed pain medications and antiemetics. Thyroid disorder: Continue home medications when appropriate. DVT PPX: SCD Code status: Full Discharge Plan: Home Plan to discharge in: 48 Hours - Advance Directives Does patient have a Living Will: No Does patient have a Durable POA for Healthcare: No - Code Status/Comfort Care Code Status Assessed: Yes (Full code) Critical Care: No Time Spent Managing Pts Care (In Minutes): 55
[2021-12-07 20:54] LABS: SARS-CoV-2 Antigen Rapid Res Negative (Negative)
[2021-12-07] MEDS ORDERED: MORPHINE 2 MG/ML SYR IV PRN (22:29)
[2021-12-07] MEDS ORDERED: ONDANSETRON 4 MG/2 ML VIAL IV PRN (22:29)
[2021-12-07] MEDS: D5 0.45 NS 1,000 ML IV SCH (22:59)
[2021-12-08 01:20] VITALS: BMI 30.2
[2021-12-08] MEDS: METRONIDAZOLE 500mg IVPB 500 MG/100 ML BAG IV SCH ×3 (02:25→17:06)
--- NOTE | 2021-12-08 03:25 | CON ---
Date of Consultation: 12/07/2021 Brief History Of Present Illness: The patient is a 46-year-old female with a history of thyroid dise ase, obesity status post sleeve gastrectomy one month ago, who presents with perirectal pain beginnin g approximately the day before. She states that she does have a history of hemorrhoids she is aware of, but has not had episodes before similar to this in the past. She does not note any fever, chills , nausea, vomiting, change in bowel or bladder habits. No bleeding per rectum, except for a very sli ght amount of bright red blood with wiping on the toilet paper; otherwise, no significant blood loss. She has had no sick contacts. No recent travel. No new food exposures. Past Medical History: Significant for thyroid disease, obesity. Past Surgical History: Includes a sleeve gastrectomy, tubal ligation, hysterectomy, tonsillectomy. 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 She lives with her . She denies smoking, alcohol , recreational drug use Review of Systems: Ten-point review of systems other than HPI, denies. Physical Examination: General: At the time of my examination, she is awake, alert, and oriented. Psychiatric: She is appropriate, conversive. HEENT: Normocephalic. Sclerae icteric. Mucous membranes moist. Oropharynx clear. Neck: Supple without no JVD. Chest: Normal expansion and excursion. Cardiovascular: Regular rhythm. Pulmonary: Clear to auscultation bilaterally. Abdomen: Soft, nontender. : Focused examination of the rectal area, she has a tender area in the perineum in the space betwe en the vagina and the anus consistent with a perirectal abscess. There is no drainage. There is min imal fluctuance to this area. She does have an external thrombosed hemorrhoid/skin tag evident to th e anus. I was unable to do a complete rectal exam secondary to tenderness. SKIN: Her skin was warm and dry otherwise. Laboratory Data: Reveals a white blood count 6.0, hemoglobin 12.6, hematocrit of 37.1, platelet coun t was 223, neutrophils 67%. Her sodium was 139, potassium 3.7, chloride 106, carbon dioxide 24, BUN 11, creatinine 0.67, glucose is 85, total bilirubin 0.73. AST 12, ALT 20, alkaline phosphatase of 62 . Her UA showed 4+ ketones, otherwise negative. COVID is currently pending. She had a CT scan of the abdomen and pelvis, which was officially read a s 21 mm midline perirectal fluid collection anterior to the anus, may represent perirectal abscess. Assessment And Plan: This is a 46-year-old female who comes in with signs and symptoms of a perirect al abscess. 1.IV fluid hydration. 2.Antibiotic coverage. 3.I have explained the risks, benefits, and alternatives of exam under anesthesia, drainage of perir ectal abscess, and indicated procedures including, but not limited to bleeding, infection, damage to surrounding tissues, need for further operation and procedures, injury to anus, incontinence issues, and the need for ongoing wound care. The patient agrees to proceed as indicated. ADALBERTO/GERRI Voice ID: [id number] Report ID: [id number]
[2021-12-08] MEDS ORDERED: MORPHINE 2 MG/ML SYR IV PRN (04:01)
[2021-12-08 04:20] LABS: Absolute Lymphocytes (CBC) 1.1 K/uL (0.7-4.9); Hematocrit 31.3 % (36.0-45.0); Lymphocytes % 29.5 % (15.3-44.8); MCV 91.9 fL (80-100); MPV 8.5 fL (7.6-11.3); RBC Red Blood Cell Count 3.41 M/uL (3.86-4.86)
[2021-12-08 04:53] LABS: Albumin 3.1 g/dL (3.4-5.0); Bilirubin Total 0.5 mg/dL (0.2-1.0); Potassium 3.9 mmol/L (3.5-5.1)
[2021-12-08] MEDS ORDERED: NA CHLORIDE 0.9% 500 ML IV ONE (05:19)
[2021-12-08] MEDS ORDERED: Ringers Lactate 1,000 ML IV ONE (07:09)
[2021-12-08] MEDS ORDERED: BUPIVACAINE 0.25% PF 30 ML VIAL ONE (07:43)
[2021-12-08] MEDS ORDERED: BUPIVACAINE 0.25% PF 30 ML VIAL IJ ONE ×2 (07:45)
[2021-12-08] MEDS ORDERED: propofoL 200 MG/20 ML VIAL IV ONE (07:49)
[2021-12-08] MEDS ORDERED: FENTANYL CITR 100 MCG/2 ML ONE (07:50)
[2021-12-08] MEDS ORDERED: KETOROLAC 30 MG/ML INJ ONE (07:50)
[2021-12-08] MEDS ORDERED: dexAMETHasone 10 MG/ML VIAL ONE (07:50)
[2021-12-08] MEDS ORDERED: MIDAZOLAM HCL 2 MG/2 ML INJ ONE (07:50)
[2021-12-08] MEDS ORDERED: ONDANSETRON 4 MG/2 ML VIAL ONE (07:52)
[2021-12-08] MEDS ORDERED: SODIUM HYPOCHLORITE 0.25% 473 ML ONE (07:56)
[2021-12-08] MEDS ORDERED: METHYLENE BLUE 0.5% 10 ML AMP ONE (08:29)
[2021-12-08] MEDS ORDERED: LIDOCAINE JELLY 2%- 5 ML TUBE ONE (08:47)
--- NOTE | 2021-12-08 08:52 | P.OP ---
Preoperative diagnosis: Perirectal Abscess Postoperative diagnosis: Perirectal Abscess Primary procedure: Exam under anesthesia Secondary procedure: drainage of perirectal abscess Anesthesia: GETA + Local Estimated blood loss: <5cc Specimen: none Findings: small abscess no fistula Complications: None Transferred to: Recovery Room Condition: Good
[2021-12-08] MEDS: HYDROCODONE/APAP 5/325 MG TAB PO PRN ×2 (09:49→20:29)
[2021-12-08] MEDS ORDERED: HYDROMORPHONE HCL 1 MG/ML INJ IV PRN (12:43)
--- NOTE | 2021-12-08 12:43 | P.PN ---
Subjective Date of Service: 12/08/21 Chief Complaint: Perirectal abscess Subjective: Other (Patient was seen by me after I&D of perirectal abscess. She was in a lot pain during my evaluation.) Physical Examination - Vital Signs Temperature: 97.1 F Blood Pressure: 100/55 Pulse: 60 Respirations: 18 Pulse Ox (%): 96 - Physical Exam General: Cooperative, Mild distress, Obese HEENT: Atraumatic, Normocephalic Respiratory: Clear to auscultation bilaterally, Normal air movement Cardiovascular: No edema, Normal pulses, Regular rate/rhythm Neurological: Normal speech, Cranial nerves 3-12 intact Rectal: Deferred - Studies Laboratory Data (last 24 hrs) 12/07/21 14:38: Sodium 139, Potassium 3.7, BUN 11, Creatinine 0.67, Glucose 85, Total Bilirubin 0.7, AST 12 L, ALT 20, Alkaline Phosphatase 62 12/07/21 14:38: WBC 6.00, Hgb 12.6, Hct 37.1, Plt Count 223 Assessment And Plan - Current Problems (Diagnosis) (1) Perirectal abscess Current Visit: Yes Status: Acute (2) Obesity (BMI 30.0-34.9) Current Visit: Yes Status: Acute - Plan Assessment Patient is a 46-year-old female with past medical history of hypothyroidism, morbid obesity status post gastric sleeve. She was admitted after she presented with rectal pain. CT abdomen and pelvis revealed a 2.1 cm perirectal fluid concerning for perirectal abscess. She underwent exam under anesthesia and drainage of perirectal abscess by general surgery. She is being covered with antibiotics. Perirectal abscess Morbid obesity status post gastric sleeve Obesity Hypothyroidism Plan: Postop day #1 status post IND of perirectal abscess Continue empiric coverage with antibiotics. She is on levofloxacin and Flagyl Optimize pain control Postop wound check tomorrow by general surgery Patient can be discharged if cleared by surgery
[2021-12-08 13:30] VITALS: O2SAT 97
[2021-12-08] MEDS: D5 0.45 NS 1,000 ML IV SCH (15:06)
[2021-12-08] MEDS ORDERED: Levofloxacin500mg IV 500 MG/100 ML BAG IV SCH (18:00)
--- NOTE | 2021-12-08 21:45 | OP ---
Date of Procedure: 12/08/2021 Surgeon: Chiki Villalobos MD, Preoperative Diagnosis: Perirectal abscess. Postoperative Diagnosis: Perirectal abscess. Procedures Performed: 1.Exam under anesthesia. 2.Incision and drainage of perirectal abscess. Anesthesia: General endotracheal plus local with 0.25% Marcaine. Estimated Blood Loss: Less than 5 cc. Specimen: None. Findings: 1.Small abscesses and no fistula. 2.External and internal anal hemorrhoids. Disposition: The patient transferred to recovery room in good condition. Procedure In Detail: After informed consent was obtained, the patient was brought to the operating r oom, prepped and draped in the usual sterile fashion. After adequate anesthesia was achieved, I plac ed an anoscope into the patient's anus and looked for any obvious fistulous tracts and palpated the a nal mucosa for any evidence of fistulous connections to an abscess which is in the perineal area. I did not palpate any obvious tracts at this point. I then injected local anesthetic at the subcutaneo us position in the perineal area where an area of fluctuance was appreciated. I also injected methyl joleen blue into the abscess cavity at this point. I then inspected the anus once again using the anosc ope and found no evidence of methylene blue coming through this area and no evidence of any fistulous connections. I then made a small linear 0.5 cm incision in the perineum and dissected down until I encountered a fluid collection, which is very small in size and only had mostly serous with a very sm all amount of abscess material. This was irrigated and then packed with 0.25 cm plain packing soaked in Dakin's solution and a sterile dressing placed over the top. A piece of Gelfoam was then placed into the anus with lidocaine as a tampon and the procedure was completed. The patient tolerated the procedure without evidence of complication and transferred to the PACU in good condition. All counts were correct at the end of the case. ADALBERTO/GERRI Voice ID: [id number] Report ID: [id number]
[2021-12-09] MEDS: METRONIDAZOLE 500mg IVPB 500 MG/100 ML BAG IV SCH ×2 (01:00→08:21)
[2021-12-09] MEDS: HYDROCODONE/APAP 5/325 MG TAB PO PRN (05:46)
[2021-12-09 06:27] LABS: Absolute Lymphocytes (CBC) 0.9 K/uL (0.7-4.9); Hematocrit 32.4 % (36.0-45.0); Lymphocytes % 13.7 % (15.3-44.8); MCV 91.3 fL (80-100); MPV 9.1 fL (7.6-11.3); RBC Red Blood Cell Count 3.55 M/uL (3.86-4.86)
[2021-12-09 06:52] LABS: Albumin 3.1 g/dL (3.4-5.0); Bilirubin Total 0.4 mg/dL (0.2-1.0); Potassium 3.7 mmol/L (3.5-5.1); Protein, Total 6.2 g/dL (6.4-8.2)
[2021-12-09 08:33] VITALS: BP 96/55; TEMP 97.4
[2021-12-09] MEDS ORDERED: DOCUSATE NA 100 MG CAP PO SCH (09:00)
[2021-12-09] MEDS ORDERED: ASPIRIN EC 81 MG TAB PO SCH (09:00)
--- NOTE | 2021-12-09 09:40 | P.DS ---
Admission Date: 12/07/21 Discharge Date: 12/09/21 Disposition: ROUTINE DISCHARGE Discharge Condition: GOOD Reason for Admission: Perirectal abscess - Problems (1) Perirectal abscess Current Visit: Yes Status: Acute (2) Obesity (BMI 30.0-34.9) Current Visit: Yes Status: Acute Hospital Course: Was admitted with perirectal abscess. She was placed on empiric antibiotics and underwent I&D. A postop wound check was satisfactory. No signs of sepsis during this admission. She can be discharged today with a 7-day course of antibiotics. Vital Signs/Physical Exam: Temp Pulse Resp BP Pulse Ox 97.4 F 50 18 96/55 L 97 12/09/21 08:00 12/09/21 08:00 12/09/21 08:00 12/09/21 08:00 12/09/21 08:00 General: Alert, In no apparent distress, Cooperative HEENT: Atraumatic, Normocephalic Respiratory: Clear to auscultation bilaterally, Normal air movement Cardiovascular: No edema, Normal pulses, Regular rate/rhythm, Normal S1 S2 Musculoskeletal: No clubbing, No swelling, No contractures, No erythema Neurological: Normal speech, Sensation intact, Cranial nerves 3-12 intact Rectal: Deferred Laboratory Data at Discharge: WBC 6.90 K/uL (4.3-10.9) 12/09/21 05:28 Hgb 11.2 g/dL (12.0-15.0) L 12/09/21 05:28 Hct 32.4 % (36.0-45.0) L 12/09/21 05:28 Plt Count 211 K/uL (152-406) 12/09/21 05:28 Sodium 141 mmol/L (136-145) 12/09/21 05:28 Potassium 3.7 mmol/L (3.5-5.1) 12/09/21 05:28 BUN 5 mg/dL (7-18) L 12/09/21 05:28 Creatinine 0.71 mg/dL (0.55-1.3) 12/09/21 05:28 Glucose 153 mg/dL (74-106) H 12/09/21 05:28 Total Bilirubin 0.4 mg/dL (0.2-1.0) 12/09/21 05:28 AST 24 U/L (15-37) 12/09/21 05:28 ALT 29 U/L (12-78) 12/09/21 05:28 Alkaline Phosphatase 54 U/L (45-117) 12/09/21 05:28 Home Medications: RX: Aspirin [Aspirin EC 81 MG] 81 mg PO DAILY 12/08/21 RX: levoFLOXacin [Levaquin*] 750 mg PO DAILY #7 tab 12/09/21 RX: metroNIDAZOLE [Metronidazole] 500 mg PO TID #21 12/09/21 New Medications: RX: levoFLOXacin [Levaquin*] 750 mg PO DAILY #7 tab RX: metroNIDAZOLE [Metronidazole] 500 mg PO TID #21 Followup: Chiki Villalobos MD [ACTIVE - CAN ADMIT] - KEVIN BROWN [Primary Care Provider] -
== END 2021-12-09 11:42 | disposition home or self-care (01) | DRG 395 ==
LOC: ER 13:02 → ERHOLD 19:08 → 4TH 21:21
PROVIDERS: ADMIT Internal Medicine; ATTEND Internal Medicine
PROC: 0D9P7ZX Drainage of Rectum, Via Natural or Artificial Opening, Diagnostic (ICD-10-PCS; principal; 2021-12-08 08:15)
DX: K61.1 Rectal abscess (principal); Z68.29 Body mass index [BMI] 29.0-29.9, adult; E03.9 Hypothyroidism, unspecified; E66.01 Morbid (severe) obesity due to excess calories; K64.4 Residual hemorrhoidal skin tags; K64.8 Other hemorrhoids; Z98.84 Bariatric surgery status; Z20.822 Contact with and (suspected) exposure to COVID-19
CPT/HCPCS: 36415; 74177; 80053; 81003; 85025; 87086; 87088; 87811; 96365; 96375; 99284; J1100; J1170; J2250; J2270; J2405; J2704; J3010; J7030; J7040; J7120; J7799; Q9967; Q9968

== ENCOUNTER 2022-07-27 09:23 | Emergency (ER) | payer OTHER, BC ==
--- OUTSIDE RECORDS SUMMARY | 2022-07-27 09:30 | XMS REPORT | Continuity of Care Document ---
:1975 Author Organization [facility] t Address [address] [place] [address] [place] [id number] Care Team Providers Name Role Phone HELEN CAUSEY Primary Care Physician Unavailable ROMI LANE Attending Clinician Unavailable Romi Lane DO Attending Clinician CATHRYN GARSIA Attending Clinician Unavailable Cathryn Malloy Attending Clinician Doctor Unassigned, [place] Attending Clinician Unavailable Radiology Attending Clinician Unavailable RADIOLOGY Attending Clinician Unavailable Magdalena Blackmon NP Attending Clinician Delilah Gresham MD Attending Clinician MELBA ARROYO Attending Clinician Unavailable ROMI LANE Admitting Clinician Unavailable YONNY HUERTA Admitting Clinician Unavailable Mp SMALL, Delilah Boykin Admitting Clinician MELBA ARROYO Admitting Clinician Unavailable Payers Payer Name Policy Type Policy Number Effective Date Expiration Date S ource OPEN ACCESS [employer]ETNA [id number] 2012 00:00:00 [employer] E[employer] AETNA HMO [id number] 2014 00:00[facility] [facility] [facility] [id number] 2018 00:00:00 OUT OF STATE Problems Condition Condition Condition Status Onset Resolution Last Treating Co mments Source Name Details Category Date Date Treatment Clinician Date Stroke-lik Stroke-lik Disease Active U nivers e symptoms e symptoms 3- it y of 00:00: [place] [facility] Obesity Obesity Disease Active Univers (BMI (BMI 3- ity of 30-39.9) 30-39.9) 00:00: [place] [address] Medical Branch Migraine Migraine Disease Active Unive rs syndrome syndrome 06-02 ity of 00:00: [place] [address] Medical Branch Allergies, Adverse Reactions, Alerts Allergy Allergy Status Severity Reaction(s) Onset Inactive Treating Comm ents Source Name Type Date Date Clinician No Known DA Active U [facility] All[facility]ie 8-15 [facility] [address] [place] [address] NO KNOWN Drug Active [facility] ALLERGIE Class ity of S [facility] Social History Social Habit Start Date Stop Date Quantity Comments Source Exposure to 2021-11-26 2021-12-06 Not sure [facility] SARS-CoV-2 (event) 00:00:00 15:28:00 Medica l Branch Sex Assigned At [birth year] [facility] 00:00:00 00:00:00 Medical Branch Smoking Status Start Date Stop Date Source Tobacco smoking consumption [facility] Branch Medications Ordered Filled Start Stop Current Ordering Indication Dosage Frequency Signature Comments Components Source Medication Medication Date Date Medication? Clinician (SIG) Name Name ketorolac 10mg 10 mg, Unive rs (TORADOL) 12-06 Oral, ity of tablet 10 23:00: 22:18 ONCE, 1 [place] mg 00 :00 dose, On Medical Mon Branch 9/12/22 at 1800, JOE polyethylen Yes [id number] 17g Take 17 g Univers e glycol 9-12 by mouth ity of 3350 17 00:00: in the [place] gram/dose 00 morning. Medica l powder Branch hydrocortis Yes [id number] 1{appli Insert 1 Univers castillo-pramovi 12-06 cator} Applicator ity of ne 00:00: into [place] (PROCTOFOAM 00 rectum in Med ical HC) [...] 2-02 Oral, ity of e 14:00: Q12H, [place] (AUGMENTIN) 00 First dose Me dical 875-125 [...] 02/24/21 at 1800, Routine amoxicillin 2020-03 Yes [id number] 1{tbl} Take 1 Univers -clavulanat 2-01 tablet [...] Indication s: acute pain amoxicillin 2020-03 Yes [id number] 1{tbl} Take 1 Univers -clavulanat 2-01 tablet [...] Indication s: acute pain amoxicillin 2020-03 Yes [id number] 1{tbl} Take 1 Univers -clavulanat 2-01 tablet [...] Indication s: acute pain amoxicillin 2020-03 Yes [id number] 1{tbl} Take 1 Univers -clavulanat 2-01 tablet [...] [place] dose [place] 00 on [facility] 06/02/20 at Branch 2100, Until Discontinu ed, Routine aspirin 81 0 Yes [id number] 81mg Take 1 Univers mg chewable 3-10 tablet by ity of tablet 00:00: mouth [place] 00 daily. [facility] aspirin 81 2020-0 Yes [id number] 81mg Take 1 Univers mg chewable 3-10 tablet by ity of tablet 00:00: mouth [place] 00 daily. [facility] aspirin 81 2020-0 Yes [id number] 81mg Take 1 Univers mg chewable 3-10 tablet by ity of tablet 00:00: mouth [place] 00 daily. [facility] aspirin 81 2020-0 Yes [id number] 81mg Take 1 Univers mg chewable 3-10 tablet by ity of tablet 00:00: mouth [place] 00 daily. [facility] aspirin 81 2020-0 Yes [id number] 81mg Take 1 Univers mg chewable 3-10 tablet by ity of tablet 00:00: mouth [place] 00 daily. [facility] aspirin 81 2020-0 Yes [id number] 81mg Take 1 Univers mg chewable 3-10 tablet by ity of tablet 00:00: mouth [place] 00 daily. [facility] aspirin 81 2020-0 Yes [id number] 81mg Take 1 Univers mg chewable 3-10 tablet by ity of tablet 00:00: mouth [place] 00 daily. [facility] paroxetine Yes 10mg Take 10 mg U nivers 10 mg 3-09 by mouth ity of tablet 21:20: daily. [address] paroxetine 0 Yes 10mg Take 10 mg U nivers 10 mg 3-09 by mouth ity of tablet 21:20: daily. [address] paroxetine 0 Yes 10mg Take 10 mg U nivers 10 mg 3-09 by mouth ity of tablet 21:20: daily. [address] perflutren 2020- No [id number] 2mL 2 mL, IV Univers lipid 06-02-09 Push, ity of microsphere 21:00: 16:28 ONCE, 1 [place] 00 :00 dose, [facility] (DEFINITY) 06/02/20 at [facility] ch injection 2 1500, mL Routine Saline Yes [id number] 6mL 6 mL, Unive rs Bubble 3 Injection, ity of Study 20:47: SEE-INSTRU [place] CTIONS, Medical Starting Branch [facility] 06/02/20 at 1447, Until Discontinu ed, Routine paroxetine Yes 10mg Take 10 mg U nivers 10 mg 06-02 by mouth ity of tablet 15:20: daily. [address] paroxetine Yes 10mg Take 10 mg U nivers 10 mg - by mouth ity of tablet 15:20: daily. [address] paroxetine Yes 10mg Take 10 mg U nivers 10 mg - by mouth ity of tablet 15:20: daily. [address] paroxetine Yes 10mg Take 10 mg U nivers 10 mg 06-02 by mouth ity of tablet 15:20: daily. [address] Sliding Yes Subcutaneo Univ ers Scale 3-09 us, TID ity of Insulin - 14:00: MEALS+HS, [place] as Lispro 00 First dose Medical (HumaLOG) + on [facility] 06/02/20 at Testing 0800, Until Discontinu ed, Routine famotidine Yes 20mg 20 mg, Unive rs (PEPCID AC) 06-02 Oral, BID, it y of tablet 20 14:00: First dose [place] mg 00 on [facility] 06/02/20 at Branch 0800, Until Discontinu ed, Routine heparin Yes 5000U 5,000 Univers (porcine) 06-02 Units, ity of injection 14:00: Subcutaneo [place] 5,000 Units 00 us, Q12H, Med ical First dose Branch on [facility] 06/02/20 at 0800, Until Discontinu ed, Routine aspirin 2020- No 325mg 325 mg, Unive rs E.C. 06-02 Oral, ONCE ity of (ECOTRIN) 07:45: 10:15 NOW, 1 [place] tablet 325 00 :00 dose, [facility] Medi alexa mg 06/02/20 at Branch 0145, STAT LORazepam 0 2020- No 1mg 1 mg, Slow U nivers (ATIVAN) 06-02 IV Push, ity of injection 1 04:45: 04:00 ONCE, 1 [place] mg 00 :00 dose, Mon Medical 06/01/20 at Branch 2245, STAT iohexol 2020-2020- No [id number] 100mL 100 mL, U nivers (OMNIPAQUE 06-02 Intravenou it y of 350 03:00: 02:49 s, ONCE, 1 [place] BULK-100 00 :00 dose, Mon Medica l mL) 06/01/20 at Branch injection 2100, 100 mL Routine paroxetine 2017-0 Yes 10mg Take 10 mg U nivers 10 mg 9-04 by mouth ity of tablet 23:20: daily. [address] Branch naproxen 2018-0 Yes 500mg Take [...] 22:20:00 107 mm[Hg] Univer sity of pressure [facility] Branch Diastolic blood 2021-12-06 22:20:00 78 mm[Hg] Unive rsity of pressure [place] [facility] Heart rate 2021-12-06 22:20:00 105 /min Universi ty of [place] [facility] Respiratory rate 2021-12-06 22:20:00 17 /min Univ ersity of [place] [facility] Oxygen saturation in 2021-12-06 22:20:00 98 /min University of Arterial blood by [facility] Pulse oximetry Branch Body temperature 2021-12-06 20:29:00 36.56 Radha [facility] ersity of [place] [facility] Body height 2021-12-06 20:29:00 167.6 cm Universi ty of [place] [facility] Body weight 2021-12-06 20:29:00 83.915 kg Universi ty of [place] [facility] BMI 2021-12-06 20:29:00 29.86 kg/m2 Universi ty of [place] [facility] Systolic blood 2021-06-09 22:45:00 120 mm[Hg] Univer sity of [facility] Branch Diastolic blood 2021-06-09 22:45:00 86 mm[Hg] Unive rsity of [facility] Branch Heart rate 2021-06-09 22:45:00 67 /min Universi ty of [place] [facility] Respiratory rate 2021-06-09 22:45:00 18 /min [facility] ersity of [place] [facility] Oxygen saturation in 2021-06-09 22:45:00 100 /min University of Arterial blood by [facility] Pulse oximetry Branch Body temperature 2021-06-09 18:42:00 37.11 Radha [facility] ersity of [place] [facility] Body height 2021-06-09 18:42:00 167.6 cm Universi ty of [place] [facility] Body weight 2021-06-09 18:42:00 90.719 kg Universi ty of [place] [facility] BMI 2021-06-09 18:42:00 32.28 kg/m2 Universi ty of [place] [facility] Systolic blood 2021-02-25 02:00:00 127 mm[Hg] Univer sity of pressure [place] [facility] Diastolic blood 2021-02-25 02:00:00 85 mm[Hg] Unive rsity of pressure [place] [facility] Heart rate 2021-02-25 02:00:00 104 /min Universi ty of [place] [facility] [place] Body temperature 2021-02-25 02:00:00 37.44 Radha Univ ersity of [facility] Respiratory rate 2021-02-25 02:00:00 21 /min Univ ersity of [place] [facility] Oxygen saturation in 2021-02-25 02:00:00 94 /min University of Arterial blood by [place] [employer] [facility] Pulse oximetry Branch Body height 2021-02-24 21:34:00 165.1 cm Universi ty of [place] [facility] [place] Body weight 2021-02-24 21:34:00 92.987 kg Universi ty of [facility] BMI 2021-02-24 21:34:00 34.11 kg/m2 Universi ty of [place] [facility] Systolic blood 2020-06-02 17:44:00 125 mm[Hg] Univer sity of pressure [place] [facility] Diastolic blood 2020-06-02 17:44:00 73 mm[Hg] Unive rsity of pressure [facility] Heart rate 2020-06-02 17:44:00 69 /min Universi ty of [place] [facility] [place] Body temperature 2020-06-02 17:44:00 36.94 Radha Univ ersity of [place] [facility] Oxygen saturation in 2020-06-02 17:44:00 97 /min University of Arterial blood by [place] [employer] [facility] Pulse oximetry Branch Respiratory rate 2020-06-02 13:30:00 15 /min Univ ersity of [place] [facility] Body height 2020-06-02 07:07:00 167.6 cm Universi ty of [place] [facility] Body weight 2020-06-02 07:07:00 92.08 kg Universi ty of [facility] Branch BMI 2020-06-02 07:07:00 32.77 kg/m2 Universi ty of [place] [facility] [place] Procedures Procedure Date / Time Performing Source Performed Clinician VILLA FARLEY 2021-12-[address] [facility] 21:01:00 Medical Branch CONSENT/REFUSAL FOR DIAGNOSIS 2021-12-06 Doctor Unassigned, [facility] AND TREATMENT 20:03:29 [place] [facility] [place] POCT TEST 2021-06-09 Singer [facility] 19:19:00 Medical Branch XR CHEST 1 VW 2021-06-09 Singer [facility] [place] 19:15:07 Medical Branch LIPASE 2021-06-09 Singer [facility] [place] 18:57:00 Medical Branch TROPONIN I 2021-06-09 Singer [facility] [place] 18:57:00 Medical Branch COMP. METABOLIC PANEL ([id number]) 2021-06-09 Singer [facility] 18:57:00 Medical Branch CBC WITH DIFF 2021-06-09 Singer [facility] [place] 18:57:00 Medical Branch PROTHROMBIN TIME / INR 2021-06-09 [facility] 18:57:00 Medical Branch ACTIVATED PARTIAL THRMPLAS 2021-06-09 Singer [facility] ELENITA 18:57:00 Medical Branch HB ECG ROUTINE & RHYTHM STRIP 2021-06-09 Yonny Huerta [facility] 18:49:53 Medical Branch NOTICE OF PRIVACY PRACTICES 2021-06-09 Doctor Unasspavel, [facility] 18:40:08 [place] [facility] [place] CONSENT/REFUSAL FOR DIAGNOSIS 2021-06-09 Doctor Unassigned, [facility] AND TREATMENT 18:38:49 [place] [facility] [place] BASIC METABOLIC PANEL (NA, K, 2021-02-25 Cathryn Garsia [facility] CL, CO2, GLUCOSE, BUN, 00:25:00 Medical B ran CREATININE, CA) CBC WITH DIFF 2021-02-25 Cathryn Garsia [facility] 00:25:00 Medical Branch D-DIMER 2021-02-25 Cathryn Garsia [facility] 00:25:00 Medical Branch XR CHEST 2 VW 2021-02-24 Singer [facility] [place] 21:56:15 Medical Branch COVID-19 (ID NOW RAPID 2021-02-24 Singer [facility] TESTING) 21:40:00 Medical Branch CONSENT/REFUSAL FOR DIAGNOSIS 2021-02-24 Doctor Unassigned, [facility] AND TREATMENT 21:21:56 [place] [facility] ASSIGNMENT OF BENEFITS 2020-08-11 Doctor Unassigned, [facility] 21:10:39 [place] [facility] POCT GLUCOSE (AUTOMATED) 2020-06-02 Delilah Gresham [facility] 19:11:00 [facility] TRANSTHORACIC ECHO (TTE) 2020-06-02 [facility] COMPLETE W/ CONTRAST 16:35:00 [facility] POCT GLUCOSE (AUTOMATED) 2020-06-02 Delilah Gresham [facility] 15:45:00 [facility] MR STROKE BRAIN WO CONTRAST 2020-06-02 [facility] 11:33:13 [facility] VITAMIN B12, LEVEL 2020-06-02 [facility] 10:22:00 [facility] TEST, SERUM 2020-06-02 [facility] 10:22:00 [facility] FREE T4 2020-06-02 [facility] 10:22:00 [facility] LIPID PANEL ([id number])(TOTAL 2020-06-02 [facility] CHOLESTEROL, TRIGLYCERIDES, 10:22:00 [facility] HDL) ANTI-NUCLEAR ANTIBODY SCREEN 2020-06-02 [facility] 10:22:00 [facility] HOMOCYSTEINE 2020-06-02 [facility] 10:22:00 [facility] FACTOR 5 LEIDEN 2020-06-02 [facility] 10:22:00 [facility] COVID-19 (ID NOW RAPID 2020-06-02 Magdalena Blackmon [facility] TESTING) 03:31:00 [facility] CT STROKE ANGIOGRAM HEAD 2020-06-02 Magdalena Blackmon [facility] 02:59:05 [facility] CT STROKE ANGIOGRAM NECK 2020-06-02 Magdalena Blackmon [facility] 02:59:05 [facility] CT STROKE HEAD WO CONTRAST 2020-06-02 Magdalena Blackmon [facility] 02:41:00 [facility] Branch POCT TEST 2020-06-02 Magdalena Blackmon [facility] 02:26:00 [facility] POCT GLUCOSE (AUTOMATED) 2020-06-02 Magdalena Blackmon [facility] 02:21:00 Medical Branch LIPASE 2020-06-02 Magdalena Blackmon [facility] [place]as 01:40:00 [facility] TROPONIN I 2020-06-02 Magdalena Blackmon [facility] ex 01:40:00 [facility] Branch THYROID STIMULATING HORMONE 2020-06-02 Magdalena Blackmon [facility] 01:40:00 [facility] HEPATIC FUNCTION PANEL 2020-06-02 Magdalena Blackmon [facility] ([id number]) (ALB,T.PRO,BILI 01:40:00 [facility] Branch T,BU/BC,ALT,AST,ALK PHOS) BASIC METABOLIC PANEL (NA, K, 2020-06-02 Magdalena Blackmon [facility] CL, CO2, GLUCOSE, BUN, 01:40:00 [facility] [facility] CREATININE, [place]) CBC WITH DIFF 2020-06-02 Magdalena Blackmon [facility] ex 01:40:00 [facility] GLYCOSYLATED HEMOGLOBIN (A1C) 2020-06-02 [facility] 01:40:00 [facility] PROTHROMBIN TIME / INR 2020-06-02 Magdalena Blackmon [facility] 01:40:00 [facility] Branch D-DIMER 2020-06-02 Magdalena Blackmon [facility] ex 01:40:00 [facility] Branch ACTIVATED PARTIAL THRMPLAS 2020-06-02 Magdalena Blackmon [facility] ELENITA 01:40:00 [facility] URINALYSIS 2020-06-02 [facility] 01:40:00 [facility] N-TERMINAL PRO-BNP 2020-06-02 Magdalena Blackmon [facility] 01:40:00 [facility] ADC / LCC - DRUG SCREEN 2020-06-02 Magdalena Blackmon [facility] TRIAGE 01:40:00 [facility] HB ECG ROUTINE & RHYTHM STRIP 2020-06-02 Magdalena Blackmon [facility] 01:34:59 Medical Branch CONSENT/REFUSAL FOR DIAGNOSIS 2020-06-02 Doctor Unassigned, [facility] AND TREATMENT 01:17:58 [place] [facility] ELECTROENCEPHALOGRAM 2020-06-02 Shayan Cespedes, [facility] [facility] AGREEMENTS AUTHORIZATIONS AND 2020-06-01 Doctor Unassigned, [facility] IRREVOCABLE ASSIGNMENTS (FORM 06:01:00 [place] [facility] 2000) HOSPITAL ADMISSION 2020-06-01 Doctor Unassigned, [facility] 06:01:00 [place] [facility] Branch XR CHEST 2 VW COVID 2020-04-07 Requisition, Paper [facility] 20:02:22 Medical Branch Encounters Start End Encounter Admission Attending Care Care Encounter Source Date/Time Date/Time Type Type Clinicians Facility Department ID 2021-07-15 Outpatient [facility] [id number] [place] 09:44:36 [id number] [facility] 2021-01-24 Emergency [facility] [id number] Univers [facility] 2021-12-06 2021-12-06 Emergency [facility] [id number] Univers 15:32:00 17:39:00 ROMI [facility] 2021-12-06 2021-12-06 Emergency [facility] [id number] Univers 15:32:00 17:39:00 Romi GOODWIN [id number] i ty of [place] [id number] [facility] [id number] [address] 2021-06-09 2021-06-09 Emergency [facility] [id number] Univers 13:46:00 18:36:00 CATHRYN ity [facility] 2021-06-09 2021-06-09 Emergency [facility] [id number] Univers 13:46:00 18:36:00 Cathryn Eber [place] [id number] i ty of [place] [id number] [facility] [id number] [address] 2021-06-09 2021-06-09 Orders Doctor LAWRENCE [id number] Univers 00:00:00 00:00:00 Only Unassigned, FEDER[place] [id number] ity of [place] [facility] 4.2.7.2.686 Carlos as [id number] [facility] 009 [place] 2021-02-24 2021-02-24 Emergency [facility] [id number] Univers 15:46:00 20:45:00 CATHRYN ity [facility] 2021-02-24 2021-02-24 Emergency [facility] [id number] Univers 15:46:00 20:45:00 Cathryn S [place] [id number] i ty of [place] 4.2.7.2.686 [facility] [id number] [facility] 084 Branch 2020-08-11 2020-08-11 Hospital Radiology [facility] [id number] Univers 16:12:09 23:59:00 Encounter Fransisca [id number] ity [facility] 4.2.7.2.686 [facility] [id number] [facility] 807 Branch 2020-08-11 2020-08-11 Outpatient R RADIOLOGY [facility] [id number] Univers 00:00:00 00:00:00 ity [facility] 2020-08-11 2020-08-11 Orders Doctor BRAVO [id number] Univers 00:00:00 00:00:00 Only Unassigned, [place] [id number] ity of [place] [facility] 4.2.7.2.686 Carlos as [id number] [facility] 009 Branch 2020-06-01 2020-06-02 [facility] Magdalena Blackmon 1.2.840. [id number] Univers 19:27:00 15:00:00 Encounter Delilah Gresham [id number] ity of [facility] 42.7.2.686 [place] as [id number] [facility] 098 Branch 2020-05-05 2020-05-05 Emergency X [facility] ERT [id number] Univers 12:19:00 12:19:00 [facility] 2020-04-07 2020-04-07 Hospital Radiology [facility] [id number] Univers 13:50:35 23:59:00 Encounter Fransisca [id number] ity [place] 4.2.7.2.686 [facility] [id number] [facility] 807 Branch 2020-04-07 2020-04-07 Outpatient R RADIOLOGY [facility] [id number] Univers 00:00:00 00:00:00 [facility] 2020-01-23 2020-01-24 Outpatient E [facility] [id number] [facility] 10:33:00 12:44:00 MELBA Results Test Description Test Time Test Comments Results Result Comments Source TROPONIN I 2021-06-09 19:59:02 Test Item Value Reference Range Interpretation Comme nts TROPONIN I (test code = 0.001 ng/mL See_Comment [Au tomated message] The [id number]) system which ge nerated this result tra [...] biotin. Lab Interpretation Normal (test code = 37736-7) [facility] (31729)2021-06-09 19:48:18 Test Item Value Reference Range Interpretation Comments NA (test code = 138 mmol/L 135-145 9078810754) K (test code = 4.1 mmol/L 3.5-5.0 1937568287) CL (test code = 102 mmol/L 98-108 6515490831) CO2 TOTAL (test code 27 mmol/L 23-31 = 2735692742) AGAP (test code = 2-16 0396775946) BUN (test code = 10 mg/dL 7-23 2565493231) GLUCOSE (test code = 83 mg/dL 70-110 7057042888) CREATININE (test code 0.71 mg/dL 0.50-1.04 = 9882562297) TOTAL BILI (test code 0.5 mg/dL 0.1-1.1 = 5791746274) CALCIUM (test code = 9.1 mg/dL 8.6-10.6 9990660477) T PROTEIN (test code 7.4 g/dL 6.3-8.2 = 7126686131) ALBUMIN (test code = 4.6 g/dL 3.5-5.0 5008739644) ALK PHOS (test code = 78 U/L 34-122 0525429142) ALTv (test code = 14 U/L 5-35 2-6) AST(SGOT) (test code 23 U/L 13-40 = 6913497479) eGFR (test code = mL/min/1.73m2 6912094847) MARIAM (test code = MARIAM) Association of [...] or urine or abnormalities in imaging tests). [facility], [id number] 19:47:42 Test Item Value Reference Range Interpretation Comments LIPASE (test code = 7905115623) 83 U/L 0-220 Lab Interpretation (test code = Normal 18729-8) [facility] 19:45:01 Test Item Value Reference Range Interpretation Comments APTT Patient (test See_Comment [Automat ed code = 3173-2) message] The system which generated this result transmitted reference range : 23 - 38 Seconds . The reference range was not used to interpr et this result as normal/abnormal . MARIAM (test code = MARIAM) The [facility] patient population mean normal value for aPTT is 30 seconds. Lab Interpretation Normal (test code = 18179-9) [facility]anoPROT[facility] / [id number] 19:42:59 Test Item Value Reference Range Interpretation Comments PROTIME PATIENT (test See_Comment [Auto mated message] code = 5964-2) The system ich generated this result transmitted ref erence range: 12.0 - 1 4.7 Seconds. The re ference range was not u sed to interpret this result as normal/abnor mal. INR (test code = 6301-6) Nor mal INR <1.1; Warfarin Therap eutic range 2.0 to 3. 0 or 2.5 to 3.5, dep ending upon the indica tions. Lab Interpretation (test Normal code = 03117-5) [facility] WITH [id number] 19:35:16 Test Item Value Reference Range Interpretation Comments WBC (test code = See_Comment [Automated message] 6690-2) The system ic h generated this result transmitted ref erence range: 4.30 - 1 1.10 10*3/?L. The re ference range was not u sed to interpret this result as normal/abnor mal. RBC (test code = See_Comment [Automated message] 789-8) The system [employer] generated this result transmitted ref erence range: [...] RDW-SD (test code 44.7 fL 39.0-49.9 = 33997-8) RDW-CV (test code 12.8 % 12.0-15.5 = 788-0) PLT (test code = See_Comment [Automated message] 777-3) The system [employer] generated this result transmitted ref erence range: 166 - 35 8 10*3/?L. The re ference range was not u sed to interpret this result as normal/abnor mal. MPV (test code = 9.7 fL 9.5-12.9 40508-8) NRBC/100 WBC (test See_Comment [Automat ed message] code = 0651542095) The syste m which generated this result transmitted ref erence range: 0.0 - 10 .0 /100 WBCs. The refer ence range was not u sed to interpret this result as normal/abnor mal. NRBC x10^3 (test <0.01 See_Comment [Automated message] code = 4228786493) The syste m which generated this result transmitted ref erence range: 10*3/?L. The reference range was not used to interpr et this result as normal/abnormal . GRAN MAT (NEUT) % 57.6 % (test code = 770-8) IMM GRAN % (test 0.20 % code = 1493950896) LYMPH % (test code 32.6 % = 736-9) MONO % (test code 7.7 % = 5905-5) EOS % (test code = 1.3 % 713-8) BASO % (test code 0.6 % = 706-2) GRAN MAT 3.08 10*3/uL 1.88-7.09 x10^3(ANC) (test code = 2325291590) IMM GRAN x10^3 <0.03 0.00-0.06 (test code = 3177194254) LYMPH x10^3 (test 1.74 10*3/uL 1.32-3.29 code = 731-0) MONO x10^3 (test 0.41 10*3/uL 0.33-0.92 code = 742-7) EOS x10^3 (test 0.07 10*3/uL 0.03-0.39 code = 711-2) BASO x10^3 (test 0.03 10*3/uL 0.01-0.07 code = 704-7) [facility] [id number] 19:19:00 Test Item Value Reference Range Interpretation Comments POCT PREG (test code = 1605) Negative On board controls acceptable with Postive C Line (test code = 3574) POCT PREG LOT # (test code = 3575) [id number] POCT PREG TEST DATE (test 05/24/2022 code = 3576) Lab Interpretation (test code = Normal 26685-0) [facility]D-[id number] 01:07:30 Test Item Value Reference Interpretation Comments Range D-DIMER (test code = See_Comment [Autom ated 4617774974) message] The system which generated this result [...] diagnosis. Lab Interpretation Normal (test code = 45066-8) [facility] METABOLIC PANEL (NA, K, CL, CO2, GLUCOSE, BUN, CREATININE, CA)2021-02-25 01:06:48 Test Item Value Reference Range Interpretation Comments NA (test code = 131 mmol/L 135-145 L 4010712530) K (test code = 4.3 mmol/L 3.5-5.0 3647602781) CL (test code = 100 mmol/L 98-108 9239950538) CO2 TOTAL (test code = 22 mmol/L 23-31 L 1548197168) AGAP (test code = 2-16 0909668326) BUN (test code = 9 mg/dL 7-23 5758944610) GLUCOSE (test code = 95 mg/dL 70-110 1016579759) CREATININE (test code = 0.78 mg/dL 0.50-1.04 0825394504) CALCIUM (test code = 9.3 mg/dL 8.6-10.6 9967679406) eGFR (test code = mL/min/1.73m2 9624836894) MARIAM (test code = MARIAM) Association of [...] tests). Lab Interpretation Abnormal (test code = 79757-9) [facility] WITH [id number] 00:59:51 Test Item Value Reference Range Interpretation Comments WBC (test code = See_Comment [Automated 9297-2) message] The sy stem which generated this result transmitted reference range : 4.30 - 11.10 10*3/?L. The reference range was not used to interpret this result as normal/abnormal . RBC (test code = See_Comment [Automated 449-8) message] The sy stem which generated this [...] RDW-SD (test code = 42.3 fL 39.0-49.9 66753-4) RDW-CV (test code = 12.3 % 12.0-15.5 788-0) PLT (test code = See_Comment [Automated 777-3) message] The sy stem which generated this result transmitted reference range : 166 - 358 10*3/ ?L. The reference r belkis was not used to interpret this result as normal/abnormal . MPV (test code = 9.6 fL 9.5-12.9 84961-4) NRBC/100 WBC (test See_Comment [Automat ed code = 3098450716) message] The system which generated this result transmitted reference range : 0.0 - 10.0 /100 WBCs. The refer ence range was not u sed to interpret th is result as normal/abnormal . NRBC x10^3 (test code <0.01 See_Comment [Auto mated = 2064967503) message] The s ystem which generated this result transmitted reference range : 10*3/?L. The reference range was not used to interpret this result as normal/abnormal . GRAN MAT (NEUT) % 76.7 % (test code = 770-8) IMM GRAN % (test code 0.50 % = 2331308105) LYMPH % (test code = 12.0 % 736-9) MONO % (test code = 8.9 % 5905-5) EOS % (test code = 1.4 % 713-8) BASO % (test code = 0.5 % 706-2) GRAN MAT x10^3(ANC) 5.00 10*3/uL 1.88-7.09 (test code = 8009830707) IMM GRAN x10^3 (test 0.03 10*3/uL 0.00-0.06 code = 0972165168) LYMPH x10^3 (test code 0.78 10*3/uL 1.32-3.29 L = 731-0) MONO x10^3 (test code 0.58 10*3/uL 0.33-0.92 = 742-7) EOS x10^3 (test code = 0.09 10*3/uL 0.03-0.39 711-2) BASO x10^3 (test code 0.03 10*3/uL 0.01-0.07 = 704-7) Lab Interpretation Abnormal (test code = 91287-8) [facility] CAD [id number] 14:36:56Name: , Jelena FRITZ: 1975 Sex: F - SCR MAMM BILATERAL PATY CAD DIGITALBILATERAL DIGITAL SCREENING MAMMOGRAM 3D/2D WITH CAD: 09/16/2020LINICAL: Asymptomatic. Digital breast tomosynthesis was performed in addition to routine CC and MLO views. Current mammographic images were evaluated by [employer] CAD (computer-aided detection) software. Comparison is made to exams dated 06/28/2016 mammogram - [facility], 07/30/2013 mammogram, and 07/02/2012 mammogram - [facility]. There are scattered fibroglandular tissues in both breasts. There are benign calcifications in the right breast. No suspicious mass, architectural distortion, malignant type calcification, or lymph node abnormality detected. Breast architecture is stable compared to prior exams.IMPRESSION: BENIGNThere is no mammographic evidence of malignancy. Resume annual screening mammography in one year. Jennifer Park M.D. scg/penrad:09/21/2020 14:36:56 Development Director: Jessica Gomez MM, [facility] [employer] Mammographyletter sent: BIRADS 1-2 Normal Mammogram BI-RADS: 2 BenignAnti-Nuclear Antibody [id number] 19:38:26 Test Item Value Reference Range Interpretation Comments RADHA (test code = Positive Negative A 3412521312) MARIAM (test code = MARIAM) Negative - [...] separately. Lab Interpretation (test Abnormal code = 55227-4) [facility]2020-06-02 19:12:26 Test Item Value Reference Range Interpretation Comments POCT GLU (test code = 1487403159) 89 mg/dL 70-110 Lab Interpretation (test code = Normal 37267-5) [facility]2020-06-02 15:51:17 Test Item Value Reference Range Interpretation Comments POCT GLU (test code = 1068227725) 183 mg/dL 70-110 H Lab Interpretation (test code = Abnormal 80855-6) [facility]FA[facility] 5 [id number] 15:43:58 Test Item Value Reference Range Interpretation Comments FACTOR 5 LEIDEN Normal Normal (test code = 0205160627) MARIAM (test code = Phenotype Characteristics: MARIAM) [...] the Factor 5 Leiden mutation is c.1601G>A (p.Yjk591Aez). Methodology: Polymerase chain reaction and fluorescence monitoring. Limitations: Rare Factor V mutations (O4586F, P9061K, and C5505R) and any additional SNPs in the probe binding region may interfere with the target detection and yield an INVALID result. The performance of this assay has not been evaluated with samples from pediatric patients. Counseling and informed consent are recommended for genetic testing. References: OMIM: 126325 https://ghr.nlm.nih.gov/co ndition/kmvyap-b-mwxntp- rombophilia [facility]anoMR STROKE BRAIN WO [id number] 13:56:06 No acute intracranial abnormality. EXAMINATION: MR [...] Left sphenoid sinus mucosal thickening.IMPRESSIONNo acute intracranial abnormality.[facility]anoGLYCOSYLATED HEMOGLOBIN (A1C)2020-06-02 12:28:07 Test Item Value Reference Range Interpretation Comments HGB A1C (test code = 5.5 % 4.0-6.0 4548-4) MARIAM (test code = MARIAM) %A1C (NGSP) Interpretation (ADA)4.8-5.6 ? ? Normal or (Non-Diabetic Range)5.7-6.4 ? ? Increased Risk (Pre-Diabetic)>6.5 ?Diabetes Indicated Lab Interpretation Normal (test code = 37037-6) [facility]anoVITAMIN B12, [id number] 12:12:36 Test Item Value Reference Range Interpretation Comments VIT B12 (test code = 349 pg/mL 240-930 4129351873) MARIAM (test code = MARIAM) Biotin has been reported to cause a positive bias, interpret results relative to patient's use of biotin. Lab Interpretation (test Normal code = 33144-0) [facility]anoFREE [id number] 11:40:12 Test Item Value Reference Range Interpretation Comments FREE T4 (test code = See_Comment [Autom ated message] 7552647515) The system [employer] generated this result transmitted ref erence range: 0.78 - 2 .20 ng/dL:. The ref erence range was not u sed to interpret this result as normal/abnor mal. Lab Interpretation (test Normal code = 07913-6) [facility]anoHOMOCYSTEINE2021-03-09 11:29:55 Test Item Value Reference Range Interpretation Comments Homocysteine (test code = 6.2 umol/L 4.7-12.6 6539324734) Lab Interpretation (test code = Normal 44445-7) [facility] (04017)(TOTAL CHOLESTEROL, TRIGLYCERIDES, HDL)2020-06-02 11:12:32 Test Item Value Reference Range Interpretation Comments CHOL (test code = 160 mg/dL 120-200 7456387778) HDL (test code = 41 mg/dL >50 L 3501339695) HDLC RATIO (test code = See_Comment [Au tomated message] 8068632202) The system [employer] generated this result transmit [place] reference range : <=4.5. The refe rence range was not u sed to interpret th is result as normal/abnormal . TRIG (test code = 67 mg/dL 30-170 1251225499) LDL CHOL (test code = 106 mg/dL See_Comment [Auto mated message] 54237-4) The system [employer] generated this result transmit [place] reference range : <=160. The refe rence range was not u sed to interpret th is result as normal/abnormal . VLDL (test code = 13 mg/dL 5-60 0541584459) Lab Interpretation (test Abnormal code = 40304-6) [facility]anoPregnancy Test, [id number] 11:10:36 Test Item Value Reference Range Interpretation Comments PREG SERUM (test code Negative = 9426690679) MARIMA (test code = MARIAM) Less than 10 IU/L. ?If low titer or ectopic is suspected, resubmit specimen in 48-72 hours. [facility]anoUrinalysis2021-03-09 09:14:26 Test Item Value Reference Range Interpretation Comments APPEARANCE (test code = Clear Clear 7359826543) COLOR (test code = Straw Yellow A 2825488868) PH (test code = 4.8-8.0 7250293268) SP GRAVITY (test code = 1.003-1.030 7897559704) GLU U QUAL (test code = Normal Normal 7838275719) BLOOD (test code = Negative Negative 1568903910) KETONES (test code = Negative Negative 8808975013) PROTEIN (test code = Negative Negative 2887-8) UROBILIN (test code = Normal Normal 4567091008) BILIRUBIN (test code = Negative Negative 8641912545) NITRITE (test code = Negative Negative 3082517707) LEUK SIENNA (test code = Negative Negative 0931353895) RBC/HPF (test code = <1 See_Comment [Autom ated message] 0754535695) The system [employer] generated this result transmitted ref erence range: 0 - 3 HP F. The reference range was not used to int erpret this result as normal/abnormal . WBC/HPF (test code = See_Comment [Autom ated message] 7499574428) The system [employer] generated this result transmitted ref erence range: 0 - 5 HP F. The reference range was not used to int erpret this result as normal/abnormal . BACTERIA (test code = Few Negative A 1591844407) SQ EPITH (test code = HPF 3351940131) Lab Interpretation (test Abnormal code = 14015-0) [facility]COVID-[facility] (ID NOW RAPID TESTING)2020-06-02 03:50:18 Test Item Value Reference Range Interpretation Comments SARS-CoV-2 Rapid ID NOW Not Detected Not Detected (test code = 67580-1) MARIAM (test code = MARIAM) ID NOW COVID-19 Assay is an isothermal nucleic acid amplification test intended for the qualitative detection of nucleic acid from SARS-CoV-2 viral RNA in nasopharyngeal (NEONATAL NURSE PRACTITIONER) specimens. It is used under Emergency Use [...] indicated. Lab Interpretation Normal (test code = 21211-5) [facility]anoCT STR[facility]KE ANGIOGRAM [id number] 03:32:32 CT head and neck angiograms are unremarkable with no high-grade stenosis,aneurysm or vascular malformation. Preliminary Report Dictated by Resident: Gamaliel Monroe I, Lawrence Allison MD., have reviewed this study and agree with theabove report.CT STROKE ANGIOGRAM NECK, CT STROKE ANGIOGRAM HEAD HISTORY: Neuro deficit, acute, stroke suspected TECHNIQUE: CTA imaging of the head and neck were obtained afteradministration 100 cc IV Omnipaque contrast. Coronal and sagittal MIPSreformats are provided. COMPARISON: ?None [place] FINDINGS: The PICA origin is visualized bilaterally. The basilar artery is normal incaliber. The superior cerebellar arteries are unremarkable. The posteriorcerebral arteries are unremarkable. The large and of the right CLEANING ASSOCIATE isnoted. A small left posterior communicating artery [...] unremarkable. The large and of the right CLEANING ASSOCIATE isnoted. A small left posterior communicating artery [...] or vascular malformation.Preliminary Report Dictated by Resident: Lawrence Rothman MD., have reviewed this study and agree with theabove report. [facility]CT [facility] [id number] 03:32:32 CT head and neck angiograms are unremarkable with no high-grade stenosis,aneurysm or vascular malformation. Preliminary Report Dictated by Resident: Lawrence Blum MD., have reviewed this study and agree with theabove report.CT STROKE ANGIOGRAM NECK, CT STROKE ANGIOGRAM HEAD HISTORY: Neuro deficit, acute, stroke suspected TECHNIQUE: CTA imaging of the head and neck were obtained afteradministration 100 cc IV Omnipaque contrast. Coronal and sagittal MIPSreformats are provided. COMPARISON: ?None [place] FINDINGS: The PICA origin is visualized bilaterally. The basilar artery is normal incaliber. The superior cerebellar arteries are unremarkable. The posteriorcerebral arteries are unremarkable. The large and of the right CLEANING ASSOCIATE isnoted. A small left posterior communicating artery [...] unremarkable. The large and of the right CLEANING ASSOCIATE isnoted. A small left posterior communicating artery [...] or vascular malformation.Preliminary Report Dictated by Resident: Gamaliel Barton, Lawrence Allison MD., have reviewed this study and agree with theabove report. [facility]anoACTIVATED PARTIAL THRMPLAS [id number] 03:13:16 Test Item Value Reference Range Interpretation Comments APTT Patient (test See_Comment [Automat ed code = 3173-2) message] The system which generated this result transmitted reference range : 23 - 38 Seconds . The reference range was not used to interpr et this result as normal/abnormal . MARIAM (test code = MARIAM) The [facility] patient population mean normal value for aPTT is 30 seconds. Lab Interpretation Normal (test code = 69396-7) [facility]anoPROTHROMBIN TIME / [id number] 03:11:16 Test Item Value Reference Range Interpretation [...] tions. Lab Interpretation (test Normal code = 31838-3) [facility]anoTHYROID STIMULATING [id number] 02:57:31 Test Item Value Reference Range Interpretation Comments TSH (test code = See_Comment H [Automated message] 4012097687) The system [employer] generated this result transmitted ref erence range: 0.45 - 4 .70 mIU/L. The refe rence range was not u sed to interpret this result as normal/abnor mal. Lab Interpretation (test Abnormal code = 11933-6) [facility]anoCT STROKE HEAD WO [id number] 02:52:[address] STROKE HEAD WO [...] seen in the visualizedparanasal air sinuses.IMPRESSIONNormal CT headUnBaptist Saint Anthony's HospitalUrinalysis 2020-06-02 02:51:32 Test Item Value Reference Range Interpretation Comments APPEARANCE (test code = Clear Clear 9182301708) COLOR (test code = Straw Yellow A 1414364577) PH (test code = 4.8-8.0 9234543045) SP GRAVITY (test code = 1.003-1.030 9406714000) GLU U QUAL (test code = Normal Normal 3665327633) BLOOD (test code = Negative Negative 0125778069) KETONES (test code = Negative Negative 0484672908) PROTEIN (test code = Negative Negative 2887-8) UROBILIN (test code = Normal Normal 5676197207) BILIRUBIN (test code = Negative Negative 4027359227) NITRITE (test code = Negative Negative 4573166826) LEUK SIENNA (test code = Negative Negative 1377742688) RBC/HPF (test code = See_Comment [Autom ated message] 9055923426) The system [employer] generated this result transmitted ref erence range: 0 - 3 HP F. The reference range was not used to int erpret this result as normal/abnormal . WBC/HPF (test code = <1 See_Comment [Autom ated message] 4734983254) The system [employer] generated this result transmitted ref erence range: 0 - 5 HP F. The reference range was not used to int erpret this result as normal/abnormal . BACTERIA (test code = Few Negative A 6896421348) SQ EPITH (test code = HPF 3160165460) HYAL CAST (test code = See_Comment [Aut omated message] 9301392940) The system [employer] generated this result transmitted ref erence range: <=2 LPF. The reference range was not used to int erpret this result as normal/abnormal . Lab Interpretation (test Abnormal code = 89840-9) [facility]anoTroponin [id number] 02:39:06 Test Item Value Reference Range Interpretation Comments TROPONIN I (test 0.002 ng/mL See_Comment [Automated code = 1448123713) message] The system which generated this result [...] ? Lab Interpretation Normal (test code = 92881-1) [facility]anoN-TERMINAL [id number] 02:35:47 Test Item Value Reference Range Interpretation Comments NT-proBNP (test code 41 pg/mL See_Comment [Autom ated = 0025224700) message] The system which generated this result transmitted reference range : <=125. The reference range was not used to interpret this result as normal/abnormal . MARIAM (test code = MARIAM) Biotin has been reported to cause a negative bias, interpret results relative to patient's use of biotin. Lab Interpretation Normal (test code = 11996-5) [facility]anoPONY GLUCOSE (AUTOMATED)2020-06-02 02:35:07 Test Item Value Reference Range Interpretation Comments POCT GLU (test code = 9176967792) 90 mg/dL 70-110 Lab Interpretation (test code = Normal 81973-6) [facility] (NA, K, CL, CO2, GLUCOSE, BUN, CREATININE, CA)2020-06-02 02:27:04 Test Item Value Reference Range Interpretation Comments NA (test code = 137 mmol/L 135-145 0853025339) K (test code = 3.5 mmol/L 3.5-5.0 1716739241) CL (test code = 100 mmol/L 98-108 4549267952) CO2 TOTAL (test code = 27 mmol/L 23-31 6542954238) AGAP (test code = 2-16 8018179061) BUN (test code = 12 mg/dL 7-23 6098635669) GLUCOSE (test code = 92 mg/dL 70-110 6930596681) CREATININE (test code 0.70 mg/dL 0.50-1.04 = 0993035017) CALCIUM (test code = 9.1 mg/dL 8.6-10.6 2703173820) eGFR Calculation mL/min/1.73m2 (Non-) (test code = 1783015169) eGFR Calculation mL/min/1.73m2 () (test code = 2156006823) MARIAM (test code = MARIAM) Association of [...] or urine or abnormalities in imaging tests). [facility] (ALB, T.PRO, BILI T, BU/BC, ALT, AST, ALK PHOS)2020-06-02 02:27:04 Test Item Value Reference Range Interpretation Comments TOTAL BILI (test code = 7829110661) 0.5 mg/dL 0.1-1.1 BILI UNCON (test code = 0012344813) 0.4 mg/dL 0.1-1.1 BILI CONJ (test code = 4284665719) 0.0 mg/dL 0.0-0.3 T PROTEIN (test code = 7150435228) 7.8 g/dL 6.3-8.2 ALBUMIN (test code = 4956835545) 4.8 g/dL 3.5-5.0 ALK PHOS (test code = 8710999225) 85 U/L 34-122 ALTv (test code = 1742-6) 24 U/L 5-35 AST(SGOT) (test code = 8956623016) 27 U/L 13-40 Lab Interpretation (test code = Normal 52779-6) [facility] PlanoLipase [id number] 02:26:49 Test Item Value Reference Range Interpretation Comments LIPASE (test code = 6811555876) 72 U/L 0-220 Lab Interpretation (test code = Normal 98056-9) [facility]anoPOCT [id number] 02:26:00 Test Item Value Reference Range Interpretation Comments POCT PREG (test code = 1605) negative On board controls acceptable with present C Line (test code = 3574) POCT PREG LOT # (test code = 3575) [id number] POCT PREG TEST DATE (test 2021-12-24 code = 3576) Lab Interpretation (test code = Normal 14596-2) [facility]anoD-[id number] 02:23:46 Test Item Value Reference Interpretation Comments Range D-DIMER (test code = See_Comment H [Autom ated 6410177632) message] The system which generated this result [...] diagnosis. Lab Interpretation Abnormal (test code = 33946-6) [facility] - DRUG SCREEN [id number] 02:21:13 Test Item Value Reference Range Interpretation Comments BENZO U (test code = Negative Negative 9894594670) KAYLEE U (test code = Negative Negative 6798956304) AMPHET (test code = Negative Negative 0201050367) THC (test code = Negative Negative 5195630674) METHADONE (test code = Negative Negative 5213296004) Meth U (test code = Negative Negative 7996146235) OPIATES (test code = Negative Negative 3710188855) Cocaine Metabolite (test Negative Negative code = 7968054984) PROPOXY (test code = Negative Negative 9127764657) Tric U (test code = Negative Negative 2851602594) PCP (test code = Negative Negative 4859301521) OXYCOD (test code = Negative Negative 7937283497) MARIAM (test code = MARIAM) Urine Drug [...] testing). Lab Interpretation (test Normal code = 56744-4) [facility] with [id number] 02:16:05 Test Item Value Reference Range Interpretation [...] RDW-SD (test code = 41.4 fL 39.0-49.9 80220-4) RDW-CV (test code = 11.9 % 12.0-15.5 L 788-0) PLT (test code = See_Comment [Automated 777-3) message] The sy stem which generated this result transmitted reference range : 166 - 358 10*3/ ?L. The reference r belkis was not used to interpret this result as normal/abnormal . MPV (test code = 9.9 fL 9.5-12.9 84346-2) NRBC/100 WBC (test See_Comment [Automat ed code = 7849048163) message] The system which generated this result transmitted reference range : 0.0 - 10.0 /100 WBCs. The refer ence range was not u sed to interpret th is result as normal/abnormal . NRBC x10^3 (test code <0.01 See_Comment [Auto mated = 5921232627) message] The s ystem which generated this result transmitted reference range : 10*3/?L. The reference range was not used to interpret this result as normal/abnormal . GRAN MAT (NEUT) % 58.1 % (test code = 770-8) IMM GRAN % (test code 0.40 % = 4453894324) LYMPH % (test code = 31.9 % 736-9) MONO % (test code = 8.1 % 5905-5) EOS % (test code = 1.0 % 713-8) BASO % (test code = 0.5 % 706-2) GRAN MAT x10^3(ANC) 4.66 10*3/uL 1.88-7.09 (test code = 5641699274) IMM GRAN x10^3 (test 0.03 10*3/uL 0.00-0.06 code = 9675554235) LYMPH x10^3 (test code 2.56 10*3/uL 1.32-3.29 = 731-0) MONO x10^3 (test code 0.65 10*3/uL 0.33-0.92 = 742-7) EOS x10^3 (test code = 0.08 10*3/uL 0.03-0.39 711-2) BASO x10^3 (test code 0.04 10*3/uL 0.01-0.07 = 704-7) Lab Interpretation Abnormal (test code = 34610-3) [facility]anoElectroencephal[facility] ([facility] - Duration of test: 20-60 [id number] 00:00:00Date and Time of Procedure: 06/02/2020, 11:11:39- [...] occur. Marie Ayala MD Date of interpretation: 06/02/2020UnB[facility] HospitalXR CHEST 2 VW COVID 2020-04-07 20:06:04No signs of acute cardiopulmonary disease. Disclaimer: Generally, the findings on chest imaging in COVID-19 are notspecific, and overlap with other infections, including influenza, H1N1,SARS and MERS.According to the Centers for Disease Control (CDC) and the [employer] [place] [employer], viral testingremains the only specific method of diagnosiseven if CXR or CT findings are suggestive of COVID-19. PROCEDURE: CHEST XRAY CLINICAL INDICATION: Bronchitis, not specified as acute or chronic COMPARISON: Previous study of 03/09/2015. FINDINGS: Lungs: Clear Pleura: No pleural effusion or pneumothorax is seen. The heart is normal insize. Cardiothoracic ratio is 12.4/29.0 cm. No acute bony abnormality. Wymb, Radiant Results Inft User - 04/07/2020 2:07 [...] Centers for Disease Control (CDC) and the [employer] [place] [employer], viral testing remains the only specific method of diagnosiseven if CXR or CT findings are suggestive of COVID-19.[facility] [id number] 17:07:00 RUN DATE: 11/29/18 [facility] PAGE 1 RUN TIME: 1819 Specimen Inquiry RUN USER: INTERFACE --PATIENT: JELENA US LOC: LETY U #: [id number] AGE/SX: 43/F ROOM: [facility] RE11/27/18BONIFACIO DR: Nicolle Draper MD : 77 BED: A DIS: 11/28/18 STATUS: DIS Jr TLOC: SPEC #: [id number] RECD: 11/27/18 STATUS: KIM ARREDONDO #: [id number] CHRISTINA: 11/27/18- [facility] DR: Nicolle Draper MD ENTERED: 11/28/18 SP TYPE: PELVIC DEBBY OTHR DR: ORDERED: LEVEL IV/4 CODES: G17985 - UTERUS, NOS H91108 - FALLOPIAN [id number] - PELVIC GENITAL PROCEDURES: LEVEL IV (Incomplete) TISSUES: PELVIC GENITAL STRUCTURES, NOS - RIGHT PELVIC SIDEWALL ENDOMETRIOSIS, POSTERIOR CUL DE SAC ENDOMET UTERUS, NOS - UTERUS, CERVIX AND BILATERAL FALLOPIAN TUBES FALLOPIAN TUBE, NOS - RIGHT PARATUBAL CYST CLINICAL HISTORY 43 year old, pelvic pain (wpd) FINAL DIAGNOSIS Right pelvic sidewall endometriosis, excision: - peritoneal tissue withfocal fibrosis Right paratubal cyst, excision: - benign [...] with focal benign endometrial replacement CPT code(s): 03857 x3, 40[address] [facility] 11/29/18 CONTINUED ON NEXT PAGE RUN DATE: 11/29/18 [facility] PAGE 2 RUN TIME: 1820 Specimen Inquiry RUN USER: INTERFACE SPEC #: [id number] PATIENT: JELENA US #[id number] (Continued)----- ------- GROSS DESCRIPTION ANATOMIC SOURCE OF TISSUE (per [...] with attached soft tissue. The cyst lining is trabeculated. There are no identifiable excrescences. Casino Worker sections submitted as B1. Specimen #3 is [...] fimbriated fallopian tubes (right 6.5 cm in length and left 6.5 cm in length). The uterine serosa is rankin-pink and slightly nodular with a few adhesions. The 4 cm ectocervix displays a central 1 cm slit-like os. The endometrium is rankin-red, hemorrhagic, slightly nodular and lush with a thickness measuring [...] endometrium and serosal adhesions, D5 - senior sales representative sections of right fallopian tube, D6 - senior sales representative sections of left fallopian tube. alex/roby 11/28/18 @ 1207 Signed Ethel Lopez MD 11/29/18 1707 END OF REPORT HGB [id number] 05:12:00 Test Item Value Reference Range Interpretation Comments HEMOGLOBIN (test code = HGB) 11.7 g/dL 10.7-13.9 N HEMATOCRIT (test code = HCT) 34.6 % 32.1-42.1 N AG HEPATITIS B [id number] 14:24:00 Test Item Value Reference Range Interpretation Comments AG HEPATITIS B SURFACE (test code NONREACTIVE NONREACTIVE = HBSAG) IS CONSENT FORM SIGNED FOR HIV TESTING? YAB HEPATITIS C [id number] 14:24:00 Test Item Value Reference Range Interpretation Comments AB HEPATITIS C (test code = NONREACTIVE NONREACTIVE HCVAB) SIGNAL TO CUTOFF (test code = <0.02 <0.80 N CUTOFF) IS CONSENT FORM SIGNED FOR HIV TESTING? YAB HIV 1 14:24:00 Test Item Value Reference Range Interpretation Comments AB HIV 1 2 (test NONREACTIVE NONREACTIVE Done by [facility] code = [id number]) 4th Gen HIV Ag/Ab Combo Screen IS CONSENT FORM SIGNED FOR HIV TESTING? YAG HEPATITIS B [id number] 13:50:00 Test Item Value Reference Range Interpretation Comments AG HEPATITIS B SURFACE (test code NONREACTIVE NONREACTIVE = HBSAG) IS CONSENT FORM SIGNED FOR HIV TESTING? YAB HEPATITIS C [id number] 13:50:00 Test Item Value Reference Range Interpretation Comments AB HEPATITIS C (test code = HCVAB) NONREACTIVE SIGNAL TO CUTOFF (test code = CUTOFF) <0.80 IS CONSENT FORM SIGNED FOR HIV TESTING? YAB HIV 1 13:50:00 Test Item Value Reference Range Interpretation Comments AB HIV 1 2 (test code = FUI50BL) NONREACTIVE IS CONSENT FORM SIGNED FOR HIV TESTING? YHCG SERUM [id number] 13:22:00 Test Item Value Reference Range Interpretation Comments HCG SERUM QUAL (test code = HCGQL) NEGATIVE CBC W/AUTO [id number] 13:06:00 Test Item Value Reference Range Interpretation [...] (test NORMAL NORMAL code = PLTMR) URINALYSIS [id number] 13:05:00 Test Item Value Reference Range Interpretation [...] SEEN URINE SAMPLE: CLEAN CATCH- US TRANSVAGINAL [id number] 14:06:00 Patient Name: JELENA US Unit No: [id number] EXAMS: CPT CODE: [id number] US TRANSVAGINAL W/PELVIS 78986 Pelvic US performed November 08, 2018. COMPARISON: [...] Katerine Menchaca MD CC: Irma Gan MD Te chnologist: Scarlet Flowers RDMS Probe: [id number] Trnscrbd D/ (1046) t.SDR.NMG Orig PrintD/T: S: 11/08/2018 (7384) [facility] NAME: JELENA US Radiology Department PHYS:POLINAAL. - Irma Gan [address] : 1975 AGE: 43 SEX: F [place] [address] LOC: BillyERS PHONE #: [phone] EXAM DATE: 11/08/2018 STATUS: DEP ER FAX #: [phone] RAD NO: Page 1 Signed Report Patient Name: JELENA US Unit No: [id number] EXAMS: CPT CODE: [id number] US TRANSVAGINAL W/PELVIS 35129 <Continued> [facility] NAME: JELENA US Radiology Department PHYS: POLINAAL. - Irma Gan [address] : 1975 AGE: 43 SEX: F [place] [address] LOC: BillyERS PHONE #: [phone] EXAM DATE: 11/08/2018 STATUS: DEP ER FAX #: [phone] RAD NO: Page 2 Signed Report- US TRANSVAGINAL [id number] 14:06:00 Patient Name: JELENA US Unit No: [id number] EXAMS: CPT CODE: [id number] US TRANSVAGINAL W/PELVIS 83441 Pelvic US performed November 08, 2018. COMPARISON: [...] Gan MD Technologist: Scarlet Flowers RDMS Probe: [id number] Trnscrbd D/ (1406) t.NMG Orig PrintD/T: S: 11/08/2018 (1409) [facility] NAME: JELENA US Radiology Department PHYS:Irma Asher [address] : 1975 AGE: 43 SEX: F [place], [place] [address] LOC: F.ERS PHONE #: [phone] EXAM DATE: 11/08/2018 STATUS: REG ER FAX #: [phone] RAD NO: Page 1 Signed Report Patient Name: JELENA US Unit No: [id number] EXAMS: CPT CODE: [id number] US TRANSVAGINAL W/PELVIS 81062 (Continued) [facility] NAME: JELENA US Radiology Department PHYS: BERNADETTE - GanIrma lock [address] : 1975 AGE: 43 SEX: F [place], [place] [address] LOC: ANA PHONE #: [phone] EXAM DATE: 11/08/2018 STATUS:REG ER FAX #: [phone] RAD NO: Page 2 Signed Report- US PELVIS [id number] 14:06:00 Patient Name: JELENA US Unit No: [id number] EXAMS: CPT CODE: [id number] US PELVIS COMPLETE 88731 Pelvic US performed November 08, 2018. COMPARISON: [...] Scarlet Flowers RDMS Probe: Trnscrbd D/ (1406) t.FREDERICK.NMG Orig Print D/T: S: 11/08/2018 (1409) [facility] NAME: JELENA US Radiology Department PHYS: ANNY. - Irma Bueno [address] : 1975 AGE: 43 SEX: F [place], [place] [address] LOC: ANA PHONE #: [phone] EXAM DATE: 11/08/2018 STATUS: DEP ER FAX #: [phone] RAD NO: Page1 Signed Report Patient Name: JELENA US Unit No: [id number] EXAMS: CPT CODE: [id number] US PELVIS COMPLETE 05635 <Continued> [facility] NAME: JELENA US Radiology Department PHYS: GUTAL. - Irma Gan [address] : 1975 AGE: 43 SEX: F [place], [place] [address]UTYD NO: [id number] LOC: BillyERS PHONE #: [phone] EXAM DATE: 11/08/2018 STATUS: DEP ER FAX #: [phone] RAD NO: Page 2 Signed Report- US PELVIS [id number] 14:06:00 Patient Name: JELENA US Unit No: [id number] EXAMS: CPT CODE: [id number] US PELVIS COMPLETE 47401 Pelvic US performed November 08, 2018. COMPARISON: [...] Scarlet Flowers RDMS Probe: Trnscrbd D/ (1406) DaisyG Orig Print D/T: S: 11/08/2018 (0359) [facility] NAME: JELENA US Radiology Department PHYS: GUTAL. - Gan,Irma [address] : 1975 AGE: 43 SEX: F [place], [place] [address] LOC: BillyERS PHONE #: [phone] EXAM DATE: 11/08/2018 STATUS: REG ER FAX #: [phone] RAD NO: Page 1 Signed Report Patient Name: JELENA US Unit No: [id number] EXAMS: CPT CODE: [id number] US PELVISCOMPLETE 41888 (Continued) [facility] NAME: JELENA US Radiology Department PHYS: ANNY.Fausto Irma Gan [address] : 1975 AGE: 43 SEX: F [place], [place] [address] LOC: ANA PHONE #: [phone] EXAM DATE: 11/08/2018 STATUS: REG ER FAX #: [phone] RAD NO: Page 2 Signed ReportCOMPREHENSIVE METABOLIC [...] N code = ALKP) DRUGS OF ABUSE [id number] 13:04:00 Test Item Value Reference Range Interpretation [...] = PHENCU) 25 ng/m L CBC W/AUTO [id number] 13:00:00 Test Item Value Reference Range Interpretation [...] = PLTMR) UA RFLX MICR CULT IF [id number] 12:57:00 Test Item Value Reference Range Interpretation [...] SEEN Indication for culture: Suprapubic PainUR HCG [id number] 12:57:00 Test Item Value Reference Range Interpretation [...] culture: Suprapubic PainUA RFLX MICR CULT IF [id number] 12:54:00 Test Item Value Reference Range Interpretation [...] RARE-FEW Indication for culture: Suprapubic PainUR HCG [id number] 12:54:00 Test Item Value Reference Range Interpretation [...]
[2022-07-27] MEDS ORDERED: MECLIZINE HCL 12.5 MG TAB ONE (09:56)
[2022-07-27] MEDS ORDERED: ONDANSETRON 4 MG/2 ML VIAL ONE (09:57)
[2022-07-27] MEDS ORDERED: NA CHLORIDE 0.9% 1,000 ML ONE (09:57)
[2022-07-27 09:59] LABS: Absolute Lymphocytes (CBC) 1.3 K/uL (0.7-4.9); Hematocrit 37.2 % (36.0-45.0); Lymphocytes % 26.9 % (15.3-44.8); MCV 93.4 fL (80-100); MPV 7.7 fL (7.6-11.3); RBC Red Blood Cell Count 3.98 M/uL (3.86-4.86)
--- NOTE | 2022-07-27 10:15 | RAD REPORT ---
EXAM DESCRIPTION: RAD - Chest Single View - 07/27/2022 10:07 am CLINICAL HISTORY: COUGH Chest pain. COMPARISON: No comparisons FINDINGS: Portable technique limits examination quality. The lungs are grossly clear. The heart is normal in size. No displaced fractures. IMPRESSION: No acute intrathoracic process suspected.
[2022-07-27 10:16] LABS: Albumin 3.7 g/dL (3.4-5.0); Bilirubin Total 0.4 mg/dL (0.2-1.0); Potassium 3.7 mEq/L (3.5-5.1); Protein, Total 7.1 g/dL (6.4-8.2); Troponin High Sensitivity 3.3 pg/mL (<58.9)
--- NOTE | 2022-07-27 11:55 | RAD REPORT ---
EXAM DESCRIPTION: US - CP - 07/27/2022 11:00 am CLINICAL HISTORY: DIZZINESS Headache, drowsiness COMPARISON: No comparisons TECHNIQUE: Real-time sonographic evaluation of both carotid systems was performed. Doppler interroga tion was performed with waveform tracing bilaterally. FINDINGS: Normal high resistance waveforms are noted in both external carotid arteries. The common c arotid arteries and internal carotid arteries show normal low resistance waveforms. No significant plaque formation is seen. Peak systolic and end diastolic velocity values and the ICA/ CCA ratios are in the non-hemodynamically significant range. Antegrade flow seen in both vertebral arteries. IMPRESSION: No significant atherosclerotic changes noted. No evidence of a hemodynamically significant stenosis.
--- NOTE | 2022-07-27 12:20 | ER ---
Nurse's Notes [facility] Name: Caridad Conn Age: 47 yrs Sex: Female : 1975 Arrival Date: 07/27/2022 Time: 09:23 Bed 16 Private MD: Diagnosis: Benign paroxysmal vertigo;Other peripheral vertigo, unspecified ear;Dizziness and giddiness Presentation: 07/27 09:35 Chief complaint: Patient states: intermittent dizziness x 3 weeks. Coronavirus screen: ss Client denies travel out of the [place] in the last 14 days. Ebola Screen: Patient denies exposure to infectious person. Patient denies travel to an Ebola-affected area in the 21 days before illness onset. Initial Sepsis Screen: Does the patient meet any 2 criteria? No. Patient's initial sepsis screen is negative. Does the patient have a suspected source of infection? No. Patient's initial sepsis screen is negative. Risk Assessment: Do you want to hurt yourself or someone else? Patient reports no desire to harm self or others. Onset of symptoms is unknown. 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 - Social history:: Smoking status: Patient denies any tobacco usage or history of. - Family history:: not pertinent. Screenin:39 [facility] ED Fall Risk Assessment (Adult) History of falling in the last 3 months, ss including since admission No falls in past 3 months (0 pts). Abuse screen: Denies threats or abuse. Denies injuries from another. Nutritional screening: No deficits noted. 12:00 Tuberculosis screening: No symptoms or risk factors identified. eh3 Assessment: 09:40 General: Appears uncomfortable, Behavior is calm, cooperative. Pain: Complains of pain aa5 in forehead, right methodist and left methodist Quality of pain is described as pressure. Neuro: Level of Consciousness is awake, alert, obeys commands, Oriented to person, place, time, situation, Accountant Supervisor are equal bilaterally Moves all extremities. Speech is normal, Facial symmetry appears normal, Pupils are PERRLA, Reports dizziness, that is intermittent x 3 weeks ago, reports dizziness at this time. Cardiovascular: Heart tones S1 S2 present Rhythm is regular. Respiratory: Airway is patent Respiratory effort is even, unlabored, Respiratory pattern is regular, symmetrical. GI: Abdomen is non-distended, Bowel sounds present X 4 quads. Abd is soft and non tender X 4 quads. Reports nausea, Patient currently denies diarrhea, vomiting. : No signs and/or symptoms were reported regarding the genitourinary system. EENT: No signs and/or symptoms were reported regarding the EENT system. Derm: Skin is pink, warm \T\ dry. Musculoskeletal: Range of motion: intact in all extremities. 09:56 Reassessment: Pt resting with eyes closed, will wait a few minutes for nausea to be aa5 improved before administering PO medications, pt agrees. . 10:17 Reassessment: Patient is alert, oriented x 3, equal unlabored respirations, skin aa5 warm/dry/pink. Nausea has improved. Pt to US via stretcher at this time. . 11:08 Reassessment: Patient is alert, oriented x 3, equal unlabored respirations, skin aa5 warm/dry/pink. Patient states feeling better. Reports dizziness has improved. . 12:00 Reassessment: Patient appears in no apparent distress at this time. Patient and/or eh3 family updated on plan of care and expected duration. Pain level reassessed. Patient is alert, oriented x 3, equal unlabored respirations, skin warm/dry/pink. Vital Signs: 09:35 BP 122 / 84; Pulse 98; Resp 16; Temp 98.2(TE); Pulse Ox 98% on R/A; Weight 65.77 kg; ss Height 5 ft. 6 in. ; Pain 0/10; 11:30 BP 107 / 81; Pulse 63; Resp 17 S; Pulse Ox 100% on R/A; aa5 09:35 Body Mass Index 23.40 (65.77 kg, 167.64 cm) 09:35 Pain Scale: Adult ss ED Course: 09:26 Patient arrived in ED. ts1 09:27 Curt Perla MD is Attending Physician. chrystal 09:33 Maryam Xiao RN is Primary Nurse. aa5 09:37 Triage completed. ss 09:37 Arm band placed on right wrist. ss 09:39 EKG done, by ED staff, reviewed by Curt Perla MD. aa5 09:40 Patient has correct armband on for positive identification. Placed in gown. Bed in low aa5 position. Call light in reach. Side rails up X2. Client placed on continuous cardiac and pulse oximetry monitoring. NIBP monitoring applied. 09:45 Inserted saline lock: 20 gauge in left antecubital area, using aseptic technique. Blood aa5 collected. 09:45 Initial lab(s) drawn, by me, sent to lab. aa5 10:09 Chest Single View XRAY In Process Unspecified. EDMS 11:02 US Carotid Artery Bilateral In Process Unspecified. EDMS 12:12 Report given to LAZ Phelan. aa5 12:34 No provider procedures requiring assistance completed. IV discontinued, intact, eh3 bleeding controlled, No redness/swelling at site. Pressure dressing applied. Administered Medications: 09:50 Drug: NS 0.9% IV 1000 ml Route: IV; Rate: 1 bolus; Site: left antecubital; aa5 12:20 Follow up: IV Status: Completed infusion; IV Intake: 1000ml eh3 09:50 Drug: Ondansetron IVP 4 mg Route: IVP; Site: left antecubital; aa5 10:18 Follow up: Response: Nausea is decreased aa5 10:17 Drug: Meclizine PO 50 mg Route: PO; aa5 12:20 Follow up: Response: Marked relief of symptoms eh3 Medication: 12:34 VIS not applicable for this client. eh3 Intake: 12:20 IV: 1000ml; Total: 1000ml. eh3 Outcome: 12:19 Discharge ordered by . [facility] 12:35 Discharged to home ambulatory. eh3 12:35 Condition: stable 12:35 Discharge instructions given to patient, Instructed on discharge instructions, follow up and referral plans. medication usage, Demonstrated understanding of instructions, follow-up care, medications, Prescriptions given X 2. 12:41 Patient left the ED. eh3 Signatures: Dispatcher [employer] Curt Willard MD MD cha Calderon, Audri, RN RN aa5 Rosy Whitman RN RN ss Hall, Erin, RN RN 3 Suzi Geller PAS PAS ts1 Corrections: (The following items were deleted from the chart) 09:37 PMHx: [facility] Val[facility]; [facility] :[facility] 09:37 PMHx: hyperthy[facility]; [facility]
--- NOTE | 2022-07-27 12:20 | EDPHYS ---
Physician Documentation [facility] Name: Caridad Conn Age: 47 yrs Sex: Female : 1975 Arrival Date: 07/27/2022 Time: 09:23 Bed 16 Private MD: PHILIPPE Physician Curt Perla HPI: 07/27 12:13 This 47 yrs old Female presents to ER via Ambulatory with complaints of chrystal Dizziness. 12:13 The patient presents with dizziness. Onset: The symptoms/episode began/occurred 2 chrystal week(s) ago. Context: occurred at home. Modifying factors: The symptoms are alleviated by closing eyes, holding head still, the symptoms are aggravated by movement of head. Associated signs and symptoms: Pertinent positives: nausea. Severity of symptoms: At their worst the symptoms were mild in the emergency department the symptoms are unchanged. Patient's baseline: Neuro: alert and fully oriented. The patient has not experienced similar symptoms in the past. 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 - Social history:: Smoking status: Patient denies any tobacco usage or history of. - Family history:: not pertinent. ROS: 12:13 Constitutional: Negative for fever, chills, and weight loss, Eyes: Negative for injury, chrystal pain, redness, and discharge, ENT: Negative for injury, pain, and discharge, Neck: Negative for injury, pain, and swelling, Cardiovascular: Negative for chest pain, palpitations, and edema, Respiratory: Negative for shortness of breath, cough, wheezing, and pleuritic chest pain, Abdomen/GI: Negative for abdominal pain, nausea, vomiting, diarrhea, and constipation, Back: Negative for injury and pain, : Negative for injury, bleeding, discharge, and swelling, MS/Extremity: Negative for injury and deformity, Skin: Negative for injury, rash, and discoloration, Psych: Negative for depression, anxiety, suicide ideation, homicidal ideation, and hallucinations, Allergy/Immunology: Negative for hives, rash, and allergies, Endocrine: Negative for neck swelling, polydipsia, polyuria, polyphagia, and marked weight changes, Hematologic/Lymphatic: Negative for swollen nodes, abnormal bleeding, and unusual bruising. 12:13 Neuro: Positive for dizziness. Exam: 12:13 Constitutional: This is a well developed, well nourished patient who is awake, alert, chrystal and in no acute distress. Head/Face: Normocephalic, atraumatic. Eyes: Pupils equal round and reactive to light, extra-ocular motions intact. Lids and lashes normal. Conjunctiva and sclera are non-icteric and not injected. Cornea within normal limits. Periorbital areas with no swelling, redness, or edema. ENT: Nares patent. No nasal discharge, no septal abnormalities noted. Tympanic membranes are normal and external auditory canals are clear. Oropharynx with no redness, swelling, or masses, exudates, or evidence of obstruction, uvula midline. Mucous membranes moist. Neck: Trachea midline, no thyromegaly or masses palpated, and no cervical lymphadenopathy. Supple, full range of motion without nuchal rigidity, or vertebral point tenderness. No Meningismus. Chest/axilla: Normal chest wall appearance and motion. Nontender with no deformity. No lesions are appreciated. Cardiovascular: Regular rate and rhythm with a normal S1 and S2. No gallops, murmurs, or rubs. Normal PMI, no JVD. No pulse deficits. Respiratory: Lungs have equal breath sounds bilaterally, clear to auscultation and percussion. No rales, rhonchi or wheezes noted. No increased work of breathing, no retractions or nasal flaring. Abdomen/GI: Soft, non-tender, with normal bowel sounds. No distension or tympany. No guarding or rebound. No evidence of tenderness throughout. Back: No spinal tenderness. No costovertebral tenderness. Full range of motion. Skin: Warm, dry with normal turgor. Normal color with no rashes, no lesions, and no evidence of cellulitis. MS/ Extremity: Pulses equal, no cyanosis. Neurovascular intact. Full, normal range of motion. Neuro: Awake and alert, GCS 15, oriented to person, place, time, and situation. Cranial nerves II-XII grossly intact. Motor strength 5/5 in all extremities. Sensory grossly intact. Cerebellar exam normal. Normal gait. 12:13 ECG was reviewed by the Attending Physician. Vital Signs: 09:35 BP 122 / 84; Pulse 98; Resp 16; Temp 98.2(TE); Pulse Ox 98% on R/A; Weight 65.77 kg; ss Height 5 ft. 6 in. ; Pain 0/10; 11:30 BP 107 / 81; Pulse 63; Resp 17 S; Pulse Ox 100% on R/A; aa5 09:35 Body Mass Index 23.40 (65.77 kg, 167.64 cm) ss 09:35 Pain Scale: Adult ss MDM: 09:27 Patient medically screened. [facility] [place] 12:17 Differential diagnosis: CVA, generalized weakness, idiopathic dizziness, near-syncope, chrystal TIA, vertigo. Data reviewed: vital signs, nurses notes, lab test result(s), EKG, radiologic studies, CT scan, doppler. Consideration of Admission/Observation Escalation of care including admission/observation considered. I considered the following discharge prescriptions or medication management in the emergency department Medications were administered in the Emergency Department. See MAR. Independent interpretation of the following test(s) in the Emergency Department MRI: My interpretation is no mri. Test considered but Not performed: MRI: no mri. Care significantly affected by the following chronic conditions: none. Counseling: I had a detailed discussion with the patient and/or guardian regarding: the historical points, exam findings, and any diagnostic results supporting the discharge/admit diagnosis, lab results, radiology results, the need for outpatient follow up, for definitive care, a family practitioner, a neurologist. 07/27 09:31 Order name: CBC with Diff; Complete Time: 12:12 [facility] [place] 07/27 09:31 Order name: Comprehensive Metabolic Panel; Complete Time: 12:12 [facility] [place] 07/27 09:31 Order name: Troponin HS; Complete Time: 12:12 [facility] [place] 07/27 09:31 Order name: Chest Single View XRAY; Complete Time: 12:12 [facility] [place] 07/27 09:31 Order name: US Carotid Artery Bilateral; Complete Time: 12:12 [facility] [place] 07/27 09:31 Order name: EKG; Complete Time: 09:32 [facility] [place] 07/27 09:31 Order name: EKG - Nurse/Tech; Complete Time: 09:45 chrystal EC:13 Rate is 84 beats/min. Rhythm is regular. QRS [place] is Normal. [place] interval is normal. QRS chrystal interval is normal. QT interval is normal. No Q waves. T waves are Normal. No ST changes noted. Clinical impression: NSR w/ Non-specific ST/T Changes and No evidence of ischemia. Interpreted by me. Reviewed by me. Administered Medications: 09:50 Drug: NS 0.9% IV 1000 ml Route: IV; Rate: 1 bolus; Site: left antecubital; aa5 12:20 Follow up: IV Status: Completed infusion; IV Intake: 1000ml eh3 09:50 Drug: Ondansetron IVP 4 mg Route: IVP; Site: left antecubital; aa5 10:18 Follow up: Response: Nausea is decreased aa5 10:17 Drug: Meclizine PO 50 mg Route: PO; aa5 12:20 Follow up: Response: Marked relief of symptoms eh3 Disposition Summary: 07/27/22 12:19 Discharge Ordered Location: Home chrystal Problem: new chrystal Symptoms: have improved chrystal Condition: Stable chrystal Diagnosis - Benign paroxysmal vertigo chrystal - Other peripheral vertigo, unspecified ear chrystal - Dizziness and giddiness chrystal Followup: chrystal - With: Private Physician - When: 2 - 3 days - Reason: Recheck today's complaints, Continuance of care, Re-evaluation by your physician Discharge Instructions: - Discharge Summary Sheet chrystal - Benign Positional Vertigo chrystal - Dizziness chrystal - Vertigo chrystal - Aspirin and Your Heart chrystal - Dizziness, [id number] chrystal Forms: - Medication Reconciliation Form chrystal - Thank You Letter chrystal - Antibiotic Education chrystal - Prescription Opioid Use chrystal Prescriptions: - Meclizine 25 mg Oral Tablet - take 1 tablet by ORAL route every 8 hours As needed; 30 tablet; Refills: 0, chrystal Product Selection Permitted - Zofran 4 mg Oral Tablet - take 1 tablet by ORAL route every 12 hours As needed; 20 tablet; Refills: 0, chrystal Product Selection Permitted Signatures: Dispatcher [employer] EDCurt Wood MD MD cha Calderon, Audri, RN RN aa5 Rosy Whitman RN RN ss Hall, Erin, RN RN eh3 Corrections: (The following items were deleted from the chart) 09:39 09:37 PMHx: Heart Valve disorder; ss ss :37 PMHx: hyperthyroidism; ss ss
[2022-07-27 12:49] VITALS: TEMP 98.2
[2022-07-27 12:51] VITALS: BP 107/81; O2SAT 100
--- NOTE | 2022-07-28 07:51 | EKG ---
Test Date: 2022-07-27 Test Time: 09:39:36 Manager Purchasing: YAO MEASUREMENT RESULTS: Intervals: Rate: 84 AR: 130 QRSD: 76 QT: 354 QTc: 418 [place]: P: 81 AR: 130 QRS: 57 T: 90 INTERPRETIVE STATEMENTS: Normal sinus rhythm Normal ECG No previous ECG available for comparison Electronically Signed On 07-28-22 07:49:44 CDT by Mariano Santamaria
== END 2022-07-27 12:41 | disposition home or self-care (01) ==
LOC: ER 09:23
DX: H81.10 Benign paroxysmal vertigo, unspecified ear (principal); H81.399 Other peripheral vertigo, unspecified ear; Z79.82 Long term (current) use of aspirin
CPT/HCPCS: 85025; 36415; 84484; 80053; 71045; 93880; J8597; J2405; J7030; 93005; 96361; 96374; 99284

== ENCOUNTER 2022-08-31 20:54 | Emergency (ER) | payer OTHER, BC ==
--- OUTSIDE RECORDS SUMMARY | 2022-08-31 20:59 | XMS REPORT | Continuity of Care Document ---
:1975 Author Organization [facility] t Address [address] [place] [address] [place] [id number] Care Team Providers Name Role Phone Marium, Helen Primary Care Physician Marlys Pan MD Attending Clinician MARLYS PAN Attending Clinician Unavailable Emily Arroyo Attending Clinician RADIOLOGY Attending Clinician Unavailable Radiology Attending Clinician Unavailable Doctor Unassigned, [place] Attending Clinician Unavailable ROMI LANE Attending Clinician Unavailable Romi Lane DO Attending Clinician CATHRYN GARSIA Attending Clinician Unavailable Cathryn Malloy Attending Clinician Lorri KHANNA, Magdalena García Attending Clinician Mp SMALL, Delilah Boykin Attending Clinician MELBA ARROYO Attending Clinician Unavailable MARIUMHELEN Admitting Clinician Unavailable ROMI LANE Admitting Clinician Unavailable YONNY HUERTA Admitting Clinician Unavailable Mp SMALL, Delilah Boykin Admitting Clinician MELBA ARROYO Admitting Clinician Unavailable Payers Payer Name Policy Type Policy Number Effective Date Expiration Date S ource OPEN ACCESS AETNA [id number] 2012 00:00:00 [employer] EPO AETNA HMO [id number] 2014 00:00:00 BCBS [facility] - [id number] 2018 00:00:00 OUT OF STATE Problems Condition Condition Condition Status Onset Resolution Last Treating Co mments Source Name Details Category Date Date Treatment Clinician Date Stroke-lik Stroke-lik Disease Active U nivers e symptoms e symptoms 3-09 it y of 00:00: [place] [address] Medical Branch Obesity Obesity Disease Active Univers (BMI (BMI 3-09 ity of 30-39.9) 30-39.9) 00:00: [place] [address] Medical Branch Migraine Migraine Disease Active Unive rs syndrome syndrome 3-09 ity of 00:00: [place] [address] Medical [place] Allergies, Adverse Reactions, Alerts Allergy Allergy Status Severity Reaction(s) Onset Inactive Treating Comm ents Source Name Type Date Date Clinician No Known DA Active U [facility]ie 8-15 [facility] [place] NO KNOWN Drug Active Univers ALLERGIE Class ity of S [facility] Social History Social Habit Start Date Stop Date Quantity Comments Source Gender identity 2022-07-11 Identifies as Method ist 08:35:48 female gender Hospital (finding) Sexual orientation [facility] Tobacco use and 2022-08-01 2022-08-01 Smokeless tobacco Me thodist exposure 00:00:00 00:00:00 non-user Hospital Alcohol intake 2022-08-01 2022-08-01 Ex-drinker [facility] 00:00:00 00:00:00 (finding) Hospital History of Social 2022-08-01 2022-08-[address] function 00:00:00 00:00:00 Hospital Exposure to 2022-07-19 2022-07-29 Not sure [facility]-CoV-2 (event) 00:00:00 12:28:00 [facility] Sex Assigned At [birth year] F [facility] 00:00:00 00:00:00 Hospital Smoking Status Start Date Stop Date Source Never smoked tobacco [facility] Tobacco smoking consumption Univ [facility] Branch Medications Ordered Filled Start Stop Current Ordering Indication Dosage Frequency Signature Comments Components Source Medication Medication Date Date Medication? Clinician (SIG) Name Name mupirocin 2022- No Q.5D Apply Method i (BACTROBAN) 08-[address] 2 % 00:00: 00:00 2 (two) Hospita ointment 00 :00 times a l day for 7 days. Apply a pea-sized amount with your finger or q-tip to the affected nostril(s) twice daily for 7 days. ketorolac 2021- No 10mg 10 mg, Unive rs (TORADOL) 12-06 Oral, ity of tablet 10 23:00: 22:18 [place]CE[place] :00 dose, On [facility] 12/06/21 at 1800, JOE polyethylen Yes [id number] 17g Take 17 g Univers e glycol 9-12 by mouth ity of 3350 17 00:00: in the [place] gram/dose 00 morning. Medica l powder Branch hydrocortis Yes [id number] 1{appli Insert 1 [facility] [place] [facility] 12-06 cator} Applicator ity of ne 00:00: into [place] (PROCTOFOAM 00 rectum in Med ical HC) rectal the Branch foam morning and 1 Applicator in the evening. polyethylen Yes [id number] 17g Take 17 g Univers e glycol 9-12 by mouth ity of 3350 17 00:00: in the [place] gram/dose 00 morning. Medica l powder Branch hydrocortis Yes [id number] 1{appli Insert 1 [facility] one-pramovi 12-06 cator} Applicator ity of ne 00:00: into [place] ([facility]FOAM 00 [facility] rectal the Branch foam morning and 1 Applicator in the evening. polyethylen Yes [id number] 17g Take 17 g Univers e glycol 9-12 by mouth ity of 3350 17 00:00: in the [place] gram/dose 00 morning. Medica l powder Branch hydrocortis Yes [id number] 1{appli Insert 1 Univers one-pramovi 912 cator} Applicator ity of ne 00:00: into [place] (PROCTOFOAM 00 [facility] rectal the Branch foam morning and 1 Applicator in the evening. polyethylen Yes [id number] 17g Take 17 g Univers e glycol 9-12 by mouth ity of 3350 17 00:00: in the [place] gram/dose 00 morning. Medica l powder Branch hydrocortis Yes [id number] 1{appli Insert 1 [facility] one-pramovi 12 cator} Applicator ity of ne 00:00: into [place] (PROCTOFOAM 00 rectum in [facility]) rectal the Branch foam morning and 1 Applicator in the evening. LORazepam 2021- No 1mg 1 mg, Univer s (ATIVAN) 06-09-16 Oral, ity of tablet 1 mg 22:45: 22:12 [place]CE[place] 1 [place] dose, On Medical Wed Branch 06/09/21 at 1745, JOE amoxicillin 2020-03 Yes 1{tbl} 1 tablet, Univers -clavulanat 04-28 Oral, ity of e 14:00: Q12H, [place] (AUGMENTIN) 00 First dose Me dical 875-125 mg on [place] Branch per tablet 02/25/21 at 1 tablet 0800, Until Discontinu ed, Routine
Reason for Anti-Infec tive: Documented Infection< br>Documen winston Infection Site: HEENT
D uration of Therapy: 10 days NaCl 0.9% 2020-03- No 1000mL at 999 Uni vers (NS) bolus 04-28 12-02 mL/hr, ity of infusion 00:00: 02:41 1,000 mL, [place] as 1,000 mL 00 :00 IV Medical Infusion, Branch ONCE, 1 dose, On 02/24/21 at 1800, STAT acetaminoph 2020-03- No 1000mg 1,000 mg, Univers en 04-28 Oral, ity of (TYLENOL) 00:00: 00:34 [place]CE[place] tablet [place] :00 dose, On Medical 1,000 mg Wed Branch 02/24/21 at 1800, Routine amoxicillin 2020-03 Yes [id number] 1{tbl} Take 1 Univers -clavulanat 2-01 tablet [...] Indication s: acute pain amoxicillin 2020-03 Yes [id number] 1{tbl} Take 1 Univers -clavulanat 2-01 tablet [...] Indication s: acute pain amoxicillin 2020-03 Yes [id number] 1{tbl} Take 1 Univers -clavulanat 2-01 tablet [...] Indication s: acute pain amoxicillin 2020-03 Yes [id number] 1{tbl} Take 1 Univers -clavulanat 2-01 tablet [...] Indication s: acute pain amoxicillin 2020-03 Yes [id number] 1{tbl} Take 1 Univers -clavulanat 2-01 tablet [...] Indication s: acute pain amoxicillin 2020-03 Yes [id number] 1{tbl} Take 1 Univers -clavulanat 2-01 tablet [...] Indication s: acute pain amoxicillin 2020-03 Yes [id number] 1{tbl} Take 1 Univers -clavulanat 2-01 tablet [...] [place] dose [place] 00 on [facility] 06/02/20 at Branch 2100, Until Discontinu ed, Routine aspirin 81 2020-0 Yes [id number] 81mg Take 1 Univers mg chewable 3-10 tablet by ity of tablet 00:00: mouth [place] 00 daily. [facility] aspirin 81 2020-0 Yes [id number] 81mg Take 1 Univers mg chewable 3-10 tablet by ity of tablet 00:00: mouth [place] 00 daily. [facility] aspirin 81 2020-0 Yes [id number] 81mg Take 1 Univers mg chewable 3-10 tablet by ity of tablet 00:00: mouth [place] 00 daily. [facility] aspirin 81 2020-0 Yes [id number] 81mg Take 1 Univers mg chewable 3-10 tablet by ity of tablet 00:00: mouth [place] 00 daily. [facility] aspirin 81 2020-0 Yes [id number] 81mg Take 1 Univers mg chewable 3-10 tablet by ity of tablet 00:00: mouth [place] 00 daily. [facility] aspirin 81 2020-0 Yes [id number] 81mg Take 1 Univers mg chewable 3-10 tablet by ity of tablet 00:00: mouth [place] 00 daily. [facility] aspirin 81 2020-0 Yes [id number] 81mg Take 1 Univers mg chewable 3-10 tablet by ity of tablet 00:00: mouth [place] 00 daily. [facility] aspirin 81 2020-0 Yes [id number] 81mg Take 1 Univers mg chewable 3-10 tablet by ity of tablet 00:00: mouth [place] 00 daily. [facility] aspirin 81 2020-0 Yes [id number] 81mg Take 1 Univers mg chewable 3-10 tablet by ity of tablet 00:00: mouth [place] 00 daily. [facility] aspirin 81 2020-0 Yes [id number] 81mg Take 1 Univers mg chewable 3-10 tablet by ity of tablet 00:00: mouth [place] 00 daily. [facility] aspirin 81 2020-0 Yes 81mg QD Chew 1 Metho di mg chewable 3-10 tablet (81 st tablet 00:00: mg total) Hospit a 00 daily. l paroxetine 2020-0 Yes 10mg Take 10 mg U nivers 10 mg 3-09 by mouth ity of tablet 21:20: daily. [place] 37 [facility] paroxetine 2020-0 Yes 10mg Take 10 mg U nivers 10 mg 3-09 by mouth ity of tablet 21:20: daily. [address] paroxetine Yes 10mg Take 10 mg U nivers 10 mg 3-09 by mouth ity of tablet 21:20: daily. [address] perflutren 2020- No [id number] 2mL 2 mL, IV Univers lipid 06-02 03-09 Push, ity of microsphere 21:00: 16:28 [place]CE[place] 1 [place] 00 :[place] dose, [facility] (DEFINITY) 06/02/20 at Bran ch injection 2 1500, mL Routine Saline Yes [id number] 6mL 6 mL, [facility] rs Bubble 3-09 Injection, ity of Study 20:47: SEE-INSTRU [place] CTIONS, Medical Starting Branch [facility] 06/02/20 at 1447, Until Discontinu ed, Routine paroxetine Yes 10mg Take 10 mg U nivers 10 mg 3-09 by mouth ity of tablet 15:20: daily. [address] paroxetine Yes 10mg Take 10 mg U nivers 10 mg 3-09 by mouth ity of tablet 15:20: daily. [address] paroxetine Yes 10mg Take 10 mg U nivers 10 mg 3-09 by mouth ity of tablet 15:20: daily. [address] paroxetine Yes 10mg Take 10 mg U nivers 10 mg 3-09 by mouth ity of tablet 15:20: daily. [address] paroxetine Yes 10mg Take 10 mg U nivers 10 mg 3-09 by mouth ity of tablet 15:20: daily. [address] paroxetine Yes 10mg Take 10 mg U nivers 10 mg 3-09 by mouth ity of tablet 15:20: daily. [address] paroxetine 0 Yes 10mg Take 10 mg U nivers 10 mg 3-09 by mouth ity of tablet 15:20: daily. [address] Sliding Yes Subcutaneo Univ ers Scale 3-09 us, TID ity of Insulin - 14:00: MEALS+HS, [place] Lispro 00 First dose Medical (HumaLOG) + on [facility] 06/02/20 at Testing 0800, Until Discontinu ed, Routine famotidine Yes 20mg 20 mg, [facility] rs (PEPCID AC) 06-02 Oral, BID, it y of tablet 20 14:00: First dose [place] mg 00 on [facility] Medical 06/02/20 at Branch 0800, Until Discontinu ed, Routine heparin Yes 5000U 5,000 Univers (porcine) 06-02 Units, ity of injection 14:00: Subcutaneo [place] 5,000 Units 00 us, Q12H, Med ical First dose Branch on Mon06/02/20 at 0800, Until Discontinu ed, Routine aspirin 2020- No 325mg 325 mg, Unive rs E.C. 06-02 Oral, ONCE ity of (ECOTRIN) 07:45: 10:15 NOW, 1 [place] tablet 325 00 :00 dose, [facility] Medi alexa mg 06/02/20 at Branch 0145, STAT LORazepam 2020- No 1mg 1 mg, Slow U nivers (ATIVAN) 06-02 IV Push, ity of injection 1 04:45: 04:00 [place]CE, 1 [place] mg 00 :00 dose, [facility] 06/01/20 at Branch 2245, STAT iohexol 2020- No [id number] 100mL 100 mL, U nivers (OMNIPAQUE 06-02 Intravenou it y of 350 03:00: 02:49 s, ONCE, 1 [place] BULK-100 00 :00 dose, [facility] Medica l mL) 06/01/20 at [place] injection 2100, 100 mL Routine paroxetine Yes 10mg Take 10 mg U nivers 10 mg 9-04 by mouth ity of tablet 23:20: daily. [address] naproxen 2017-0 Yes 500mg Take 1 Univer s (NAPROSYN) 9-04 tablet by ity of 500 mg 00:00: mouth 2 [place] tablet 00 (two) Medical times [place] daily with meals. naproxen 2017-0 Yes 500mg Take 1 Univer s (NAPROSYN) [...] 22:20:00 107 mm[Hg] Univer sity of pressure [facility] Diastolic blood 2021-12-06 22:20:00 78 mm[Hg] Unive rsity of pressure [place] [facility] Heart rate 2021-12-06 22:20:00 105 /min Universi ty [facility] [place] [facility] Respiratory rate 2021-12-06 22:20:00 17 /min Univ ersity of [place] [facility] Oxygen saturation in 2021-12-06 22:20:00 98 /min University of Arterial blood by [facility] Pulse oximetry Branch Body temperature 2021-12-06 20:29:00 36.56 Alexandra Univ ersity of [place] [facility] Body height 2021-12-06 20:29:00 167.6 cm [facility]i ty [facility] [place] [facility] Body weight 2021-12-06 20:29:00 83.915 kg [facility]i [facility] [place] [facility] BMI 2021-12-06 20:29:00 29.86 kg/m2 [facility]i ty [facility] [place] [facility] Systolic blood 2021-06-09 22:45:00 120 mm[Hg] Univer sity of pressure [place] [facility] Diastolic blood 2021-06-09 22:45:00 86 mm[Hg] Unive rsity of pressure [place] [facility] Heart rate 2021-06-09 22:45:00 67 /min [facility]i ty [facility] [place] [facility] Respiratory rate 2021-06-09 22:45:00 18 /min Univ ersity of [place] [facility] Oxygen saturation in 2021-06-09 22:45:00 100 /min University of Arterial blood by [facility] Pulse oximetry Branch Body temperature 2021-06-09 18:42:00 37.11 Alexandra Univ ersity of [place] [facility] Body height 2021-06-09 18:42:00 167.6 cm [facility]i ty [facility] [place] [facility] Body weight 2021-06-09 18:42:00 90.719 kg [facility]i ty [facility] [place] [facility] BMI 2021-06-09 18:42:00 32.28 kg/m2 [facility]i [facility] [place] [facility] Systolic blood 2021-02-25 02:00:00 127 mm[Hg] Univer sity of pressure [place] [facility] Diastolic blood 2021-02-25 02:00:00 85 mm[Hg] Unive rsity of pressure [place] [facility] Heart rate 2021-02-25 02:00:00 104 /min [facility]i ty [facility] [place] [facility] Body temperature 2021-02-25 02:00:00 37.44 Alexandra Univ ersity of [place] [facility] Respiratory rate 2021-02-25 02:00:00 21 /min Univ ersity of [facility] Oxygen saturation in 2021-02-25 02:00:00 94 /min University of Arterial blood by [place] [employer] alexa Pulse oximetry Branch Body height 2021-02-24 21:34:00 165.1 cm Universi ty of [facility] Body weight 2021-02-24 21:34:00 92.987 kg Universi ty of [facility] BMI 2021-02-24 21:34:00 34.11 kg/m2 Universi ty of [facility] Systolic blood 2020-06-02 17:44:00 125 mm[Hg] Univer sity of pressure [facility] Diastolic blood 2020-06-02 17:44:00 73 mm[Hg] Unive rsity of [facility] Heart rate 2020-06-02 17:44:00 69 /min Universi ty of [facility] Body temperature 2020-06-02 17:44:00 36.94 Alexandra Univ ersity [facility] Oxygen saturation in 2020-06-02 17:44:00 97 /min University of Arterial blood by [place] [employer] alexa Pulse oximetry Branch Respiratory rate 2020-06-02 13:30:00 15 /min Univ ersity [facility] Body height 2020-06-02 07:07:00 167.6 cm Universi ty [facility] Body weight 2020-06-02 07:07:00 92.08 kg Universi ty of [facility] BMI 2020-06-02 07:07:00 32.77 kg/m2 Universi ty [facility] Systolic blood 2022-08-01 19:39:00 123 mm[Hg] Method [facility] pressure Diastolic blood 2022-08-01 19:39:00 80 mm[Hg] [facility] pressure Heart rate 2022-08-01 19:39:00 84 /min [facility] Body temperature 2022-08-01 19:39:00 36.28 Alexandra [facility] Body height 2022-08-01 19:39:00 167.6 cm [facility] Body weight 2022-08-01 19:39:00 65.772 kg [facility] BMI 2022-08-01 19:39:00 23.40 kg/m2 Methodis t [facility] Procedures Procedure Date / Time Performing Source Performed Clinician MR BRAIN WO CONTRAST 2022-08-30 Marlys Pan [facility] 13:34:[address] HEAD WO CONTRAST 2022-07-29 Marium [facility] f [place] 19:16:00 Medical Branch ASSIGNMENT OF BENEFITS 2022-07-29 Doctor Sean [facility] 18:51:55 [place] Medical Branch XR KUB 2021-12-[address] [facility] 21:01:00 Medical Branch CONSENT/REFUSAL FOR DIAGNOSIS 2021-12-06 Doctor Unasspavel, [facility] AND TREATMENT 20:03:29 [place] Medical [place] POCT TEST 2021-06-09 Huerta, [facility] 19:19:00 Medical Branch XR CHEST 1 VW 2021-06-09 Singer [facility] [place] 19:15:07 Medical Branch LIPASE 2021-06-09 Singer [facility] [place] 18:57:00 Medical Branch TROPONIN I 2021-06-09 [facility] [place] 18:57:00 Medical Branch COMP. METABOLIC PANEL ([id number]) 2021-06-09 Yonny Huerta [facility] 18:57:00 Medical Branch CBC WITH DIFF 2021-06-09 Singer [facility] [place] 18:57:00 Medical Branch PROTHROMBIN TIME / INR 2021-06-09 Singer [facility] 18:57:00 Medical Branch ACTIVATED PARTIAL THRMPLAS 2021-06-09 Singer [facility] ELENITA 18:57:00 Medical Branch HB ECG ROUTINE & RHYTHM STRIP 2021-06-09 Yonny Huerta [facility] 18:49:53 Medical Branch NOTICE OF PRIVACY PRACTICES 2021-06-09 Doctor Sean, [facility] 18:40:08 [place] Medical Branch CONSENT/REFUSAL FOR DIAGNOSIS 2021-06-09 Doctor Andraeigned, [facility] AND TREATMENT 18:38:49 [place] Medical Branch BASIC METABOLIC PANEL (NA, K, 2021-02-25 Cathryn Garsia [facility] CL, CO2, GLUCOSE, BUN, 00:25:00 Medical B ranch CREATININE, CA) CBC WITH DIFF 2021-02-25 Cathryn Garsia [facility] 00:25:00 [facility] Branch D-DIMER 2021-02-25 Cathryn Garsia [facility] 00:25:00 Medical Branch XR CHEST 2 VW 2021-02-24 Singer [facility] 21:56:15 Medical Branch COVID-19 (ID NOW RAPID 2021-02-24 Singer [facility] TESTING) 21:40:00 Medical Branch CONSENT/REFUSAL FOR DIAGNOSIS 2021-02-24 Doctor Unassigned, [facility] AND TREATMENT 21:21:56 [place] [facility] ASSIGNMENT OF BENEFITS 2020-08-11 Doctor Unassigned, [facility] 21:10:39 [place] [facility] POCT GLUCOSE (AUTOMATED) 2020-06-02 Delilah Gresham [facility] 19:11:00 [facility] TRANSTHORACIC ECHO (TTE) 2020-06-02 [facility] COMPLETE W/ CONTRAST 16:35:00 [facility] POCT GLUCOSE (AUTOMATED) 2020-06-02 Delilah Gresham [facility] 15:45:00 [facility] MR STROKE BRAIN WO CONTRAST 2020-06-02 [facility] 11:33:13 [facility] VITAMIN B12, LEVEL 2020-06-02 [facility] 10:22:00 [facility] TEST, SERUM 2020-06-02 [facility] 10:22:00 [facility] FREE T4 2020-06-02 [facility] 10:22:00 [facility] LIPID PANEL ([id number])(TOTAL 2020-06-02 [facility] CHOLESTEROL, TRIGLYCERIDES, 10:22:00 [facility] HDL) ANTI-NUCLEAR ANTIBODY SCREEN 2020-06-02 [facility] 10:22:00 [facility] HOMOCYSTEINE 2020-06-02 [facility] 10:22:00 [facility] FACTOR 5 LEIDEN 2020-06-02 [facility] 10:22:00 [facility] COVID-19 (ID NOW RAPID 2020-06-[address] [facility] TESTING) 03:31:[address] [facility] Branch [address] STROKE ANGIOGRAM HEAD 2020-06-02 Magdalena Blackmon [facility] 02:59:05 [facility] CT STROKE ANGIOGRAM NECK 2020-06-02 Magdalena Blackmon [facility] 02:59:05 [facility] CT STROKE HEAD WO CONTRAST 2020-06-02 Magdalena Blackmon [facility] 02:41:00 [facility] POCT TEST 2020-06-02 Magdalena Blackmon [facility] 02:26:00 [facility] POCT GLUCOSE (AUTOMATED) 2020-06-02 Magdalena Blackmon [facility] 02:21:00 Medical Branch LIPASE 2020-06-02 Magdalena Blackmon [facility] ex 01:40:00 [facility] TROPONIN I 2020-06-02 Magdalena Blackmon [facility] ex 01:40:00 [facility] THYROID STIMULATING HORMONE 2020-06-02 Magdalena Blackmon [facility] 01:40:00 [facility] HEPATIC FUNCTION PANEL 2020-06-[address] [facility] ([id number]) (ALB,T.PRO,BILI 01:40:00 Medical Branch T,BU/BC,ALT,AST,ALK PHOS) BASIC METABOLIC PANEL (NA, K, 2020-06-02 Magdalena Blackmon [facility] CL, CO2, GLUCOSE, BUN, 01:40:00 [facility] ranch CREATININE, CA) CBC WITH DIFF 2020-06-02 Magdalena Blackmon [facility] exas 01:40:00 [facility] GLYCOSYLATED HEMOGLOBIN (A1C) 2020-06-02 [facility] 01:40:00 [facility] PROTHROMBIN TIME / INR 2020-06-02 Magdalena Blackmon [facility] 01:40:00 [facility] D-DIMER 2020-06-02 [facility] 01:40:00 Medical Branch ACTIVATED PARTIAL THRMPLAS 2020-06-02 Magdalena Blackmon [facility] 01:40:00 Medical Branch URINALYSIS 2020-06-02 [facility] [place] 01:40:00 Nelievettea [facility] N-TERMINAL PRO-BNP 2020-06-[address] [facility] 01:40:00 Medical Branch ADC / LCC - DRUG SCREEN 2020-06-02 Magdalena Blackmon [facility] TRIAGE 01:40:00 Medical Branch HB ECG ROUTINE & RHYTHM STRIP 2020-06-02 Magdalena Blackmon [facility] 01:34:59 Medical Branch CONSENT/REFUSAL FOR DIAGNOSIS 2020-06-02 Doctor Unassigned, [facility] AND TREATMENT 01:17:58 [place] [facility] ELECTROENCEPHALOGRAM 2020-06-02 Shayan Cespedes, [facility] 00:00:00 [facility] AGREEMENTS AUTHORIZATIONS AND 2020-06-01 Doctor Unasspavel, [facility] IRREVOCABLE ASSIGNMENTS (FORM 06:01:00 [place] Wy dical Branch 2000) HOSPITAL ADMISSION 2020-06-01 Doctor Unasspavel, [facility] 06:01:00 [place] [facility] XR CHEST 2 VW COVID 2020-04-07 Requisition, Paper [facility] 20:02:22 [facility] Plan of Care Planned Activity Planned Date Details Comments Source Future Scheduled 2022-08-24 [facility]-19 [facility]ACCINE [facility] 10:55:48 (#1) [code = COVID-19 VACCINE (#1)] Future Scheduled 2022-08-24 [facility]atitis [facility] 10:55:48 screening (procedure) [code = 111832475] Future Scheduled 2022-08-24 [facility] Test 10:55:48 malignant neoplasm of cervix (procedure) [code = 721005375] Future Scheduled 2022-08-24 BREAST CANCER [facility] Test 10:55:48 SCREENING [code = BREAST CANCER SCREENING] Future Scheduled 2022-08-24 [facility] Test 10:55:48 malignant neoplasm of colon (procedure) [code = 228690645] Future Scheduled 2022-08-24 INFLUENZA VACCINE [facility] Test 10:55:48 [code = INFLUENZA VACCINE] Encounters Start End Encounter Admission Attending Care Care Encounter Source Date/Time Date/Time Type Type Clinicians Facility Department ID 2021-07-15 Outpatient [facility] [id number] [place] 09:44:36 [id number] [facility] 2021-01-24 Emergency [facility] [id number] [facility] 04:18:07 ity [facility] 2022-08-30 2022-08-30 Hospital Sang [facility] [id number] [facility] 07:25:26 23:59:00 [id number] [facility] [id number] [facility] [address] [place] [address] 2022-08-30 2022-08-30 Outpatient R SANG [facility] [id number] [facility] 07:25:25 23:59:00 [facility] 2022-08-01 2022-08-01 Office Cruz, [id number] Methodi 15:00:00 15:27:02 Visit Emily [id number] [id number] l .8 2022-08-01 2022-08-01 Outpatient [facility] [id number] [place] 00:00:00 00:00:00 EMILY [address] 2022-08-01 2022-08-01 Travel 1.2.840.1 1.2.392.357 [id number] Methodi 00:00:00 00:00:[address] 3.430.2.7 0.2.7.3.698 spita .3.767754 084.8 l .8 2022-07-29 2022-07-29 Outpatient R RADIOLOGY [facility] [id number] Univers 13:53:38 23:59:00 ity [facility] 2022-07-29 2022-07-29 Hospital Radiology [facility] 1.2.840.114 [id number] Univers 13:25:00 23:59:00 Encounter [place] 350.1.13.10 ity of [place] 4.2.7.2.686 [facility] [id number] [facility] [address] 2022-07-29 2022-07-29 Orders Doctor LAWRENCE 1.2.840.114 [id number] Univers 00:00:00 00:00:00 Only Unassigned, [place] 350.1.13.10 ity of [place] [facility] 4.2.7.2.686 Carlos as [id number] [address] 2021-12-06 2021-12-06 Emergency [facility] [id number] Univers 15:32:00 17:39:00 ROMI y [facility] 2021-12-06 2021-12-06 Emergency DylanFormerly [facility] 1.2.840.114 [id number] Univers 15:32:00 17:39:00 [facility] 350.1.13.10 i ty of [place] 4.2.7.2.686 [facility] [id number] [facility] [address] 2021-06-09 2021-06-09 Emergency [facility] [id number] Univers 13:46:00 18:36:00 [facility] 2021-06-09 2021-06-09 Emergency [facility] 1.2.635.376 [id number] Univers 13:46:00 18:36:00 [facility] BUDDY 350.1.13.10 i ty of [place] 4.2.7.2.686 [facility] [id number] [facility] [address] 2021-06-09 2021-06-09 Orders Doctor BRAVO 1.2.840.114 [id number] Univers 00:00:00 00:00:00 Only Unassigned, [place] 350.1.13.10 ity of [place] [facility] 4.2.7.2.686 Carlos as [id number] [address] 2021-02-24 2021-02-24 Emergency [facility] [id number] Univers 15:46:00 20:45:00 CATHRYN ity [facility] 2021-02-24 2021-02-24 Emergency Corinne [facility] 1.2.953.686 [id number] Univers 15:46:00 20:45:00 Cathryn S [place] 350.1.13.10 i ty of [place] 4.2.7.2.686 [facility] [id number] [facility] [address] 2020-08-11 2020-08-11 [facility] Radiology [facility] 1.2.840.114 [id number] Univers 16:12:09 23:59:00 Encounter [place] 350.1.13.10 ity of [place] 4.2.7.2.686 [facility] [id number] [facility] [address] 2020-08-11 2020-08-11 Outpatient R RADIOLOGY [facility] [id number] Univers 00:00:00 00:00:00 ity of [facility] 2020-08-11 2020-08-11 Orders Doctor LAWRENCE 1.2.840.114 [id number] Univers 00:00:00 00:00:00 Only Unassigned, [place] 350.1.13.10 ity of [place] [facility] 4.2.7.2.686 Carlos as [id number] [facility] [address] 2020-06-01 2020-06-02 [facility] Magdalena Blackmon 1.2.840. 114 [id number] Univers 19:27:00 15:00:00 Encounter Delilah Gresham 350.1.13.10 ity of [facility] 4.2.7.2.686 Carlos as [id number] [facility] [address] 2020-05-05 2020-05-05 Emergency X CORINNE, [facility] ERT [id number] Univers 12:19:00 12:19:00 CATHRYN ity of [facility] 2020-04-07 2020-04-07 Hospital Radiology [facility] 1.2.840.114 [id number] Univers 13:50:35 23:59:00 Encounter [place] 350.1.13.10 ity of [place] 4.2.7.2.686 [facility] [id number] [facility] [address] 2020-04-07 2020-04-07 Outpatient R RADIOLOGY [facility] [id number] Univers 00:00:00 00:00:00 [facility] 2020-01-23 2020-01-24 Outpatient Nelsy ARROYO, [facility] MED 7501 [facility] 10:33:00 12:44:00 PETER Results Test Description Test Time Test Comments Results Result Comments Source TROPONIN I 2021-06-09 19:59:02 Test Item Value Reference Range Interpretation Comme nts TROPONIN I (test code = 0.001 ng/mL See_Comment [Au tomated message] The 8208227782) system which ge nerated this result tra [...] biotin. Lab Interpretation Normal (test code = 86534-3) [facility] METABOLIC PANEL (76229)2021-06-09 19:48:18 Test Item Value Reference Range Interpretation Comments NA (test code = 138 mmol/L 135-145 4918631045) K (test code = 4.1 mmol/L 3.5-5.0 8176348703) CL (test code = 102 mmol/L 98-108 6624290070) CO2 TOTAL (test code 27 mmol/L 23-31 = 1488671462) AGAP (test code = 2-16 3260983986) BUN (test code = 10 mg/dL 7-23 4443576618) GLUCOSE (test code = 83 mg/dL 70-110 0810925630) CREATININE (test code 0.71 mg/dL 0.50-1.04 = 7346497436) TOTAL BILI (test code 0.5 mg/dL 0.1-1.1 = 3299487728) CALCIUM (test code = 9.1 mg/dL 8.6-10.6 3720449050) T PROTEIN (test code 7.4 g/dL 6.3-8.2 = 1963292267) ALBUMIN (test code = 4.6 g/dL 3.5-5.0 1506316845) ALK PHOS (test code = 78 U/L 34-122 9415318263) ALTv (test code = 14 U/L 5-35 1742-6) AST(SGOT) (test code 23 U/L 13-40 = 3390024318) eGFR (test code = mL/min/1.73m2 4510513027) MARIAM (test code = MARIAM) Association of [...] or urine or abnormalities in imaging tests). [facility] BranchLIPASE, [id number] 19:47:42 Test Item Value Reference Range Interpretation Comments LIPASE (test code = 1598859436) 83 U/L 0-220 Lab Interpretation (test code = Normal 95068-8) [facility] TexasaPTT2022-03-16 19:45:01 Test Item Value Reference Range Interpretation Comments APTT Patient (test See_Comment [Automat ed code = 3173-2) message] The system which generated this result transmitted reference range : 23 - 38 Seconds . The reference range was not used to interpr et this result as normal/abnormal . MARIAM (test code = MARIAM) The [facility] patient population mean normal value for aPTT is 30 seconds. Lab Interpretation Normal (test code = 19268-4) [facility] TexasPROTHROMBIN TIME / [id number] 19:42:59 Test Item Value Reference Range Interpretation Comments PROTIME PATIENT (test See_Comment [Auto mated message] code = 5964-2) The system [employer] generated this result transmitted ref erence range: 12.0 - 1 4.7 Seconds. The re ference range was not u sed to interpret this result as normal/abnor mal. INR (test code = 6301-6) Nor mal INR <1.1; Warfarin Therap eutic range 2.0 to 3. 0 or 2.5 to 3.5, dep ending upon the indica tions. Lab Interpretation (test Normal code = 57977-7) [facility] TexasCBC WITH [id number] 19:35:16 Test Item Value Reference Range Interpretation Comments WBC (test code = See_Comment [Automated message] 6690-2) The system [employer] generated this result transmitted ref erence range: 4.30 - 1 1.10 10*3/?L. The re ference range was not u sed to interpret this result as normal/abnor mal. RBC (test code = See_Comment [Automated message] 789-8) The system [employer] generated this result transmitted ref erence range: [...] RDW-SD (test code 44.7 fL 39.0-49.9 = 36235-3) RDW-CV (test code 12.8 % 12.0-15.5 = 788-0) PLT (test code = See_Comment [Automated message] 777-3) The system whic h generated this result transmitted ref erence range: 166 - 35 8 10*3/?L. The re ference range was not u sed to interpret this result as normal/abnor mal. MPV (test code = 9.7 fL 9.5-12.9 89402-8) NRBC/100 WBC (test See_Comment [Automat ed message] code = 4218337665) The syste m which generated this result transmitted ref erence range: 0.0 - 10 .0 /100 WBCs. The refer ence range was not u sed to interpret this result as normal/abnor mal. NRBC x10^3 (test <0.01 See_Comment [Automated message] code = 5983714827) The syste m which generated this result transmitted ref erence range: 10*3/?L. The reference range was not used to interpr et this result as normal/abnormal . GRAN MAT (NEUT) % 57.6 % (test code = 770-8) IMM GRAN % (test 0.20 % code = 9410992381) LYMPH % (test code 32.6 % = 736-9) MONO % (test code 7.7 % = 5905-5) EOS % (test code = 1.3 % 713-8) BASO % (test code 0.6 % = 706-2) GRAN MAT 3.08 10*3/uL 1.88-7.09 x10^3(ANC) (test code = 0086432949) IMM GRAN x10^3 <0.03 0.00-0.06 (test code = 0155698596) LYMPH x10^3 (test 1.74 10*3/uL 1.32-3.29 code = 731-0) MONO x10^3 (test 0.41 10*3/uL 0.33-0.92 code = 742-7) EOS x10^3 (test 0.07 10*3/uL 0.03-0.39 code = 711-2) BASO x10^3 (test 0.03 10*3/uL 0.01-0.07 code = 704-7) [facility] TexasPOCT [id number] 19:19:00 Test Item Value Reference Range Interpretation Comments POCT PREG (test code = 1605) Negative On board controls acceptable with Postive C Line (test code = 3574) POCT PREG LOT # (test code = 3575) [id number] POCT PREG TEST DATE (test 05/24/2022 code = 3576) Lab Interpretation (test code = Normal 86922-3) [facility] TexasD-[id number] 01:07:30 Test Item Value Reference Interpretation Comments Range D-DIMER (test code = See_Comment [Autom ated 9729578890) message] The system which generated this result [...] diagnosis. Lab Interpretation Normal (test code = 29896-8) [facility] METABOLIC PANEL (NA, K, CL, CO2, GLUCOSE, BUN, CREATININE, CA)2021-02-25 01:06:48 Test Item Value Reference Range Interpretation Comments NA (test code = 131 mmol/L 135-145 L 9130311035) K (test code = 4.3 mmol/L 3.5-5.0 2957556325) CL (test code = 100 mmol/L 98-108 4469502203) CO2 TOTAL (test code = 22 mmol/L 23-31 L 5788484169) AGAP (test code = 2-16 4149213544) BUN (test code = 9 mg/dL 7-23 2584026725) GLUCOSE (test code = 95 mg/dL 70-110 8220203778) CREATININE (test code = 0.78 mg/dL 0.50-1.04 6275625095) CALCIUM (test code = 9.3 mg/dL 8.6-10.6 7817185362) eGFR (test code = mL/min/1.73m2 9390792317) MARIAM (test code = MARIAM) Association of [...] tests). Lab Interpretation Abnormal (test code = 31709-5) [facility] WITH [id number] 00:59:51 Test Item Value Reference Range Interpretation [...] RDW-SD (test code = 42.3 fL 39.0-49.9 95042-6) RDW-CV (test code = 12.3 % 12.0-15.5 788-0) PLT (test code = See_Comment [Automated 777-3) message] The sy stem which generated this result transmitted reference range : 166 - 358 10*3/ ?L. The reference r belkis was not used to interpret this result as normal/abnormal . MPV (test code = 9.6 fL 9.5-12.9 06379-3) NRBC/100 WBC (test See_Comment [Automat ed code = 2320587580) message] The system which generated this result transmitted reference range : 0.0 - 10.0 /100 WBCs. The refer ence range was not u sed to interpret th is result as normal/abnormal . NRBC x10^3 (test code <0.01 See_Comment [Auto mated = 6654601128) message] The s ystem which generated this result transmitted reference range : 10*3/?L. The reference range was not used to interpret this result as normal/abnormal . GRAN MAT (NEUT) % 76.7 % (test code = 770-8) IMM GRAN % (test code 0.50 % = 2179986645) LYMPH % (test code = 12.0 % 736-9) MONO % (test code = 8.9 % 5905-5) EOS % (test code = 1.4 % 713-8) BASO % (test code = 0.5 % 706-2) GRAN MAT x10^3(ANC) 5.00 10*3/uL 1.88-7.09 (test code = 7675892020) IMM GRAN x10^3 (test 0.03 10*3/uL 0.00-0.06 code = 4441424941) LYMPH x10^3 (test code 0.78 10*3/uL 1.32-3.29 L = 731-0) MONO x10^3 (test code 0.58 10*3/uL 0.33-0.92 = 742-7) EOS x10^3 (test code = 0.09 10*3/uL 0.03-0.39 711-2) BASO x10^3 (test code 0.03 10*3/uL 0.01-0.07 = 704-7) Lab Interpretation Abnormal (test code = 72115-0) [facility] TexasSCR MAMM BILATERAL PATY CAD [id number] 14:36:56Name: Jelena : 1975 Sex: F - SCR MAMM BILATERAL PATY CAD DIGITALBILATERAL DIGITAL SCREENING MAMMOGRAM 3D/2D WITH CAD: 09/16/2020LINICAL: Asymptomatic. Digital breast tomosynthesis was performed in addition to routine CC and MLO views. Current mammographic images were evaluated by [employer] ImageChecker CAD (computer-aided detection) software. Comparison is made to exams [facility], and 07/02/2012 mammogram - [facility]. There are scattered fibroglandular tissues in both breasts. There are benign calcifications in the right breast. No suspicious mass, architectural distortion, malignant type calcification, or lymph node abnormality detected. Breast architecture is stable compared to prior exams.IMPRESSION: BENIGNThere is no mammographic evidence of malignancy. Resume annual screening mammography in one year. Jennifer Park M.D. scg/penrad:09/21/2020 14:36:56 Manager Pest: Jessica Gomez MM, [facility] Mammographyletter sent: BIRADS 1-2 Normal Mammogram BI-RADS: 2 BenignAnti-Nuclear Antibody [id number] 19:38:26 Test Item Value Reference Range Interpretation Comments RADHA (test code = Positive Negative A 8897114113) MARIAM (test code = MARIAM) Negative - [...] separately. Lab Interpretation (test Abnormal code = 67037-9) [facility] GLUCOSE (AUTOMATED)2020-06-02 19:12:26 Test Item Value Reference Range Interpretation Comments POCT GLU (test code = 5065454805) 89 mg/dL 70-110 Lab Interpretation (test code = Normal 99367-7) [facility] GLUCOSE (AUTOMATED)2020-06-02 15:51:17 Test Item Value Reference Range Interpretation Comments POCT GLU (test code = 7388078126) 183 mg/dL 70-110 H Lab Interpretation (test code = Abnormal 77437-5) [facility] TexasFACTOR 5 [id number] 15:43:58 Test Item Value Reference Range Interpretation Comments FACTOR 5 LEIDEN Normal Normal (test code = 0214623537) MARIAM (test code = Phenotype Characteristics: MARIAM) [...] the Factor 5 Leiden mutation is c.1601G>A (p.Ehs274Swo). Methodology: Polymerase chain reaction and fluorescence monitoring. Limitations: Rare Factor V mutations (Y4647L, M9648J, and A4632Q) and any additional SNPs in the probe binding region may interfere with the target detection and yield an INVALID result. The performance of this assay has not been evaluated with samples from pediatric patients. Counseling and informed consent are recommended for genetic testing. References: OMIM: 166292 https://ghr.nlm.nih.gov/co ndition/ssefbw-g-xzckcu-[facility] HospitalMR STROKE BRAIN WO [id number] 13:56:06 No acute intracranial abnormality. EXAMINATION: MR [...] Left sphenoid sinus mucosal thickening.IMPRESSIONNo acute intracranial abnormality.[facility] TexasGLYCOSYLATED HEMOGLOBIN (A1C)2020-06-02 12:28:07 Test Item Value Reference Range Interpretation Comments HGB A1C (test code = 5.5 % 4.0-6.0 4548-4) MARIAM (test code = MARIAM) %A1C (NGSP) Interpretation (ADA)4.8-5.6 ? ? Normal or (Non-Diabetic Range)5.7-6.4 ? ? Increased Risk (Pre-Diabetic)>6.5 ?Diabetes Indicated Lab Interpretation Normal (test code = 21804-4) [facility] TexasVITAMIN B12, [id number] 12:12:36 Test Item Value Reference Range Interpretation Comments VIT B12 (test code = 349 pg/mL 240-930 0205216835) MARIAM (test code = MARIAM) Biotin has been reported to cause a positive bias, interpret results relative to patient's use of biotin. Lab Interpretation (test Normal code = 04607-5) [facility] TexasFREE [id number] 11:40:12 Test Item Value Reference Range Interpretation Comments FREE T4 (test code = See_Comment [Autom ated message] 0571562404) The system [employer] generated this result transmitted ref erence range: 0.78 - 2 .20 ng/dL:. The ref erence range was not u sed to interpret this result as normal/abnor mal. Lab Interpretation (test Normal code = 46736-6) [facility] TexasHOMOCYSTEINE2021-03-09 11:29:55 Test Item Value Reference Range Interpretation Comments Homocysteine (test code = 6.2 umol/L 4.7-12.6 1670636284) Lab Interpretation (test code = Normal 05132-6) [facility] TexasFASTING LIPID PANEL (61610)(TOTAL CHOLESTEROL, TRIGLYCERIDES, HDL)2020-06-02 11:12:32 Test Item Value Reference Range Interpretation Comments CHOL (test code = 160 mg/dL 120-200 5873338389) HDL (test code = 41 mg/dL >50 L 6213368870) HDLC RATIO (test code = See_Comment [Au tomated message] 4906172250) The system [employer] generated this result transmit [place] reference range : <=4.5. The refe rence range was not u sed to interpret th is result as normal/abnormal . TRIG (test code = 67 mg/dL 30-170 8091380726) LDL CHOL (test code = 106 mg/dL See_Comment [Auto mated message] 35060-4) The system [employer] generated this result transmit [place] reference range : <=160. The refe rence range was not u sed to interpret th is result as normal/abnormal . VLDL (test code = 13 mg/dL 5-60 7214361237) Lab Interpretation (test Abnormal code = 09017-7) [facility] TexasPregnancy Test, [id number] 11:10:36 Test Item Value Reference Range Interpretation Comments PREG SERUM (test code Negative = 4253440021) MARIAM (test code = MARIAM) Less than 10 IU/L. ?If low titer or ectopic is suspected, resubmit specimen in 48-72 hours. [facility] TexasUrinalysis2021-03-09 09:14:26 Test Item Value Reference Range Interpretation Comments APPEARANCE (test code = Clear Clear 7755583536) COLOR (test code = Straw Yellow A 7964397509) PH (test code = 4.8-8.0 5302825359) SP GRAVITY (test code = 1.003-1.030 8073788171) GLU U QUAL (test code = Normal Normal 0053526904) BLOOD (test code = Negative Negative 2870314907) KETONES (test code = Negative Negative 0627062084) PROTEIN (test code = Negative Negative 2887-8) UROBILIN (test code = Normal Normal 0382150228) BILIRUBIN (test code = Negative Negative 5011083697) NITRITE (test code = Negative Negative 8797805808) LEUK SIENNA (test code = Negative Negative 8973270390) RBC/HPF (test code = <1 See_Comment [Autom ated message] 0736673387) The system [employer] generated this result transmitted ref erence range: 0 - 3 HP F. The reference range was not used to int erpret this result as normal/abnormal . WBC/HPF (test code = See_Comment [Autom ated message] 1543739581) The system [employer] generated this result transmitted ref erence range: 0 - 5 HP F. The reference range was not used to int erpret this result as normal/abnormal . BACTERIA (test code = Few Negative A 5758679268) SQ EPITH (test code = HPF 5354497649) Lab Interpretation (test Abnormal code = 58629-0) [facility] TexasCOVID-19 (ID NOW RAPID TESTING)2020-06-02 03:50:18 Test Item Value Reference Range Interpretation Comments SARS-CoV-2 Rapid ID NOW Not Detected Not Detected (test code = 30923-6) MARIAM (test code = MARIAM) ID NOW COVID-19 Assay is an isothermal nucleic acid amplification test intended for the qualitative detection of nucleic acid from SARS-CoV-2 viral RNA in nasopharyngeal (TYPING SECTION CHIEF) specimens. It is used under Emergency Use [...] indicated. Lab Interpretation Normal (test code = 23411-2) [facility] TexasCT STROKE ANGIOGRAM [id number] 03:32:32 CT head and neck angiograms are [...] and sagittal MIPSreformats are provided. COMPARISON: ?None [place] FINDINGS: The PICA origin is visualized bilaterally. The basilar artery is normal incaliber. The superior cerebellar arteries are unremarkable. The posteriorcerebral arteries are unremarkable. The large and of the right [employer] isnoted. A small left posterior communicating artery [...] unremarkable. The large and of the right [employer] isnoted. A small left posterior communicating artery [...] this study and agree with theabove report. [facility] TexasCT STROKE ANGIOGRAM [id number] 03:32:32 CT head and neck angiograms are [...] and sagittal MIPSreformats are provided. COMPARISON: ?None [place] FINDINGS: The PICA origin is visualized bilaterally. The basilar artery is normal incaliber. The superior cerebellar arteries are unremarkable. The posteriorcerebral arteries are unremarkable. The large and of the right [employer] isnoted. A small left posterior communicating artery [...] unremarkable. The large and of the right [employer] isnoted. A small left posterior communicating artery [...] this study and agree with theabove report. [facility] TexasACTIVATED PARTIAL THRMPLAS [id number] 03:13:16 Test Item Value Reference Range Interpretation Comments APTT Patient (test See_Comment [Automat ed code = 3173-2) message] The system which generated this result transmitted reference range : 23 - 38 Seconds . The reference range was not used to interpr et this result as normal/abnormal . MARIAM (test code = MARIAM) The [facility] patient population mean normal value for aPTT is 30 seconds. Lab Interpretation Normal (test code = 70636-4) [facility] TexasPROTHROMBIN TIME / [id number] 03:11:16 Test Item Value Reference Range Interpretation Comments PROTIME PATIENT (test See_Comment [Auto mated message] code = 5964-2) The system [facility] generated this result transmitted ref erence range: 12.0 - 1 4.7 Seconds. The re ference range was not u sed to interpret this result as normal/abnor mal. INR (test code = 6301-6) Nor mal INR <1.1; Warfarin Therap eutic range 2.0 to 3. 0 or 2.5 to 3.5, dep ending upon the indica tions. Lab Interpretation (test Normal code = 17502-8) [facility] TexasTHYROID STIMULATING [id number] 02:57:31 Test Item Value Reference Range Interpretation Comments TSH (test code = See_Comment H [Automated message] 1167258884) The system [facility] generated this result transmitted ref erence range: 0.45 - 4 .70 mIU/L. The refe rence range was not u sed to interpret this result as normal/abnor mal. Lab Interpretation (test Abnormal code = 90506-1) [facility] TexasCT STROKE HEAD WO [id number] 02:52:[address] STROKE HEAD WO [...] seen in the visualizedparanasal air sinuses.IMPRESSIONNormal CT headUnAscension [facility] AustinUrinalysis 2020-06-02 02:51:32 Test Item Value Reference Range Interpretation Comments APPEARANCE (test code = Clear Clear 5200256582) COLOR (test code = Straw Yellow A 1160942835) PH (test code = 4.8-8.0 1159369912) SP GRAVITY (test code = 1.003-1.030 5101729855) GLU U QUAL (test code = Normal Normal 1764332380) BLOOD (test code = Negative Negative 0287421559) KETONES (test code = Negative Negative 1384906748) PROTEIN (test code = Negative Negative 2887-8) UROBILIN (test code = Normal Normal 2705556363) BILIRUBIN (test code = Negative Negative 8036186951) NITRITE (test code = Negative Negative 6974940967) LEUK SIENNA (test code = Negative Negative 2438607925) RBC/HPF (test code = See_Comment [Autom ated message] 4675355179) The system [employer] generated this result transmitted ref erence range: 0 - 3 HP F. The reference range was not used to int erpret this result as normal/abnormal . WBC/HPF (test code = <1 See_Comment [Autom ated message] 4402701436) The system [employer] generated this result transmitted ref erence range: 0 - 5 HP F. The reference range was not used to int erpret this result as normal/abnormal . BACTERIA (test code = Few Negative A 4829707674) SQ EPITH (test code = HPF 0435736009) HYAL CAST (test code = See_Comment [Aut omated message] 2613601235) The system [employer] generated this result transmitted ref erence range: <=2 LPF. The reference range was not used to int erpret this result as normal/abnormal . Lab Interpretation (test Abnormal code = 17727-1) [facility] [id number] 02:39:06 Test Item Value Reference Range Interpretation Comments TROPONIN I (test 0.002 ng/mL See_Comment [Automated code = 4022861832) message] The system which generated this result [...] ? Lab Interpretation Normal (test code = 08969-9) [facility] TexasN-TERMINAL NUT-[id number] 02:35:47 Test Item Value Reference Range Interpretation Comments NT-proBNP (test code 41 pg/mL See_Comment [Autom ated = 7721684686) message] The system which generated this result transmitted reference range : <=125. The reference range was not used to interpret this result as normal/abnormal . MARIAM (test code = MARIAM) Biotin has been reported to cause a negative bias, interpret results relative to patient's use of biotin. Lab Interpretation Normal (test code = 91601-9) [facility]2020-06-02 02:35:07 Test Item Value Reference Range Interpretation Comments POCT GLU (test code = 7327573862) 90 mg/dL 70-110 Lab Interpretation (test code = Normal 41130-6) [facility] [place] (NA, K, CL, CO2, GLUCOSE, BUN, CREATININE, CA)2020-06-02 02:27:04 Test Item Value Reference Range Interpretation Comments NA (test code = 137 mmol/L 135-145 6123327253) K (test code = 3.5 mmol/L 3.5-5.0 8038426974) CL (test code = 100 mmol/L 98-108 9029359068) CO2 TOTAL (test code = 27 mmol/L 23-31 8408694381) AGAP (test code = 2-16 3030719533) BUN (test code = 12 mg/dL 7-23 0708688434) GLUCOSE (test code = 92 mg/dL 70-110 4815913914) CREATININE (test code 0.70 mg/dL 0.50-1.04 = 3695138201) CALCIUM (test code = 9.1 mg/dL 8.6-10.6 6531765434) eGFR Calculation mL/min/1.73m2 (Non-) (test code = 9924140545) eGFR Calculation mL/min/1.73m2 () (test code = 1856091949) MARIAM (test code = MARIAM) Association of [...] or urine or abnormalities in imaging tests). [facility] (ALB, T.PRO, BILI T, BU/BC, ALT, AST, ALK PHOS)2020-06-02 02:27:04 Test Item Value Reference Range Interpretation Comments TOTAL BILI (test code = 4742384786) 0.5 mg/dL 0.1-1.1 BILI UNCON (test code = 3676313922) 0.4 mg/dL 0.1-1.1 BILI CONJ (test code = 6746292190) 0.0 mg/dL 0.0-0.3 T PROTEIN (test code = 9809310294) 7.8 g/dL 6.3-8.2 ALBUMIN (test code = 1944170556) 4.8 g/dL 3.5-5.0 ALK PHOS (test code = 4293458666) 85 U/L 34-122 ALTv (test code = 1742-6) 24 U/L 5-35 AST(SGOT) (test code = 0960960705) 27 U/L 13-40 Lab Interpretation (test code = Normal 11255-8) [facility] TexasLipase [id number] 02:26:49 Test Item Value Reference Range Interpretation Comments LIPASE (test code = 0091109395) 72 U/L 0-220 Lab Interpretation (test code = Normal 09153-7) [facility] [id number] 02:26:00 Test Item Value Reference Range Interpretation Comments POCT PREG (test code = 1605) negative On board controls acceptable with present C Line (test code = 3574) POCT PREG LOT # (test code = 3575) [id number] POCT PREG TEST DATE (test 2021-12-24 code = 3576) Lab Interpretation (test code = Normal 52903-5) [facility] TexasD-[id number] 02:23:46 Test Item Value Reference Interpretation Comments Range D-DIMER (test code = See_Comment H [Autom ated 2217949182) message] The system which generated this result [...] diagnosis. Lab Interpretation Abnormal (test code = 95496-4) [facility] / [facility] - DRUG SCREEN [id number] 02:21:13 Test Item Value Reference Range Interpretation Comments BENZO U (test code = Negative Negative 8905343103) KAYLEE U (test code = Negative Negative 7485151991) AMPHET (test code = Negative Negative 3079479871) THC (test code = Negative Negative 9526745266) METHADONE (test code = Negative Negative 5674998147) Meth U (test code = Negative Negative 1296479555) OPIATES (test code = Negative Negative 3006691858) Cocaine Metabolite (test Negative Negative code = 6273913596) PROPOXY (test code = Negative Negative 1193591571) Tric U (test code = Negative Negative 8232409589) PCP (test code = Negative Negative 7764429490) OXYCOD (test code = Negative Negative 0420211269) MARIAM (test code = MARIAM) Urine Drug [...] testing). Lab Interpretation (test Normal code = 22408-0) [facility] with [id number] 02:16:05 Test Item Value Reference Range Interpretation [...] RDW-SD (test code = 41.4 fL 39.0-49.9 62807-2) RDW-CV (test code = 11.9 % 12.0-15.5 L 788-0) PLT (test code = See_Comment [Automated 777-3) message] The sy stem which generated this result transmitted reference range : 166 - 358 10*3/ ?L. The reference r belkis was not used to interpret this result as normal/abnormal . MPV (test code = 9.9 fL 9.5-12.9 16336-3) NRBC/100 WBC (test See_Comment [Automat ed code = 1641282743) message] The system which generated this result transmitted reference range : 0.0 - 10.0 /100 WBCs. The refer ence range was not u sed to interpret th is result as normal/abnormal . NRBC x10^3 (test code <0.01 See_Comment [Auto mated = 6891263729) message] The s ystem which generated this result transmitted reference range : 10*3/?L. The reference range was not used to interpret this result as normal/abnormal . GRAN MAT (NEUT) % 58.1 % (test code = 770-8) IMM GRAN % (test code 0.40 % = 4611320371) LYMPH % (test code = 31.9 % 736-9) MONO % (test code = 8.1 % 5905-5) EOS % (test code = 1.0 % 713-8) BASO % (test code = 0.5 % 706-2) GRAN MAT x10^3(ANC) 4.66 10*3/uL 1.88-7.09 (test code = 0311483996) IMM GRAN x10^3 (test 0.03 10*3/uL 0.00-0.06 code = 9938743595) LYMPH x10^3 (test code 2.56 10*3/uL 1.32-3.29 = 731-0) MONO x10^3 (test code 0.65 10*3/uL 0.33-0.92 = 742-7) EOS x10^3 (test code = 0.08 10*3/uL 0.03-0.39 711-2) BASO x10^3 (test code 0.04 10*3/uL 0.01-0.07 = 704-7) Lab Interpretation Abnormal (test code = 90676-5) [facility]ro[facility] (EEG) - Duration of test: 20-60 [id number] 00:00:00Date and Time of Procedure: 06/02/2020, 11:11:39- [...] occur. Marie Ayala MD Date of interpretation: 06/02/2020[facility] 2 VW COVID 2020-04-07 20:06:04No signs of acute cardiopulmonary disease. Disclaimer: Generally, the findings on chest imaging in COVID-19 are notspecific, and overlap with other infections, including influenza, H1N1,SARS and MERS.According to the Centers for Disease Control (CDC) and the [employer], viral testingremains the only specific method of diagnosiseven if CXR or CT findings are suggestive of COVID-19. PROCEDURE: CHEST XRAY CLINICAL INDICATION: Bronchitis, not specified as acute or chronic COMPARISON: Previous study of 03/09/2015. FINDINGS: Lungs: Clear Pleura: No pleural effusion or pneumothorax is seen. The heart is normal insize. Cardiothoracic ratio is 12.4/29.0 cm. No acute bony abnormality. [facility], Radiant Results Inft User - 04/07/2020 2:07 [...] Centers for Disease Control (CDC) and the [employer], viral testing remains the only specific method of diagnosiseven if CXR or CT findings are suggestive of COVID-19.[facility] TexasPELVIC [id number] 17:07:00 RUN DATE: 11/29/18 [facility] PAGE 1 RUN TIME: 1820 Specimen Inquiry RUN USER: INTERFACE --PATIENT: JELENA US LOC: LETY U #: [id number] AGE/SX: 43/F ROOM: [facility] RE11/27/18REG DR: Nicolle Draper MD : 77 BED: A DIS: 11/28/18 STATUS: DIS Jr TLOC: SPEC #: [id number] RECD: 11/27/18 STATUS: KIM ARREDONDO #: [id number] CHRISTINA: 11/27/18- SUBM DR: Nicolle Draper MD ENTERED: 11/28/18 SPTYPE: P[facility]IC [facility] DR: ORDERED: LEVEL IV/4 CODES: R93636 - UTERUS, NOS H72238 - FALLOPIAN TUBE UZ9626 - PELVIC GENITAL PROCEDURES: LEVEL IV (Incomplete) [...] with focal benign endometrial replacement CPT code(s): 47384 x3, 54315 [facility] 11/29/18 CONTINUED ON NEXT PAGE RUN DATE: 11/29/18 [facility] PAGE 2 RUN TIME: 1819 Specimen Inquiry RUN USER: INTERFACE SPEC #: [id number] PATIENT: JELENA US #[id number] (Continued)-------- ---- GROSS DESCRIPTION ANATOMIC SOURCE OF TISSUE (per [...] is trabeculated. There are no identifiable excrescences. Police Liaison sections submitted as B1. Specimen #3is designated "posterior culdesac endometriosis" and consists of [...] and slightly nodular with a few adhesions. The4 cm ectocervix displays a central 1 cm [...] additional endometrium and serosal adhesions, D5 - underwriting sales representative sections of right fallopian tube, D6 - underwriting sales representative sections of left fallopian tube. alex/wpd 11/28/18 @ 1207 Signed Ethel Lopez MD 11/29/18 1707 END OF REPORT HGB [id number] 05:12:00 Test Item Value Reference Range Interpretation Comments HEMOGLOBIN (test code = HGB) 11.7 g/dL 10.7-13.9 N HEMATOCRIT (test code = HCT) 34.6 % 32.1-42.1 N AG HEPATITIS B [id number] 14:24:00 Test Item Value Reference Range Interpretation Comments AG HEPATITIS B SURFACE (test code NONREACTIVE NONREACTIVE = HBSAG) IS CONSENT FORM SIGNED FOR HIV TESTING? YAB HEPATITIS C [id number] 14:24:00 Test Item Value Reference Range Interpretation Comments AB HEPATITIS C (test code = NONREACTIVE NONREACTIVE HCVAB) SIGNAL TO CUTOFF (test code = <0.02 <0.80 N CUTOFF) IS CONSENT FORM SIGNED FOR HIV TESTING? YAB HIV 1 14:24:00 Test Item Value Reference Range Interpretation Comments AB HIV 1 2 (test NONREACTIVE NONREACTIVE Done by [facility] code = UQT76SY) 4th Gen HIV Ag/Ab Combo Screen IS CONSENT FORM SIGNED FOR HIV TESTING? YAG HEPATITIS B [id number] 13:50:00 Test Item Value Reference Range Interpretation Comments AG HEPATITIS B SURFACE (test code NONREACTIVE NONREACTIVE = HBSAG) IS CONSENT FORM SIGNED FOR HIV TESTING? YAB HEPATITIS C [id number] 13:50:00 Test Item Value Reference Range Interpretation Comments AB HEPATITIS C (test code = HCVAB) NONREACTIVE SIGNAL TO CUTOFF (test code = CUTOFF) <0.80 IS CONSENT FORM SIGNED FOR HIV TESTING? YAB HIV 1 13:50:00 Test Item Value Reference Range Interpretation Comments AB HIV 1 2 (test code = ABD76LH) NONREACTIVE IS CONSENT FORM SIGNED FOR HIV TESTING? [facility] SERUM [id number] 13:22:00 Test Item Value Reference Range Interpretation Comments HCG SERUM QUAL (test code = HCGQL) NEGATIVE CBC W/AUTO [id number] 13:06:00 Test Item Value Reference Range Interpretation [...] (test NORMAL NORMAL code = PLTMR) URINALYSIS [id number] 13:05:00 Test Item Value Reference Range Interpretation [...] SEEN URINE SAMPLE: CLEAN CATCH- US TRANSVAGINAL [id number] 14:06:00 Patient Name: JELENA US Unit No: [id number] EXAMS: CPT CODE: [id number] US TRANSVAGINAL W/PELVIS 77098 Pelvic US performed November 08, 2018. COMPARISON: [...] Gan MD Technologist: Scarlet Flowers RDMS Probe: [id number] Trnscrbd D/ (1406) t.SDR.NMG Orig Print D/T: S: 11/08/2018 (0056) [facility] NAME: JELENA US Radiology Department PHYS: GUTAL.Fausto - GanQuanIrma [address] : 1975 AGE: 43 SEX: F [place] [address] LOC: BillyERS PHONE #: [phone] EXAM DATE: 11/08/2018 STATUS: DEP ER FAX #: [phone] RAD NO: Page 1 Signed Report Patient Name: JELENA US Unit No: [id number] EXAMS: CPT CODE: [id number] US TRANSVAGINAL W/PELVIS 38617 <Continued> [facility] NAME: JELENA US Radiology Department PHYS: ANNY.Fausto - GanQuanIrma [address] : 1975 AGE: 43 SEX: F [place] [address] LOC: BillyERS PHONE #: [phone] EXAM DATE: 11/08/2018 STATUS: DEP ER FAX #: [phone] RAD NO: Page 2 Signed Report- US TRANSVAGINAL [id number] 14:06:00 Patient Name: JELENA US Unit No: [id number] EXAMS: CPT CODE: [id number] US TRANSVAGINAL W/PELVIS 21996 Pelvic US performed November 08, 2018. COMPARISON: [...] Gan MD Technologist: Scarlet Flowers RDMS Probe: [id number] Trnscrbd D/ (1406) tSUMMER Orig Print D/T: S: 11/08/2018 (6206) [facility] NAME: JELENA US Radiology Department PHYS: GUTAL. - Irma Gan [address] : 1975 AGE: 43 SEX: F [place] [address] LOC: BillyERS PHONE #: [phone] EXAM DATE: 11/08/2018 STATUS: REG ER FAX #: [phone] RAD NO: Page 1 Signed Report Patient Name: JELENA US Unit No: [id number] EXAMS: CPT CODE: [id number] US TRANSVAGINAL W/PELVIS 89564 (Continued) [facility] NAME: JELENA US Radiology Department PHYS: ANNY. - Irma Gan [address] : 1975 AGE: 43 SEX: F [place] [address] LOC: BillyERS PHONE #: [phone] EXAM DATE: 11/08/2018 STATUS: REG ER FAX #: [phone] RAD NO: Page 2 Signed Report- US PELVIS [id number] 14:06:00 Patient Name: JELENA US Unit No: [id number] EXAMS: CPT CODE: [id number] US PELVIS COMPLETE 76602 Pelvic US performed November 08, 2018. COMPARISON: [...] Scarlet Flowers RDMS Probe: Trnscrbd D/ (1406) t.SDR.NMG Orig Print D/T: S: 11/08/2018 (7486) [facility] NAME: JELENA US Radiology Department PHYS: ANNY. - Irma Bueno [address] : 1975 AGE: 43 SEX: F [place] [address] LOC: BillyERS PHONE #: [phone] EXAM DATE: 11/08/2018 STATUS: [facility] FAX #: [phone] RAD NO: Page 1 Signed Report Patient Name: JELENA US Unit No: [id number] EXAMS: CPT CODE: [id number] US PELVIS COMPLETE 22359 <Continued> [facility] NAME: JELENA US Radiology Department PHYS: ANNY.Fausto - Irma Gan [address] : 1975 AGE: 43 SEX: F [place] [address] [facility] #: [phone] EXAM DATE: 11/08/2018 STATUS: DEP ER FAX #: [phone] RAD NO: Page 2 Signed Report- US PELVIS [id number] 14:06:00 Patient Name: JELENA US Unit No: [id number] EXAMS: CPT CODE: [id number] US PELVIS COMPLETE 86924 Pelvic US performed November 08, 2018. COMPARISON: [...] Scarlet Flowers RDMS Probe: Trnscrbd D/ (1406) t.NOLANR.NMG Orig Print D/T: S: 11/08/2018 (1409) [facility] NAME: JELENA US Radiology Department PHYS: Irma Asher [address] : 1975 AGE: 43 SEX: F [place], [place] [address] LOC: BillyERS PHONE #: [phone] EXAM DATE: 11/08/2018 STATUS: REG ER FAX #: [phone] RAD NO: Page 1 Signed Report Patient Name: JELENA US Unit No: [id number] EXAMS: CPT CODE: [id number] US PELVIS COMPLETE 52467 (Continued) [facility] NAME: JELENA US Radiology Department PHYS: Irma Asher [address] : 1975 AGE: 43 SEX: F [place], [place] [address] LOC: ANA PHONE #: [phone] EXAM DATE: 11/08/2018 STATUS: REG ER FAX #: [phone] RAD NO: Page 2 Signed ReportCOMPREHENSIVE METABOLIC [id number] 13:23:00 Test Item Value Reference Range Interpretation [...] N code = ALKP) DRUGS OF ABUSE [id number] 13:04:00 Test Item Value Reference Range Interpretation [...] = PHENCU) 25 ng/m L CBC W/AUTO [id number] 13:00:00 Test Item Value Reference Range Interpretation [...] = PLTMR) UA RFLX MICR CULT IF [id number] 12:57:00 Test Item Value Reference Range Interpretation [...] SEEN Indication for culture: Suprapubic PainUR HCG [id number] 12:57:00 Test Item Value Reference Range Interpretation [...] culture: Suprapubic PainUA RFLX MICR CULT IF [id number] 12:54:00 Test Item Value Reference Range Interpretation [...] RARE-FEW Indication for culture: Suprapubic PainUR HCG [id number] 12:54:00 Test Item Value Reference Range Interpretation [...] and tested. Indication for culture: Suprapubic Pain Notes Date/Time Note Provider Source 2018-11-29 23:45:00-00:00 [id number] [facility] [address], [place] [address] PATIENT NAME: JELENA US ADMIT DATE: 11/27/18 ACCOUNT NO: [id number] ROOM NO: [facility] AGE: 43 SEX: F ADMITTING PHYSICIAN: Nicolle Draper MD ATTENDING PHYSICIAN: Nicolle Draper MD OPERATION DATE: 11/27/2018 PREOPERATIVE DIAGNOSES: 1. Pelvic pain. 2. Dysmenorrhea. 3. Family history of endometriosis. POSTOPERATIVE DIAGNOSES: 1. Pelvic pain. 2. Dysmenorrhea. 3. Family history of endometriosis. 4. Endometriosis. PROCEDURES: 1. Robotically assisted total laparoscopic hyste rectomy with bilateral salpingectomy. 2. Robotically assisted laparoscopic excision of endometriosis. 3. Robotically assisted laparoscopic right parat ubal excision. SURGEON: Nicolle Draper MD STEM SIZER: El Stokes SA ANESTHESIA: General. ESTIMATED BLOOD LOSS: 100 mL. INTRAVENOUS FLUIDS: 1800 mL. URINE OUTPUT: 200 mL of clear urine. COMPLICATIONS: None. COUNTS: Correct. FINDINGS: A 10-week size globular uterus , 3 cm right paratubal cyst adhered to right pelvic sidewall. Normal ovaries bi laterally, evidence of bilateral tubal ligation. Endometrial implant in the right pelvi c sidewall, posterior cul-de-sac. Normal-appearing upper abdomen. INDICATIONS: The patient is a 43-year-old 3, para 3, who presented with episode of severe pelvic pain. The patient has a long history of severe dysmenorrhea. Recent ultrasound showed a right 4.3 cm simple cyst. The patient PATIENT NAME: JELENA US 8 does have a strong family history of endometrios is. Risks, benefits, and alternatives were discussed with the patient. The patient agreed to robotically assisted total laparoscopic hysterectomy with bilateral salpingectomy as well as possible excision of endo and right ovarian cyst ectomy. It was discussed at length with the patient that despite surgery, e patientmay continue with pain. The patient acknowledged and desires the p rocedure. PROCEDURE IN DETAIL: The patient was taken to e OR with IV in place. She was induced under general anesthesia without dif ficulty. The patient was placed in dorsal lithotomy position in [facility]. She was prepped and draped in the usual sterile manner. Garsia catheter was placed in the bladder sterilely. The patient has been given Ancef preo peratively for prophylaxis as well as Lovenox 40 mg subcutaneously for DVT pro phylaxis. Anterior lip of the cervix was grasped with single-tooth tenaculum. Uterus was gently sounded to 11 cm. Cervix was then gently dilated from size 9 to size 15 using Parth dilators. Stay sutures of 0 Prolene were placed at 3 o'clock and 9 o'clock. A 10-cm APRIL uterine manipulator, 3.5 cm c olpotomizer ring, and vaginal occluder were then placed in the uterus, on the c ervix, and in the vagina respectively. These were attached to the stay sutures. Vaginal occluder was filled with 60 mL of saline. The patient was then placed flat. Attention was then turned to the abdomen. An 8-mm vertical incision was made through the umbilicus. With the abdomen tented up, the Veress needle was passed what was felt to be fascia and peritoneum. Hanging drop test was within nor mal limits. CO2 gas was then used to insufflate the abdomen with pressure bradley it set at 20 mmHg. After pressure limit was achieved, the Veress needle w as removed. An 8-mm bladeless trocar was inserted easily. The laparoscope conf irmed safe entry. The patient was then placed in Trendelenburg. Survey of the upper abdomen was within normal limits. Survey of the pelvis revea led approximately 10-week size globular uterus, evidence of BTL. Approxima tely a 3 cm right paratubal cyst was noted to be adhered to right pelvic wade ewall. Endometrial implants were noted on the right pelvic sidewall as was t he posterior cul-de-sac. Three ancillary ports were then placed under dir ect visualization, all 8-mm ports, one in the right lower quadrant, one in l eft lower quadrant, and an AirSeal port in right upper quadrant. Laparoscop e was removed. The pressure was dropped to 15 mmHg. Robot was docked. Fenest rated bipolar instrument was placed in left lower quadrant and monopolar scis sors were placed in the right lower quadrant. The patient was then pretreated with IV Benadryl and ICG dye was injected intravenously. Under Firefly mode, pelvis was thoroughly inspected. Endometrial implants again were seen on the right pelvic sidewall as well as the posterior cul-de-sac. Attention w as first turned to the right paratubal cyst. Adhesion of cyst to the tube was carefully lysed. The ureter was identified along the right pelvic sidewall. Cyst was then elevated and an incision was made in peritoneum. This was carefu lly from the right pelvic sidewall with extreme care to avoid injur ing ureter. During dissection, the cyst inadvertently drained clear serous fluid. The cyst was removed through the bindery assistant port. Attention wa s then turned to the lesions along the right pelvic sidewall above the ureter . This lesion was carefully circumscribed. Hydrodissection was performed and the peritoneum was carefully excised. Lesions were also noted in the posterio r cul-de-sac. With care to avoid injuring rectum, the lesion was carefully circumscribed and carefully excised using monopolar scissors. Attention was then turned to the left fallopian tube. Left fallopian tube was elevated and mesosalpinx was incised from the fimbriated end towards the medial area. The distal aspect of the tube was removed through the bindery assistant port. Jamari e was performed on the right side. Left round ligament was then cauterized us ing PATIENT NAME: JELENA US 8 bipolar instrument, then divided using monopolar scissors. Left utero-ovarian ligament was then cauterized using bipolar instr ument, then divided using monopolar scissors. Anterior lip of the bladder was then back filled. Anterior leaf of the peritoneum was incised on the left s fernandez and carried out medially to develop the bladder flap. Bladder was dissect ed off lower uterine segment. Uterine vessels were skeletonized on the left si de by incising the posterior peritoneum. Uterine vessels were then cauterized at the level of internal cervical os. Attention was then turned to the ri ght side. Right round ligament was transected using the bipolar instru ment and monopolar scissors. Right utero- ovarian ligament was then cauterized using bipolar instrument, then divided using monopolar scissor s. Anterior leaf of the peritoneum was incised and carried out medially to develop the bladder the bladder flap on the right side. Uterine vessels were skeletonized by incising posterior peritoneum. After assuring that the bl adder was well dissected off the lower uterine segment, colpotomy was perform ed at the cervicovaginal junction anteriorly from 10 o'clock to 2 o'clock . Uterine vessels were again encountered on the right side, were cauterized u sing bipolar instrument and then divided using monopolar scissors. Colpotomy was continued posteriorly over to the left side. Left uterine vessels were cauterized using bipolar instrument and then divided using monopolar scis sors. Uterus was then completely detached, it was delivered through th e vagina. 0 V- Loc suture was then introduced in the pelvis and vaginal cuff w as closed using sutures. Two sutures were inserted in the left apex and runni ng towards the right side. Another suture surround the right apex and ran t owards the left side so that the 2 sutures overlapped. Pelvis was then checke d under low pressure. Good hemostasis was noted and confirmed. Ureters were identified bilaterally with good peristalsis noted. Approximately 20 mL of s leann was left in the pelvis. All instruments were then removed. Robot was und ocked. Pneumoperitoneum was evacuated. Trocars were removed. Umbilical port site fascia was closed using 0 Vicryl interrupted suture. Skin was closed usi ng 4- 0 Vicryl interrupted suture and all port sites and sealed with Dermab ond. A 0.25% Marcaine was injected in all port sites. Speculum exa m of the vagina revealed that the cuff was intact and hemostatic. The vaginal laceratio ns were noted. The patient was removed from dorsal lithotomy position, awok en from general anesthesia without difficulty. The patient tolerated the pr ocedure well. Dictated By: Nicolle Draper MD WT: OP:F.YESSENIA/CONCEPCION. Conf#: [id number]/DID#: [id number] Authenticated and Edited by Nicolle Draper MD On 12/25/18 8:14:22 AM Electronically Signed by Nicolle Draper MD on at 0816 PATIENT NAME: JELENA US 2018-11-28 09:12:00-00:00 [facility] Gynecology Post Prog Note REPORT#:[id number] REPORT STATUS: Signed DATE:11/28/18 TIME: 911 PATIENT: JELENA US UNIT #: [id number] ROOM/BED: [address] : [birth year] AGE: 43 SEX: F ATTEND: Nicolle Draper MD ADM AUTHOR: Nicolle Draper MD * ALL edits or amendments must be made on the [employer]/computer document * General Post-op: day 1 Status post: RATLHBS, EOE Subjective Comments: Pt with pain - just received Motrin. Kraig reg t. Voiding well. Objective Physical Exam VS/I O Last Documented: Result Date Time Pulse Ox 96 11/28 740 B/P 113/69 11/28 740 B/P Mean 83.5 11/28 740 Temp 98.4 11/28 07 Pulse 69 11/28 0741 Resp 18 11/28 0741 O2 Delivery Room air 11/27 1845 O2 Flow Rate 10.645445 11/27 1715 24 hour I O ending at 0700: 11/28 0700 11/27 1900 Intake Total 2250.00 2125.00 Output Total 2200 450 Balance 50.00 1675.00 Intake, IV 1500.00 2125.00 Intake, Oral 750 Number Voids 2 Output, 100 Estimated Blood Loss Output, Urine 2200 350 Patient 89.6 kg Weight Weight Standing scale Measurement Method Patient Weight Weight (lb): 197 Weight (oz): 8.55 Weight (kg): 89.600 General appearance: alert, awake Wound/incision: Location: abd Site condition: edges approximated, incision in tact Cardiovascular: regular rate rhythm Respiratory: clear to auscultation, no distress, no tenderness Abdomen: normal bowel sounds, soft, mild distent ion Results Findings/Data: Laboratory Tests 11/28 0425 Hematology Hgb (10.7 - 13.9 g/dL) 11.7 Hct (32.1 - 42.1 %) 34.6 Diagnosis, Assessment Plan Free Text A P: Overall doing well except pain control. HD stabl e. Good U/O. Good GI fxn. Plan: Will monitor pain control with po meds tod ay Prob d/c later Precautions given Electronically Signed by Nicolle Draper MD on 07/13 at 0915 RPT #:[id number] END OF REPORT 2018-11-27 16:20:00-00:00 [facility] ([facility]) Brief Op Note REPORT#:[id number] REPORT STATUS: Signed DATE:11/27/18 TIME: 1620 PATIENT: JELENA US UNIT #: [id number] ROOM/BED: : 76 AGE: 43 SEX: F ATTEND: Nicolle Draper MD ADM AUTHOR: Nicolle Draper MD * ALL edits or amendments must be made on the el ectronic/computer document * Op/Inv Proc Note - Brief Pre-procedure diagnosis: 1. Pelvic Pain 2. Dysmenorrhea 3. Family History of Endometriosis Post-procedure diagnosis: same 4. Endometriosis Procedures performed: 1. RATLHBS 2. RA Lscopic EOE 3. RA Lscopic Right Paratubal Excision Primary Surgeon: Coy Draper MD Oil Heater Operator(s): Pawel Stokes Anesthesia: general anesthesia Findings: 10 week size globular uterus, 3cm right paratubal cyst adhered to right pelvic sidewall, nml ovaries bilaterally, evidence of B TL, endometrial implants on right pelvic sidewall, post cul de sac, nml uppe r abdomen Complications: none Estimated blood loss in ml's: 100 Specimens removed/altered: uterus, bilateral tub es, right paratubal cyst, peritoneum from mult sites Drain(s): Garsia Catheter Placed Fluids: 1800 Urine output: 200 Disposition: PACU, MEDSURG Electronically Signed by Nicolle Draper MD on 06/12 at 1627 RPT #:[id number] END OF REPORT 2018-11-08 12:21:00-00:00 [facility] ([facility]) EMERGENCY PROVIDER REPORT REPORT#:[id number] REPORT STATUS: Signed DATE:11/08/18 TIME: 1221 PATIENT: JELENA US UNIT #: [id number] ROOM/BED: AGE: 43 SEX: F PCP PHYS: Esme Koch MD SERVICE AUTHOR: Irma Gan * ALL edits or amendments must be made on the [employer]/computer document * HPI-Abd Pain F 40 and Over General Initial Greet Date/Time 11/08/18 1221 Presentation Chief Complaint Abdominal pain, Pelvic pain Hx Obtained From Patient Sudden in Onset? Yes Free Text HPI Notes Free Text HPI Notes 43 yr old female not currently LMP 11/01 she had lower pelvic pain 2 weeks ago, had US pe rformed which showed right ovarian cyst today increased pelvic pain, bilaterally, burnin g no fever, no diarrhea, no constipation Risk-Abd Pain F 40 and Over )( Abdominal Aortic Aneurysm Risk factors review ed Review of Systems ROS Statements Complete sys rev neg except as marked. Basic Review of Systems Basic ROS EYES: No redness, ENT: No sore throat, HEM: No bleeding/bruising, SKIN : No rash, NEURO: No change MS, NEURO: No focal deficit, PSYCH: NL thought content Past Medical History - Adult Stated Complaint BILATERAL LOWER ABDOMINALAND BA CK PAIN X 2 WEEKS Allergies Coded Allergies: No Known Allergies (11/08/18) Home Medications Reported Medications ACETAMINOPHEN/CODEINE (TYLENOL WITH CODE INE #3 300/30 MG) 1 TAB PO Q6H PRN PRN SEVERE PAIN NAPROXEN SODIUM (ALEVE) 220 MG PO Q8H PRN PRN PA IN [WOMANS MULTIVITAMIN] Review of Nursing Notes Rev avail, and agree Pt reports no significant: Past medical history, Past surgical history, Family history Physical Exam Vital Signs Vital Signs First Documented: Result Date Time Pulse Ox 97 11/08 1221 B/P 131/89 11/08 1221 B/P Mean 103 11/08 1221 O2 Delivery Room air 11/08 1221 Temp 36.8 11/08 1221 Pulse 76 / 1221 Resp 18 11/08 1221 Last Documented: Result Date Time Pulse Ox 98 11/08 1420 B/P 140/84 11/08 1420 B/P Mean 102 11/08 1420 O2 Delivery Room air 11/08 1420 Temp 36.8 11/08 1420 Pulse 75 08 1420 Resp 18 11/08 1420 Review of Vital Signs Reviewed, Vital signs norm al Basic Physical Exam Basic PE HEAD: Atraumatic/NC, EYES: PERRL, conj clear, ENT: Membranes moist, NECK: Supple, EXT: No gross abnormality, SKIN: No rashes, warm/dry, NEURO: alert oriented, NEURO: gross movement NL, PSYCH: NL t hought content Focused PE General/Const General/Const Awake, Alert, Well appearing, Wel l developed, Well hydrated, Well nourished, Cooperative, Not toxic appearing, mild facial distress noted due to pain Resp/Chest Respiratory/Chest Breath sounds NL, Breath soun ds = bilat, No respiratory distress, No rales, No rhonchi, No wheezing Cardiovascular Cardiovascular Heart rate NL, Regular rhythm, H eart sounds NL Abdomen/GI Abdomen/GI Atraumatic, Soft, McBurney's non-[place], No guarding, No rebound, BS normoactive, No distention, No hernia , No palpable mass, No pulsatile mass, bilateral lower pelvic tenderness, no rebound MS Back Back Inspection NL, No CVA tenderness Interpretation Diagnostics Lab Results Interpretation Results Laboratory Tests 11/08/18 1250: [Embedded Image Not Available] Laboratory Tests: 11/08 11/08 1250 1225 Chemistry Sodium (135 - 145 mEq/L) 140 Potassium (3.5 - 5.0 mEq/L) 3.8 Chloride (100 - 115 mEq/L) 105 Carbon Dioxide (22 - 31 mEq/L) 29 Anion Gap (10 - 20) 10.00 BUN (7 - 18 mg/dL) 10 Creatinine (0.5 - 1.0 mg/dL) 0.9 Glomerular Filtr Rate (>60 ml/min) 69 Glucose (65 - 110 mg/dL) 83 Calcium (8.4 - 10.2 mg/dL) 9.2 Total Bilirubin (0.2 - 1.0 mg/dL) 0.6 AST (15 - 37 units/L) 20 ALT (12 - 78 units/L) 21 Total Alk Phosphatase (46 - 116 units/L) 78 Total Protein (6.3 - 8.2 gm/dL) 7.5 Albumin (3.4 - 4.8 gm/dL) 4.3 Hematology WBC (6.6 - 12.1 K/mm3) 4.7 L RBC (3.45 - 5.01 M/mm3) 4.15 Hgb (10.7 - 13.9 g/dL) 13.2 Hct (32.1 - 42.1 %) 40.2 MCV (84.1 - 94.8 fL) 97 H MCH (27 - 35 pg) 31.8 MCHC (32.2 - 34.1 gm/dL) 32.8 RDW (12.4 - 16.5 %) 12.0 L Plt Count (133 - 385 K/mm3) 245 MPV (9.1 - 12.7 fl) 10.0 Neut % (Auto) (56.5 - 79.4 %) 56.7 Lymph % (Auto) (14.3 - 34.3 %) 33.3 [place] % (Auto) (5.1 - 10.4 %) 7.7 Eos % (Auto) (0.1 - 3.0 %) 1.5 Baso % (Auto) (0.1 - 1.0 %) 0.6 Neut # (Auto) (K/mm3) 2.7 Lymph # (Auto) (K/mm3) 1.6 [place] # (Auto) (K/mm3) 0.4 Eos # (Auto) (K/mm3) 0.07 Baso # (Auto) (K/mm3) 0.0 Immature Plt Fraction (0.0 - 10.8 %) 0.0 Toxicology Urine Opiates Screen (NEGATIVE) NEGATIVE Ur Barbiturates, Qual (NEGATIVE) NEGATIVE Ur Phencyclidine Scrn (NEGATIVE) NEGATIVE Ur Amphetamines Screen (NEGATIVE) NEGATIVE U Benzodiazepines Scrn (NEGATIVE) NEGATIVE Urine Cocaine Screen (NEGATIVE) NEGATIVE Urine Cannabinoids (NEGATIVE) NEGATIVE Urines Urine Color (YELLOW) YELLOW Urine Appearance (CLEAR) Slightly-Cloudy Urine pH (5 - 9) 5.0 Ur Specific [place] (1.001 - 1.035) 1.021 Urine Protein (NEG) NEGATIVE Urine Glucose (UA) (NEG) NEGATIVE Urine Ketones (NEG) NEGATIVE Urine Blood (NEG) NEG Urine Nitrite (NEG) NEG Urine Bilirubin (NEG) NEGATIVE Urine Urobilinogen (NEG mg/dL) NEGATIVE Ur Leukocyte Esterase (NEG) NEG Urine RBC (NONE SEEN #/hpf) 0-2 Urine WBC (NONE SEEN #/hpf) 0-2 Ur Epithelial Cells (RARE - FEW #/HPF) RARE Urine Mucus (NONE SEEN) 2+ Urine HCG, Qual NEGATIVE Microbiology: Date/Time Procedure - Status Source Growth 11/08 1250 GC DNA Probe - RECD URINE 11/08 1250 Chlamydia DNA Probe ([facility]) - RECD URINE Recent Impressions: ULTRASOUND - US TRANSVAGINAL W/PELVIS 11/08 1310 Report Impression - Status: SIGNED Entered: 11/08/2018 1409 IMPRESSION: 1. Simple appearing 4.6 x 2.3 x 3.3 cm right per iovarian cyst Impression By: Hayley Menchaca MD ULTRASOUND - US PELVIS COMPLETE 11/08 1310 Report Impression - Status: SIGNED Entered: 11/08/2018 140 IMPRESSION: 1. Simple appearing 4.6 x 2.3 x 3.3 cm right per iovarian cyst Impression By: Hayley Menchaca MD Lab Imaging Statement Laboratory radiographic studies reviewed and con sidered in the medical decision-making. Point of Care Testing Urinalysis Interpretation Urinalysis NL Pulse Oximetry Pulse Ox % 97 On: Room air Interpretation Interpreted by me, Pulse oximetr y normal Lab Studies CBC Interpretation CBC NL BMP/CMP Interpretation BMP/CMP NL Re-Evaluation MDM )( Re-Evaluation/Progress #1 Time of Re-Eval 1420 )( Re-Eval Status pain improved after IV toradol but recurred after US- willremedicate with IV morphine and zofran Re-Eval Abdomen Soft, Non-tender, No guarding, N o rebound, BS normoactive, McBurney's non-tender, No distention Re-Evaluation/Progress #2 Time of Eval 1516 Re-Eval Status Improved Re-Eval Abdomen Soft Eval Following Treatment Pt. feels better, Condi tion improved Pain Re-Evaluation Pain improved Abd Pain MDM Note F > 40 The patient is resting comfortably and feels bet ter, is alert and in no distress. The repeat examination is unremarkable and benign; in particular, there is no discomfort at McBurney's poi nt and there is no pulsatile mass. The history, exam, diagnostic testing, and current c ondition do not suggest acute appendicitis, bowel obstruction, acute c holecystitis, bowel perforation, major gastrointestinal bleeding, severe diverticulitis , abdominal aortic aneurysm, mesenteric ischemia, volvulu s, sepsis, or other significant pathology to warrant further testing, continued ED treatment, admissi on, or surgical evaluation at this point. The vital signs have been stable. Th e patient does not have uncontrollable pain, intractable vomiting, or ot her significant symptoms. The patient's condition is stable and approp riate for discharge from the emergency department. The patient will pursue further outp atient evaluation with the primary care physician or ot her designated or consulting physician as indicated in the discharge instructions. ED Course Medication(s) Ordered Medication(s) Ordered: Central Nervous System Agents Sig/Steve Start time Last Medication Dose Route Stop Time Status Admin Morphine Sulfate 4 MG X1ED STA 11/08 1428 DC IV 11/08 1429 1434 Ketorolac 30 MG X1ED STA 11/08 1252 DC 08 Tromethamine IV 11/08 1253 1303 Gastrointestinal Drugs Sig/Steve Start time Last Medication Dose Route Stop Time Status Admin Ondansetron HCl 4 MG X1ED STA 11/08 1428 DC IV 11/08 1429 1434 Patient Discharge Departure Vital Signs/Condition Vital Signs First Documented: Result Date Time Pulse Ox 97 11/08 1221 B/P 131/89 08/ 1221 B/P Mean 103 08/ 1221 O2 Delivery Room air 11/08 1221 Temp 36.8 08/ 1221 Pulse 76 08/ 1221 Resp 18 11/08 1221 Last Documented: Result Date Time Pulse Ox 98 08/ 1420 B/P 140/84 08/ 1420 B/P Mean 102 08/ 1420 O2 Delivery Room air 11/08 1420 Temp 36.8 08/15 1420 Pulse 75 08/15 1420 Resp 18 11/08 1420 All vital signs available at the time of this en try have been reviewed. Condition Improved, Stable Clinical Impression Clinical Impression Primary Impression: Ovarian cyst Disposition Decision Discharge )( Discharged to Home Yes )( Time 1516 )( Date 11/08/18 Discharge/Care Plan Counseled Regarding Diagnosi s, Lab results, Imaging studies, Need for follow-up, When to return to ED Prescriptions toradol 10 mg po q 6-8 hrs prn pain (10 pills gi za) Prescriptions Reviewed Risks, Benefits, Alternat tamra treatment Discharge Note I have spoken with the patie nt and/or caregivers. I have explained the patient's condition, diagnoses and steffany atment plan based on the information available to me at this time. I have answered the patient's and/ or caregiver's questions and addressed any concerns. The patient and/or careg stone have as good an understanding of the patient 's diagnosis, condition and treatment plan as can be expected at this point. The vital signs have bee n stable. The patient's condition is stable and appr opriate for discharge from the emergency department. The patient will pursue further outpatient evalu ation with the primary care physician or other designated or consulting phys ician as outlined in the discharge instructions. The patient and/or caregivers are agreeable to this plan of care and follow-up instructions have been exp lained in detail. The patient and/or caregivers have received these instructio ns in written format and have expressed an understanding of the discharge inst ructions. The patient and/or caregivers are aware that any significant change in condition or worsening of symptoms should prompt an immediate return to [facility] or the closest emergency department or a call to 911. Quality Measures Preg Test for Women w/Abd Pa in Female age 14-50, Complaint of abdominal pn, Any preg test ordered at 1520 RPT #:[id number] END OF REPORT
[2022-08-31] MEDS ORDERED: FAMOTIDINE 20 MG/2 ML VIAL IV ONE (21:54)
[2022-08-31] MEDS ORDERED: ONDANSETRON 4 MG/2 ML VIAL ONE (21:54)
[2022-08-31] MEDS ORDERED: MORPHINE 4 MG/ML SYR ONE (21:54)
[2022-08-31] MEDS ORDERED: NA CHLORIDE 0.9% 1,000 ML ONE (21:54)
--- NOTE | 2022-08-31 22:19 | RAD REPORT ---
[facility]05 [facility] CLINICAL HISTORY: right upper abdomen pain COMPARISON: Chest Single View dated 07/27/2022 TECHNIQUE: Portable AP view of the chest. FINDINGS: The lungs are clear. No pneumothorax or effusion. The cardiomediastinal contours are unre markable. IMPRESSION: No acute cardiopulmonary process.
[2022-08-31 22:21] LABS: Absolute Lymphocytes (CBC) 0.9 K/uL (0.7-4.9); Hematocrit 37.1 % (36.0-45.0); Lymphocytes % 10.5 % (15.3-44.8); MCV 92.8 fL (80-100); MPV 7.8 fL (7.6-11.3); RBC Red Blood Cell Count 3.99 M/uL (3.86-4.86)
[2022-08-31 22:31] LABS: Albumin 3.9 g/dL (3.4-5.0); Bilirubin Total 1.2 mg/dL (0.2-1.0); Potassium 3.8 mEq/L (3.5-5.1); Protein, Total 7.4 g/dL (6.4-8.2)
[2022-08-31 22:45] LABS: Specific Gravity 1.028 (1.005-1.030)
[2022-08-31 22:46] LABS: Specific Gravity 1.028 (1.005-1.030); Urine Bacteria <20 /HPF (<20); Urine Bilirubin NEGATIVE (Negative); Urine Blood Negative (Negative); Urine Clarity Clear (Clear); Urine Color Yellow (Yellow); Urine Glucose NEGATIVE (Negative); Urine Mucus 3+ /HPF (None Seen); Urine Protein TRACE (Negative); Urine RBC <5 /HPF (None Seen); Urine Urobilinogen 2+ (Normal); Urine pH 5.5 (5.0-7.0)
[2022-08-31] MEDS ORDERED: HYDROMORPHONE HCL 1 MG/ML INJ ONE (23:36)
--- NOTE | 2022-09-01 00:03 | ER ---
Nurse's Notes [facility] [place] Name: Caridad Conn Age: 47 yrs Sex: Female : 1975 Arrival Date: 08/31/2022 Time: 20:54 Bed 16 Private MD: Diagnosis: Abnormal results of liver function studies;Cholecystitis, unspecified Presentation: 08/31 21:18 Chief complaint: Patient states: SINCE 4:00 TODAY I HAVE HAD A SHARP MAIN IN MY RIGHT kd3 UPPER QUADRANT AND INTO MY RIGHT SIDE OF MY BACK. I AM DRY HEAVING AND NAUSEOUS. IT CAME ON SUDDENLY. Coronavirus screen: Vaccine status: Patient reports receiving the 2nd dose of the covid vaccine. Ebola Screen: No symptoms or risks identified at this time. Initial Sepsis Screen: Does the patient meet any 2 criteria? No. Patient's initial sepsis screen is negative. Does the patient have a suspected source of infection? No. Patient's initial sepsis screen is negative. Risk Assessment: Do you want to hurt yourself or someone else? Patient reports no desire to harm self or others. Onset of symptoms was August 31, 2022. 21:18 Method Of Arrival: Ambulatory kd3 21:18 Acuity: NARESH 3 kd3 Triage Assessment: 21:20 General: Appears uncomfortable, Behavior is calm, cooperative. Pain: Complains of pain kd3 in right upper quadrant Pain radiates to mid back area and right mid back. 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 - Social history:: Smoking status: Patient denies any tobacco usage or history of. Screenin:01 Abuse screen: Denies threats or abuse. Denies injuries from another. Nutritional aa9 screening: Has had N/V for 3 or more days. 09/01 02:14 [facility] ED Fall Risk Assessment (Adult) History of falling in the last 3 months, kd3 including since admission No falls in past 3 months (0 pts) Confusion or Disorientation No (0 pts) Intoxicated or Sedated No (0 pts) Impaired Gait No (0 pts) Mobility Assist Device Used No (0 pt) Altered Elimination No (0 pt) Score/Fall Risk Level 0 - 2 = Low Risk Oriented to surroundings, Maintained a safe environment, Educated pt \T\ family on fall prevention, incl call for assistance when getting out of bed. Tuberculosis screening: No symptoms or risk factors identified. Assessment: 08/31 22:00 General: Appears uncomfortable, slender, Behavior is cooperative, crying. Pain: aa9 Complains of pain in epigastric region Pain radiates to lumbar area and right mid back Pain currently is 12 out of 10 on a pain scale. Pain: Noted to be crying, grimacing, moaning. Neuro: Level of Consciousness is awake, alert, obeys commands, Oriented to person, place, time, situation. Cardiovascular: Patient's skin is warm and dry. Respiratory: Airway is patent Respiratory effort is even, unlabored. GI: Reports nausea, Patient currently denies diarrhea, vomiting. : No signs and/or symptoms were reported regarding the genitourinary system. Derm: Skin is intact, is healthy with good turgor. 22:00 Reassessment: Patient appears in no apparent distress at this time. Patient and/or aa9 family updated on plan of care and expected duration. Pain level reassessed. Pain: Current management is with Morphine, is pain level at 8/10. 22:43 Pain: Noted to be quiet/stoic, resistant to movement, Current management is pain level aa9 described at 4/10. Neuro: Level of Consciousness is awake, alert, obeys commands, Oriented to person, place, time, situation. 09/01 00:02 Reassessment: [phone] Dequan Page . aa9 00:43 Reassessment: Patient appears in no apparent distress at this time. Patient and/or aa9 family updated on plan of care and expected duration. Pain level reassessed. Patient is alert, oriented x 3, equal unlabored respirations, skin warm/dry/pink. Patient states feeling better. 02:01 Reassessment: called bashir galan at [facility] [place]. aa9 02:14 Reassessment: Patient appears in no apparent distress at this time. Patient and/or kd3 family updated on plan of care and expected duration. Pain level reassessed. Patient is alert, oriented x 3, equal unlabored respirations, skin warm/dry/pink. EMS at bedside Patient states symptoms have improved. Vital Signs: 08/31 21:18 BP 110 / 75; Pulse 79; Resp 20; Temp 98(O); Pulse Ox 100% ; Weight 65.77 kg; Height 5 kd3 ft. 6 in. ; 22:43 BP 121 / 84; Pulse 64; Resp 16 S; Pulse Ox 99% ; aa9 09/01 00:44 BP 119 / 86; Pulse 60; Resp 17 S; Pulse Ox 98% on R/A; aa9 01:21 BP 108 / 75; Pulse 52; Resp 16 S; Pulse Ox 95% ; aa9 08/31 21:18 Body Mass Index 23.40 (65.77 kg, 167.64 cm) kd3 ED Course: 08/31 20:57 Patient arrived in ED. kj1 21:20 Triage completed. kd3 21:20 Arm band placed on right wrist. kd3 21:21 Curt Conn PA is PHCP. cp 21:21 Hever Cooper MD is Attending Physician. cp 21:32 Sindy Meneses RN is Primary Nurse. aa9 21:55 Inserted saline lock: 20 gauge in left forearm, using aseptic technique. Blood aa9 collected. 21:59 CBC with Diff Sent. aa9 21:59 CMP Sent. aa9 21:59 Lipase Sent. aa9 22:01 Patient has correct armband on for positive identification. Placed in gown. Call light aa9 in reach. Side rails up X 1. Adult w/ patient. Pulse ox on. NIBP on. 22:07 XRAY Chest (1 view) In Process Unspecified. EDMS 22:32 Urinalysis w/ reflexes Sent. aa9 22:40 Abdomen Limited US: gallbladder In Process Unspecified. EDMS 23:50 Initial contact for transfer to [facility]. Spoke to TONIA Cervantes. ah1 09/01 00:10 Inserted saline lock: 22 gauge in right wrist, using aseptic technique. Blood collected.oe 00:27 Blood Culture Adult (2) Sent. aa9 01:18 Mick Miller called for accepting Dr to speak with Curt Conn. ah1 01:[address] Stephen Johnson. ah1 01:32 Hospital bed approval by Rubén Sami, [facility]. ah1 01:40 Faxed face sheet. ah1 01:52 [facility] called. 1 02:01 No provider procedures requiring assistance completed. Patient transferred, IV remains aa9 in place. 02:06 EMS arrived. 1 Administered Medications: 08/31 21:55 Drug: Ondansetron IVP 4 mg Route: IVP; Site: left forearm; aa9 22:33 Follow up: Response: No adverse reaction aa9 21:59 Drug: NS 0.9% IV 1000 ml Route: IV; Rate: 1 bolus; Site: left forearm; aa9 23:56 Follow up: Response: No adverse reaction; IV Status: Completed infusion; IV Intake: aa9 1000ml 21:59 Drug: Famotidine IVP 20 mg Route: IVP; Site: left forearm; aa9 22:33 Follow up: Response: No adverse reaction aa9 21:59 Drug: morphine IVP or IV 4 mg Route: IVP; Infused Over: 4 mins; Site: left forearm; aa9 22:32 Follow up: Response: No adverse reaction; Pain is decreased aa9 23:47 Drug: HYDROmorphone IVP 1 mg Route: IVP; Site: left forearm; aa9 23:56 Follow up: Response: No adverse reaction aa9 09/01 00:42 Follow up: Response: No adverse reaction; Pain is decreased aa9 00:41 Drug: Piperacillin-Tazobactam IVPB 3.375 grams Route: IVPB; Infused Over: 60 mins; aa9 Site: left forearm; 01:12 Follow up: Response: No adverse reaction; IV Status: Completed infusion; IV Intake: aa9 100ml 02:07 Drug: NS 0.9% IV 1000 ml Route: IV; Rate: 100 ml/hr; Site: left forearm; aa9 02:09 Follow up: Response: No adverse reaction; IV Status: Infusion continued upon transfer; kd3 IV Intake: 50ml 02:14 Drug: Ondansetron IVP 4 mg Route: IVP; Site: left forearm; kd3 Medication: 02:01 VIS not applicable for this client. aa9 Intake: 08/31 23:56 IV: 1000ml; Total: 1000ml. aa9 09/01 01:12 IV: 100ml; Total: 1100ml. aa9 02:09 IV: 50ml; Total: 1150ml. kd3 Outcome: 00:02 ER care complete, transfer ordered by . gavi 02:03 Condition: stable aa9 02:14 [facility]red by ground EMS to [facility], Transfer form completed. kd3 02:14 Instructed on the need for transfer. 02:15 Patient left the ED. kd3 Signatures: Dispatcher [employer] EDMS Curt Conn PA PA cp Espinosa, Orlando oe Jackson, Kandis kj1 Heidi Wynne RN RN kd3 Sindy Meneses RN RN aa9 [facility] Corrections: (The following items were deleted from the chart) 06 22:43 22:33 Pain: Current management is with Morphine, is pain level at 8 aa9 aa9 22:43 22:33 Reassessment: Patient appears in no apparent distress at this time. Patient aa9 and/or family updated on plan of care and expected duration. Pain level reassessed. aa9
--- NOTE | 2022-09-01 00:04 | EDPHYS ---
Physician Documentation [facility] Name: Caridad Conn Age: 47 yrs Sex: Female : 1975 Arrival Date: 08/31/2022 Time: 20:54 Bed 16 Private MD: ED Physician Hever Cooper HPI: 08/31 21:30 This 47 yrs old Female presents to ER via Ambulatory with complaints of RIGHT SIDE PAIN.cp 21:30 The patient presents with abdominal pain in the right upper quadrant. Onset: The cp symptoms/episode began/occurred today, about 1600 after eating. Associated signs and symptoms: Pertinent positives: nausea, vomiting, Pertinent negatives: constipation, diarrhea, dysuria, fever, vomiting blood. The symptoms are described as constant. 21:30 Severity of pain: in the emergency department the pain is actually worse markedly. 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 - Social history:: Smoking status: Patient denies any tobacco usage or history of. ROS: 21:35 Constitutional: Negative for body aches, chills, fever, poor PO intake. cp 21:35 Eyes: Negative for injury, pain, redness, and discharge. cp 21:35 ENT: Negative for drainage from ear(s), ear pain, sore throat, difficulty swallowing, difficulty handling secretions. 21:35 Cardiovascular: Negative for chest pain, palpitations. 21:35 Respiratory: Negative for cough, shortness of breath, wheezing. 21:35 Abdomen/GI: Positive for abdominal pain, nausea and vomiting, Negative for diarrhea, constipation, hematemesis. 21:35 Back: Positive for radiated pain, of the left subscapular area, right subscapular area and right mid back. 21:35 : Negative for urinary symptoms. 21:35 Neuro: Negative for altered mental status, dizziness, headache, weakness. 21:35 All other systems are negative. Exam: 21:38 Constitutional: The patient appears in no acute distress, alert, awake, cp non-diaphoretic, non-toxic, well developed, well nourished, uncomfortable. 21:38 Head/Face: Normocephalic, atraumatic. cp 21:38 Eyes: Periorbital structures: appear normal, Conjunctiva: normal, no exudate, no injection, Sclera: no appreciated abnormality, Lids and lashes: appear normal, bilaterally. 21:38 ENT: External ear(s): are unremarkable, Nose: is normal, Mouth: Lips: moist, Oral mucosa: pink and intact, moist, Posterior pharynx: is normal, airway is patent, no erythema, no exudate. 21:38 Neck: ROM/movement: is normal, is supple, without pain, no range of motions limitations. 21:38 Chest/axilla: Inspection: normal. 21:38 Cardiovascular: Rate: normal, Rhythm: regular. 21:38 Respiratory: the patient does not display signs of respiratory distress, Respirations: normal, no use of accessory muscles, no retractions, labored breathing, is not present, Breath sounds: are clear throughout, no decreased breath sounds. 21:38 Abdomen/GI: Inspection: abdomen appears normal, Bowel sounds: active, all quadrants, Palpation: soft, in all quadrants, severe abdominal tenderness, in the right upper quadrant. 21:38 Back: pain, that is moderate, of the left subscapular area, right subscapular area and right mid back, ROM is painful, with all movement. 21:38 Skin: no rash present. 21:38 Neuro: Orientation: to person, place \T\ time. Mentation: is normal, Motor: moves all fours, strength is normal, Sensation: is normal, Gait: is steady. Vital Signs: 21:18 BP 110 / 75; Pulse 79; Resp 20; Temp 98(O); Pulse Ox 100% ; Weight 65.77 kg; Height 5 kd3 ft. 6 in. ; 22:43 BP 121 / 84; Pulse 64; Resp 16 S; Pulse Ox 99% ; aa9 09/01 00:44 BP 119 / 86; Pulse 60; Resp 17 S; Pulse Ox 98% on R/A; aa9 01:21 BP 108 / 75; Pulse 52; Resp 16 S; Pulse Ox 95% ; aa9 08/31 21:18 Body Mass Index 23.40 (65.77 kg, 167.64 cm) kd3 MDM: 08/31 21:22 Patient medically screened. cp 23:55 ED course: transfer initiated with [facility] transfer center at 2350 to request GI services cp due to concern for choledocholithiasis. 09/01 01:25 Data reviewed: vital signs, nurses notes, lab test result(s), radiologic studies, plain cp films, ultrasound. 01:25 Consideration of Admission/Observation transfer for GI services. Management of patient cp was discussed with the following: hospitalist, DR Johnson \T\[facility] will accept patient as transfer after discussion. I considered the following discharge prescriptions or medication management in the emergency department Medications were administered in the Emergency Department. See MAR. Test considered but Not performed: CT: abdomen/pelvis. Counseling: I had a detailed discussion with the patient and/or guardian regarding: the historical points, exam findings, and any diagnostic results supporting the discharge/admit diagnosis, lab results, radiology results, the need to transfer to another facility, [facility] does not immediately have the required specialist. Response to treatment: the patient's symptoms have markedly improved after treatment. 08/31 21:24 Order name: CBC with Diff; Complete Time: 22:36 08/31 22:36 Interpretation: Normal except: ELLIE% 83.6; LYM% 10.5. 08/31 21:24 Order name: CMP; Complete Time: 22:36 08/31 22:36 Interpretation: Normal except: GLUC 118; AST 318; ALT 193; BILIT 1.2. 08/31 21:24 Order name: Lipase; Complete Time: 22:36 08/31 22:36 Interpretation: Reviewed. 08/31 21:24 Order name: Test, Urine; Complete Time: 22:49 cp 08/31 21:24 Order name: Urinalysis w/ reflexes; Complete Time: 22:49 cp 08/31 22:49 Interpretation: Normal except: UPROT TRACE; UUROB 2+; MUCUS 3+. 08/31 23:11 Order name: Lactate w/ 2H reflex if indic.; Complete Time: 01:19 cp 08/31 23:11 Order name: Blood Culture Adult (2) 08/31 21:24 Order name: Abdomen Limited US: gallbladder 08/31 21:24 Order name: XRAY Chest (1 view); Complete Time: 22:36 08/31 21:24 Order name: IV Saline Lock; Complete Time: 21:59 cp 08/31 21:24 Order name: Labs collected and sent; Complete Time: 21:59 cp 08/31 21:24 Order name: NPO; Complete Time: 21:59 cp Administered Medications: 08/31 21:55 Drug: Ondansetron IVP 4 mg Route: IVP; Site: left forearm; aa9 22:33 Follow up: Response: No adverse reaction aa9 21:59 Drug: NS 0.9% IV 1000 ml Route: IV; Rate: 1 bolus; Site: left forearm; aa9 23:56 Follow up: Response: No adverse reaction; IV Status: Completed infusion; IV Intake: aa9 1000ml 21:59 Drug: Famotidine IVP 20 mg Route: IVP; Site: left forearm; aa9 22:33 Follow up: Response: No adverse reaction aa9 21:59 Drug: morphine IVP or IV 4 mg Route: IVP; Infused Over: 4 mins; Site: left forearm; aa9 22:32 Follow up: Response: No adverse reaction; Pain is decreased aa9 23:47 Drug: HYDROmorphone IVP 1 mg Route: IVP; Site: left forearm; aa9 23:56 Follow up: Response: No adverse reaction aa9 09/01 00:42 Follow up: Response: No adverse reaction; Pain is decreased aa9 00:41 Drug: Piperacillin-Tazobactam IVPB 3.375 grams Route: IVPB; Infused Over: 60 mins; aa9 Site: left forearm; 01:12 Follow up: Response: No adverse reaction; IV Status: Completed infusion; IV Intake: aa9 100ml 02:07 Drug: NS 0.9% IV 1000 ml Route: IV; Rate: 100 ml/hr; Site: left forearm; aa9 02:09 Follow up: Response: No adverse reaction; IV Status: Infusion continued upon transfer; kd3 IV Intake: 50ml 02:14 Drug: Ondansetron IVP 4 mg Route: IVP; Site: left forearm; kd3 Disposition Summary: 09/01/22 00:02 Transfer Ordered Transfer Location: [facility] cp Reason: Higher level of care cp Condition: Stable cp Problem: new cp Symptoms: have improved cp Accepting Physician: Doctor(09/01/22 02:15) kd3 Diagnosis - Abnormal results of liver function studies cp - Cholecystitis, unspecified cp Forms: - Medication Reconciliation Form cp - SBAR form cp Signatures: Dispatcher [employer] EDMS Curt Conn PA PA cp Doucette, Kyli RN RN kd3 Sindy Meneses RN RN aa9 Corrections: (The following items were deleted from the chart) 08/31 22:36 22:36 Normal except: GLUC 118. cp cp 22:36 22:36 Normal except: GLUC 118; AST 318. cp cp 22:36 22:36 Normal except: GLUC 118; AST 318; ALT 193. cp cp 09/01 00:03 00:02 Doctor cp cp 00:03 00:02 Calculus of gallbladder and bile duct with acute cholecystitis with obstruction cpcp 02:15 00:03 Doctor cp kd3
[2022-09-01] MEDS ORDERED: NA CHLORIDE 0.9% 100 ML ONE (00:23)
[2022-09-01] MEDS ORDERED: PIPERACIL/TAZO 3.375 GM VIAL IV ONE (00:23)
[2022-09-01] MEDS ORDERED: NA CHLORIDE 0.9% 1,000 ML ONE (02:12)
[2022-09-01] MEDS ORDERED: ONDANSETRON 4 MG/2 ML VIAL ONE (02:18)
[2022-09-01 03:12] VITALS: TEMP 98
[2022-09-01 03:16] VITALS: BP 108/75; O2SAT 95
--- NOTE | 2022-09-01 14:16 | RAD REPORT ---
EXAM DESCRIPTION: US - Abdomen Exam Limited - 08/31/2022 10:38 pm CLINICAL HISTORY: ABD PAIN. COMPARISON: None. TECHNIQUE: Ultrasound of the abdomen with Doppler flow imaging was obtained. FINDINGS: Gallbladder: Cholelithiasis. Borderline gallbladder wall thickness of 0.3 cm. Trace perich olecystic fluid. Sonographic Mcdonnell sign was not described by the technologist. Bile ducts: No dilatation of the intrahepatic bile ducts. The common bile duct measures 0.9 cm in samantha meter at the ana laura hepatis. No filling defects are visualized on this exam. IMPRESSION: 1. Cholelithiasis with borderline gallbladder wall thickening and trace pericholecysti c free fluid. Correlate for potential acute cholecystitis. 2. Dilated common bile duct. Correlate for potential choledocholithiasis. Consider MRCP if necessar y. Electronically signed by: Ade Lees MD 08/31/2022 11:24 PM CDT Due to temporary technical issues with the PACS/Fluency reporting system, reports are being signed by the in house radiologists without review as a courtesy to insure prompt reporting. The interpreting radiologist is fully responsible for the content of the report.
== END 2022-09-01 02:15 | disposition short-term general hospital (02) ==
LOC: ER 20:54
DX: K81.9 Cholecystitis, unspecified (principal); R94.5 Abnormal results of liver function studies
CPT/HCPCS: 96365; 96361; 87040 ×2; 85025; 81001; 36415; 81025; 83605; 83690; 80053; 71045; 76705; 96375; 99285; J2543; J1170; J2405 ×2; J7030 ×2